=== PATIENT | male | born 1970 | race Two or more races ===

== ENCOUNTER 2018-09-26 12:27 | Emergency (ER) | payer MEDICAID ==
[~2018-09-26] VITALS: Ht 177.8 cm; Wt 90.7 kg
[~2018-09-26 12:27] MED LIST: ASPI81TA27 PO; ATOR40TA52 PO; CLOP75TA41 PO; LISI-646 PO; METO25TA5 PO; NITR0.4S29 SL
[2018-09-26 13:23] VITALS: BP 115/76
[2018-09-26 13:23] LABS: Basophils # (auto) 0.1 uL; Basophils % (auto) 1.3 % (0.0-2.0); Eosinophils # (auto) 0.4 uL; Eosinophils % (auto) 4.6 % (0.0-7.0); Monocytes # (auto) 0.7 uL; Neutrophils # (auto) 6.1 uL
[2018-09-26 13:24] LABS: Hematocrit 45.7 % (41.0-53.0); Hemoglobin 15.4 g/dL (13.5-17.5); Lymphocytes # (auto) 1.3 uL; Lymphocytes % (auto) 14.9 % (10.0-50.0); Mean Corpuscular Hemoglobin 30.8 pg (28.0-32.0); Mean Corpuscular Hgb Conc. 33.6 g/dL (32.0-36.0); Mean Corpuscular Volume 91.5 fL (80.0-100.0); Monocytes % (auto) 8.2 % (0.0-12.0); Platelet Count (auto) 464 10^3/uL (140-450); Red Cell Distribution Width 13.5 % (11.8-14.3); White Blood Cell 8.6 10^3/uL (4.4-10.8)
[2018-09-26 13:39] LABS: Calcium 9.2 mg/dL (8.5-10.1); Potassium 4.4 mmol/L (3.5-5.1)
[2018-09-26 13:45] LABS: BUN/Creatinine Ratio 15.5; Bilirubin, Total 0.4 mg/dL (0.2-1.0); Total Protein 8.1 g/dL (6.4-8.2)
[2018-09-26 14:07] LABS: Urine Bacteria NONE SEEN /hpf (None Seen); Urine Blood Negative /uL (Negative); Urine Hyaline Cast MANY /lpf (0 - 2); Urine Mucus FEW (None Seen); Urine Specific Gravity 1.019 (1.001-1.035); Urine Sperm PRESENT /hpf (None Seen); Urine WBC 4 /hpf (0 - 3)
== END 2018-09-26 16:11 | disposition home or self-care (01) ==
LOC: ER 12:31
DX: J40 Bronchitis, not specified as acute or chronic (principal); E78.5 Hyperlipidemia, unspecified; I10 Essential (primary) hypertension; I25.2 Old myocardial infarction; Z90.49 Acquired absence of other specified parts of digestive tract; Z87.891 Personal history of nicotine dependence; Z98.61 Coronary angioplasty status
CPT/HCPCS: 36415; 71045; 80053; 81001; 84484; 85025; 93005

== ENCOUNTER 2018-12-04 13:58 | Emergency (ER) | payer MEDICAID ==
[~2018-12-04] VITALS: Ht 177.8 cm; Wt 90.7 kg
[~2018-12-04 13:58] MED LIST changes: +ASPI-404 PO; -ASPI81TA27 PO
[2018-12-04 17:43] VITALS: BP 104/67
== END 2018-12-04 20:03 | disposition home or self-care (01) ==
LOC: ER 14:07
DX: R51 Headache (principal); R05 Cough; I10 Essential (primary) hypertension; I25.2 Old myocardial infarction; E78.00 Pure hypercholesterolemia, unspecified; Z90.49 Acquired absence of other specified parts of digestive tract; Z87.891 Personal history of nicotine dependence
CPT/HCPCS: 70450

== ENCOUNTER 2018-12-24 18:43 | Emergency (ER) | payer MEDICAID ==
[~2018-12-24] VITALS: Ht 177.8 cm; Wt 96.2 kg
[2018-12-24 18:56] VITALS: BP 156/106
[2018-12-24 20:26] LABS: Urine WBC None Seen /hpf (0 - 3)
[2018-12-24 20:40] LABS: Urine Bacteria NONE SEEN /hpf (None Seen); Urine Blood 2+ /uL (Negative); Urine Hyaline Cast FEW /lpf (0 - 2); Urine Mucus FEW (None Seen); Urine Specific Gravity 1.007 (1.001-1.035)
[2018-12-24 20:56] LABS: Alcohol, Urine < 3.0 mg/dL (0-5); Amphetamine Screen, Urine POSITIVE (NEGATIVE); Barbiturate Scree,Urine NEGATIVE (NEGATIVE); Benzodiazephine Screen, Urine NEGATIVE (NEGATIVE); Cannabinoid Screen, Urine NEGATIVE (NEGATIVE); Cocaine Screen, Urine NEGATIVE (NEGATIVE); Opiate Scree,Urine NEGATIVE (NEGATIVE); Phencyclidine Screen, Urine NEGATIVE (NEGATIVE)
== END 2018-12-25 00:14 | disposition left against medical advice (07) ==
LOC: ER 18:46
DX: R31.9 Hematuria, unspecified (principal); Z53.21 Procedure and treatment not carried out due to patient leaving prior to being seen by health care provider
CPT/HCPCS: 74176; 80307; 81001

== ENCOUNTER 2022-07-09 11:58 | Inpatient (IN) | payer MEDICAID ==
[~2022-07-09] VITALS: Ht 177.8 cm; Wt 94.7 kg
[~2022-07-09 11:58] MED LIST changes: -ASPI-404 PO; +ASPI-543 PO; -CLOP75TA41 PO; +CLOP75TA70 PO; -LISI-646 PO; +LISI20TA28 PO
[2022-07-09 13:00] LABS: Basophils # (auto) 0.1 10 ^3/uL (0-0.2); Basophils % (auto) 1.2 % (0.0-2.0); Eosinophils # (auto) 0.3 10 ^3/uL (0-0.8); Eosinophils % (auto) 3.6 % (0.0-7.0); Hematocrit 43.8 % (41.0-53.0); Hemoglobin 15.4 g/dL (13.5-17.5); Lymphocytes # (auto) 2.1 10 ^3/uL (0.4-5.4); Lymphocytes % (auto) 25.9 % (10.0-50.0); Mean Corpuscular Hemoglobin 31.1 pg (28.0-32.0); Mean Corpuscular Hgb Conc. 35.1 g/dL (32.0-36.0); Mean Corpuscular Volume 88.6 fL (80.0-100.0); Monocytes # (auto) 0.3 10 ^3/uL (0-1.3); Monocytes % (auto) 4.2 % (0.0-12.0); Neutrophils # (auto) 5.3 10 ^3/uL (1.6-8.6); Neutrophils % (auto) 65.1 % (37.0-80.0); Nucleated Red Blood Cells % 0.1 %; Red Blood Cells 4.94 10^6/uL (4.5-5.90); Red Cell Distribution Width 13.7 % (11.8-14.3); White Blood Cell 8.2 10^3/uL (4.4-10.8)
[2022-07-09] MEDS ORDERED: ASPirin 325 MG TAB PO ONE (13:15)
[2022-07-09 13:16] LABS: INR 0.92 (0.9-1.15); Partial Thromboplastin Time 23.6 sec (24.6-33.4)
[2022-07-09 13:31] LABS: Albumin 3.7 g/dL (3.4-5.0); BUN/Creatinine Ratio 8.6; Bilirubin, Total 0.6 mg/dL (0.2-1.0); Calcium 9.5 mg/dL (8.5-10.1); Potassium 4.5 mmol/L (3.5-5.1); Total Protein 7.1 g/dL (6.4-8.2)
[2022-07-09] MEDS ORDERED: MORPHINE SULFATE INJ 2 MG/ml SYRG IV PRN (14:30)
[2022-07-09] MEDS ORDERED: NITROGLYCERIN 0.4 MG SL TAB SL PRN (14:30)
[2022-07-09] MEDS ORDERED: ACETAMINOPHEN 325 MG TAB PO PRN (14:30)
[2022-07-09] MEDS ORDERED: ENOXAPARIN SOD 100 MG/1 ML SYRINGE SC ONE (14:30)
[2022-07-09] MEDS: SODIUM CHLORIDE 0.9% 1,000 ML IV SCH ×2 (14:48→23:50)
[2022-07-09 15:59] LABS: Cholesterol 266 mg/dL (< 200); HDL Cholesterol 35 mg/dL (40-59); Triglycerides 422 mg/dL (< 150)
[2022-07-09] MEDS: hydrALAZINE HCL 20 MG/ML VL IV PRN (17:30)
[2022-07-09] MEDS ORDERED: hydrALAZINE HCL 20 MG/ML VL IV SCH (18:00)
[2022-07-09] MEDS: traZODone HCL 50 MG TAB PO SCH (21:18)
[2022-07-09] MEDS: ATORVASTATIN 20 MG TAB PO SCH (21:18)
[2022-07-09] MEDS: CARVEDILOL 3.125 MG TAB PO SCH (21:20)
[2022-07-09] MEDS: ENOXAPARIN SOD 100 MG/1 ML SYRINGE SC SCH (21:20)
[2022-07-09] MEDS ORDERED: MELATONIN 5 MG TAB PO ONE (22:00)
[2022-07-10] VITALS (7 sets, daily range): BP systolic 100–161; BP diastolic 61–103
[2022-07-10 05:03] LABS: Basophils # (auto) 0.1 10 ^3/uL (0-0.2); Basophils % (auto) 1.3 % (0.0-2.0); Eosinophils # (auto) 0.4 10 ^3/uL (0-0.8); Eosinophils % (auto) 5.1 % (0.0-7.0); Hematocrit 42.2 % (41.0-53.0); Hemoglobin 14.8 g/dL (13.5-17.5); Lymphocytes # (auto) 2.2 10 ^3/uL (0.4-5.4); Lymphocytes % (auto) 27.6 % (10.0-50.0); Mean Corpuscular Hemoglobin 31.3 pg (28.0-32.0); Mean Corpuscular Hgb Conc. 35.1 g/dL (32.0-36.0); Mean Corpuscular Volume 89.1 fL (80.0-100.0); Monocytes # (auto) 0.4 10 ^3/uL (0-1.3); Monocytes % (auto) 5.1 % (0.0-12.0); Neutrophils # (auto) 4.9 10 ^3/uL (1.6-8.6); Neutrophils % (auto) 60.9 % (37.0-80.0); Nucleated Red Blood Cells % 0.2 %; Red Blood Cells 4.74 10^6/uL (4.5-5.90)
[2022-07-10 05:38] LABS: Albumin 3.2 g/dL (3.4-5.0); BUN/Creatinine Ratio 14.1; Calcium 8.4 mg/dL (8.5-10.1); Potassium 4.1 mmol/L (3.5-5.1)
[2022-07-10 05:41] LABS: Bilirubin, Total 0.4 mg/dL (0.2-1.0); Total Protein 6.8 g/dL (6.4-8.2)
[2022-07-10] MEDS: SODIUM CHLORIDE 0.9% 1,000 ML IV SCH (07:41)
[2022-07-10] MEDS: CARVEDILOL 3.125 MG TAB PO SCH ×2 (09:10→21:46)
[2022-07-10] MEDS: LISINOPRIL 5 MG TAB PO SCH (09:11)
[2022-07-10] MEDS: ASPirin 81 mg TAB PO SCH (09:12)
[2022-07-10] MEDS: ENOXAPARIN SOD 100 MG/1 ML SYRINGE SC SCH ×2 (09:13→21:47)
[2022-07-10] MEDS ORDERED: CARVEDILOL 3.125 MG TAB PO SCH (10:00)
[2022-07-10] MEDS: FUROSEMIDE 40 MG/4 ML VIAL IV SCH (10:32)
[2022-07-10] MEDS: traZODone HCL 50 MG TAB PO SCH (21:46)
[2022-07-10] MEDS: ATORVASTATIN 20 MG TAB PO SCH (21:47)
[2022-07-11 05:00] VITALS: BP 123/72
[2022-07-11 05:35] LABS: BUN/Creatinine Ratio 14.2; Potassium 4.4 mmol/L (3.5-5.1)
[2022-07-11 08:58] VITALS: BP 140/70
[2022-07-11] MEDS: FUROSEMIDE 40 MG/4 ML VIAL IV SCH (09:09)
[2022-07-11] MEDS: ASPirin 81 mg TAB PO SCH (09:10)
[2022-07-11] MEDS: CARVEDILOL 3.125 MG TAB PO SCH ×2 (09:11→21:36)
[2022-07-11] MEDS: LISINOPRIL 5 MG TAB PO SCH (09:12)
[2022-07-11] MEDS: ENOXAPARIN SOD 100 MG/1 ML SYRINGE SC SCH ×2 (09:15→21:38)
[2022-07-11] MEDS: hydrALAZINE HCL 20 MG/ML VL IV PRN (11:44)
[2022-07-11 13:00] VITALS: BP 153/78
[2022-07-11] MEDS: SODIUM CHLORIDE 0.9% 1,000 ML IV SCH (16:30)
[2022-07-11 17:26] VITALS: BP 134/77
[2022-07-11] MEDS: traZODone HCL 50 MG TAB PO SCH (21:37)
[2022-07-11] MEDS: ATORVASTATIN 20 MG TAB PO SCH (21:37)
[2022-07-11 22:00] VITALS: BP 149/90
[2022-07-12 05:00] VITALS: BP 128/83
[2022-07-12 06:13] LABS: Calcium 8.6 mg/dL (8.5-10.1); Potassium 3.8 mmol/L (3.5-5.1)
[2022-07-12 06:17] LABS: BUN/Creatinine Ratio 10.6
[2022-07-12] MEDS: CARVEDILOL 3.125 MG TAB PO SCH (08:47)
[2022-07-12] MEDS: ASPirin 81 mg TAB PO SCH (08:47)
[2022-07-12] MEDS: FUROSEMIDE 40 MG/4 ML VIAL IV SCH (08:48)
[2022-07-12] MEDS: ENOXAPARIN SOD 100 MG/1 ML SYRINGE SC SCH (08:49)
[2022-07-12] MEDS: SODIUM CHLORIDE 0.9% 1,000 ML IV SCH (08:49)
[2022-07-12 09:00] VITALS: BP 155/78
[2022-07-12] MEDS ORDERED: LISINOPRIL 5 MG TAB PO SCH (10:00)
== END 2022-07-12 11:10 | disposition home or self-care (01) | DRG 190 ==
LOC: ER 11:58 → TELE 14:33 → TELE-WESTW 22:46
PROVIDERS: ADMIT Nurse Practitioner Family; ATTEND Internal Medicine
DX: I21.4 Non-ST elevation (NSTEMI) myocardial infarction (principal); I50.23 Acute on chronic systolic (congestive) heart failure; N17.9 Acute kidney failure, unspecified; I25.119 Atherosclerotic heart disease of native coronary artery with unspecified angina pectoris; E66.9 Obesity, unspecified; I13.0 Hypertensive heart and chronic kidney disease with heart failure and stage 1 through stage 4 chronic kidney disease, or unspecified chronic kidney disease; E11.22 Type 2 diabetes mellitus with diabetic chronic kidney disease; N18.9 Chronic kidney disease, unspecified; E78.5 Hyperlipidemia, unspecified; F15.10 Other stimulant abuse, uncomplicated; I08.0 Rheumatic disorders of both mitral and aortic valves; M10.9 Gout, unspecified; I25.2 Old myocardial infarction; Z68.30 Body mass index [BMI] 30.0-30.9, adult; Z87.891 Personal history of nicotine dependence; Z88.6 Allergy status to analgesic agent; Z91.199 Patient's noncompliance with other medical treatment and regimen due to unspecified reason; Z95.5 Presence of coronary angioplasty implant and graft; Z86.718 Personal history of other venous thrombosis and embolism; Z90.49 Acquired absence of other specified parts of digestive tract; Z88.1 Allergy status to other antibiotic agents; Z88.5 Allergy status to narcotic agent
CPT/HCPCS: 36415; 71045; 80048; 80053; 80061; 83036; 83880; 84443; 84484; 85025; 85379; 85610; 85730; 87426; 93005; 93306; 99291; G0378

== ENCOUNTER 2023-03-16 03:44 | Emergency (ER) | payer MEDICAID ==
[~2023-03-16] VITALS: Ht 177.8 cm; Wt 100.0 kg
[~2023-03-16 03:44] MED LIST changes: -LISI20TA28 PO; +LISI20TA56 PO
[2023-03-16 03:45] VITALS: BP 134/94; PULSE 110; RESP 20; O2SAT 94
== END 2023-03-16 06:02 | disposition left against medical advice (07) ==
LOC: ER 03:44
DX: M25.521 Pain in right elbow (principal); M79.605 Pain in left leg; M10.9 Gout, unspecified; Z53.21 Procedure and treatment not carried out due to patient leaving prior to being seen by health care provider

== ENCOUNTER 2024-03-28 06:15 | Emergency (ER) | payer MEDICAID, OTHER ==
[~2024-03-28] VITALS: Ht 172.7 cm; Wt 96.0 kg
--- NOTE | 2024-03-28 07:06 | ED.PDOC ---
History of Present Illness HPI Comments 53-year-old male with PMHx Gout, [place] presents with a chief complaint of flank pain and hematuria x 2 days. Patient states that his pain is localized to his right flank, non-radiating, and is associated with hematuria. Patient denies any dysuria or other urinary symptoms. Patient mentions that he has been exercising daily at the gym and was unsure if his pain is due to over straining his muscles. No other symptoms or modifying factors present at this time. Chief Complaint: Flank Pain Time Seen by MD: 06:48 Primary Care Provider: Toro Reviewed Notes: Medications, Allergies Allergies: Coded Allergies: Acetaminophen (Verified Allergy, Unknown, 09/17/18) Hydrocodone (Verified Allergy, Unknown, 09/17/18) Home Meds Reported Medications Metoprolol Tartrate (Metoprolol Tartrate) 25 Mg Tab, 25 MG PO TID for 30 Days, MG 09/19/18 Clopidogrel Bisulfate (CLOPIDOGREL) 75 Mg Tab, 1 TAB PO DAILY, #90 TAB 1 Refill 09/19/18 Aspirin (Aspir-Low) 81 Mg Tab, 81 MG PO DAILY for 30 Days, MG 09/19/18 Nitroglycerin (NTROSTAT SUBLINGUAL) 0.4 Mg Sl, 0.4 MG SL PRN *MAY REPEAT EVERY 5 MINUTES X 3 TOTAL IF NO RELIEF, INITIATE ANALGESIC THERAPY. NOTIFY PHYSICIAN *Do not crush. 09/19/18 Lisinopril (Lisinopril) 20 Mg Tab, 20 MG PO BID for 30 Days, MG 09/19/18 Atorvastatin Calcium (ATORVASTATIN CALCIUM) 40 Mg Tab, 1 TAB PO QPM, #90 TAB 3 Refills 09/19/18 Information Source: Patient Mode of Arrival: Ambulatory Severity: Moderate Timing: Days Duration: Since onset Prehospital treatment: None Past Medical History PAST MEDICAL HISTORY: Gout, High Lipids, HTN, [place] Surgical History: Cholecystectomy, PTCA Family History Family History: Unknown Social History Smoker: Non-Smoker, Quit Less Than 1 Year Alcohol: Denies ETOH Use Drugs: Denies Drug Use Lives In: Home Constitutional: denies: chills, diaphoresis, fatigue, fever, malaise, sweats, weakness, others EENTM: denies: blurred vision, double vision, ear bleeding, ear discharge, ear drainage, ear pain, ear ringing, eye pain, eye redness, hearing loss, mouth pain, mouth swelling, nasal discharge, nose bleeding, nose congestion, nose pain, photophobia, tearing, throat pain, throat swelling, voice changes, others Respiratory: denies: cough, hemoptysis, orthopnea, SOB at rest, shortness of breath, SOB with excertion, stridor, wheezing, others Cardiovascular: denies: chest pain, dizzy spells, diaphoresis, Dyspnea on exertion, edema, irregular heart beat, left arm pain, lightheadedness, palpitations, PND, syncope, others Gastrointestinal: denies: abdomen distended, abdominal pain, blood streaked bowels, constipated, diarrhea, dysphagia, difficulty swallowing, hematemesis, melena, nausea, poor appetite, poor fluid intake, rectal bleeding, rectal pain, vomiting, others Genitourinary: reports: flank pain, hematuria; denies: burning, dysuria, frequency, incontinence, penile discharge, penile sore, pain, testicle pain, testicle swelling, urgency, others Neurological: denies: dizziness, fainting, headache, left sided numbness, left sided weakness, numbness, paresthesia, pre-existing deficit, right sided numbness, right sided weakness, seizure, speech problems, tingling, tremors, weakness, others Musculoskeletal: denies: back pain, gout, joint pain, joint swelling, muscle pa in, muscle stiffness, neck pain, others Integumetry: denies: bruises, change in color, change in hair/nails, dryness, laceration, lesions, lumps, rash, wounds, others Allergic/Immunocompromised: denies: Difficulty Healing, Frequent Infections, Hives, Itching, others Hematologic/Lymphatic: denies: anemia, blood clots, easy bleeding, easy bruising, swollen glands, others Endocrine: denies: excessive hunger, excessive sweating, excessive thirst, excessive urination, flushing, intolerance to cold, intolerance to heat, unexplained weight gain, unexplained weight loss, others Psychiatric: denies: anxiety, bipolar disorder, depression, hopeless, panic disorder, schizophrenia, sleepless, suicidal, others All Other Systems: Reviewed and Negative Physical Exam General Appearance: No Apparent Distress, Normal HEENT: Normal ENT Inspection, Pharynx Normal, TMs Normal Neck: Full Range of Motion, Non-Tender, Normal, Normal Inspection Respiratory: Chest Non-Tender, Lungs Clear, No Accessory Muscle Use, No Respiratory Distress, Normal Breath Sounds Cardiovascular: No Edema, No JVD, No Murmur, No Gallop, Normal Peripheral Pulses, Regular Rate/Rhythm Breast Exam: Deferred Gastrointestinal: No Organomegaly, Non Tender, No Pulsatile Mass, Normal Bowel Sounds, Soft Genitalia: Deferred Pelvic: Deferred Rectal: Deferred Extremities: No calf tenderness, Normal capillary refill, Normal inspection, Normal range of motion, Non-tender, No pedal edema Musculoskeletal : Apperance: Normal Neurologic: Alert, fluorescent solution mixer II-XII nml as Tested, No Motor Deficits, Normal Affect, Normal Mood, No Sensory Deficits Cerebellar Function: Normal Reflexes: Normal Skin: Dry, Normal Color, Warm Lymphatic: No Adenopathy Was a procedure done? Was a procedure done?: No Differential Dx Considerations may include: renal colic, uti, muscle strain X-Ray, Labs, Meds, VS Vital Signs Date Time Temp Pulse Resp B/P (MAP) Pulse Ox O2 Delivery O2 Flow Rate FiO2 03/28/24 07:28 75 17 03/28/24 07:28 98.1 75 17 153/101 (118) 94 98.1 03/28/24 06:15 97.6 82 20 202/127 (152) 96 Lab Test 03/28/24 07:04 Range/Units White Blood Count 7.6 4.4-10.8 10^3/uL Red Blood Count 5.02 4.5-5.90 10^6/uL Hemoglobin 15.9 13.5-17.5 g/dL Hematocrit 45.5 41.0-53.0 % Mean Corpuscular Volume 90.6 80.0-100.0 fL Mean Corpuscular Hemoglobin 31.6 28.0-32.0 pg Mean Corpuscular Hemoglobin Concent 34.9 32.0-36.0 g/dL Red Cell Distribution Width 13.2 11.8-14.3 % Platelet Count 296 140-450 10^3/uL Mean Platelet Volume 8.0 6.9-10.8 fL Neutrophils (%) (Auto) 56.3 37.0-80.0 % Lymphocytes (%) (Auto) 31.8 10.0-50.0 % Monocytes (%) (Auto) 4.7 0.0-12.0 % Eosinophils (%) (Auto) 6.1 0.0-7.0 % Basophils (%) (Auto) 1.1 0.0-2.0 % Neutrophils # (Auto) 4.3 1.6-8.6 10 ^3/uL Lymphocytes # (Auto) 2.4 0.4-5.4 10 ^3/uL Monocytes # (Auto) 0.4 0-1.3 10 ^3/uL Eosinophils # (Auto) 0.5 0-0.8 10 ^3/uL Basophils # (Auto) 0.1 0-0.2 10 ^3/uL Nucleated Red Blood Cells 0.2 % Sodium Level 135 L 136-145 mmol/L Potassium Level 4.1 3.5-5.1 mmol/L Chloride Level 104 98-107 mmol/L Carbon Dioxide Level 21 20-31 mmol/L Anion Gap 10 5-15 Blood Urea Nitrogen 17 9-23 mg/dL Creatinine 1.78 H 0.700-1.30 mg/dL Glomerular Filtration Rate Calc 45 >90 mL/min BUN/Creatinine Ratio 9.6 L 10.0-20.0 Serum Glucose 338 H 74-106 mg/dL Calcium Level 10.5 H 8.7-10.4 mg/dL Current Medications Medications (Trade) Dose Ordered Sig/Prince Route Start Time Stop Time Status Last Admin Sodium Chloride 1,000 ml @ 1,000 mls/hr Q1H ONCE IV 03/28/24 07:00 03/28/24 07:59 DC 03/28/24 07:35 Ondansetron HCl (Zofran) 4 mg ONCE ONCE IV 03/28/24 07:00 03/28/24 07:01 DC 03/28/24 07:42 Ketorolac Tromethamine (Toradol Injection) 15 mg ONCE ONCE IV 03/28/24 07:00 03/28/24 07:01 DC 03/28/24 07:42 Tamsulosin HCl (Flomax) 0.4 mg ONCE ONCE PO 03/28/24 07:00 03/28/24 07:01 DC 03/28/24 07:35 Time of 1ST Reevaluation: 07:18 Reevaluation 1ST: Unchanged Patient Education/Counseling: Diagnosis, Treatment, Prognosis Family Education/Counseling: No Family Present Departure 1 Departure Time of Disposition: 08:34 (Patient presented with abdominal pain that was concerning for possible appendicits, gastritis, cholecystitis, colitis, gastroenteritis, or orther possible surgical emergency. Data: 1. I ordered and reviewed the result of at least 3 labs including a CBC, BMP, and Urinalysis. 2. I independently interpreted the following tests: CT Abdoment and Pelvis is concerning for ureteral colic .Risk:This patient has a high risk of morbidity due to further diagnostic testing or treatment and may suffer from an acute abdominal process disorder. Fortunately workup reveals ureteral colic and patient can be safely discharged to home with outpatient follow up.Patient was offered admission to the hospital but instead decided to go home.) Impression: Primary Impression: Ureteral colic Disposition: HOME / SELF CARE / HOMELESS Condition: Stable Additional Instructions: You have a kidney stone. You were prescribed flomax. Please take as directed. For pain you can take ibuprofen as needed. You were prescribed oxycodone to take as needed for breakthrough pain. Please take as directed. You should follow up with your regular doctor or a urologist within one week to ensure you are doing better. If your symptoms worsen or you have any other concerns then please return to the ER. e-Prescriptions Oxycodone HCl (Oxycodone Hydrochloride) 5 Mg Tab 5 MG PO TID PRN for 4 Days, #12 TAB Prov: DASIA HAWKINS MD 03/28/24 Tamsulosin Hcl (Flomax) 0.4 Mg Cap 1 CAP PO DAILY for 14 Days, #30 CAP 11 Refills Prov: DASIA HAWKINS MD 03/28/24 Discharged With: Spouse Critical Care Note Critical Care Time?: Yes Critical care comment: Acute abdominal pain Authorized and Performed by: Dasia Hawkins MD Total critical care time: Approximately 38 minutes Due to a high probability of clinically significant, life threatening deterioration, the patient required my highest level of preparedness to i ntervene emergently and I personally spent this critical care time directly and personally managing the patient. This critical care time included obtaining a history; examining the patient; pulse oximetry; ordering and review of studies; arranging urgent treatment with development of a management plan; evaluation of patient's response to treatment; frequent reassessment; and, discussions with other providers. This critical care time was performed to assess and manage the high probability of imminent, life-threatening deterioration that could result in multi-organ failure. It was exclusive of separately billable procedures and treating other patients and teaching time. Please see my other sections and the rest of the note for further information on patient assessment and treatment. Stability Stability form required: No I personally scribed for DASIA HAWKINS MD ([email or web address]) on 03/28/24 at 07:06. Electronically submitted by Angel Hernandez ([email or web address]). DASIA HAWKINS MD Mar 28, 2024 07:06
[2024-03-28 07:31] LABS: Anion Gap 10 (5-15); Carbon Dioxide 21 mmol/L (20-31); Chloride 104 mmol/L (98-107); Potassium 4.1 mmol/L (3.5-5.1); Sodium 135 mmol/L (136-145)
[2024-03-28 07:32] LABS: Calcium 10.5 mg/dL (8.7-10.4)
[2024-03-28] MEDS: TAMSULOSIN HYDROCHLORIDE 0.4 MG CAP PO ONE (07:35)
[2024-03-28] MEDS: SODIUM CHLORIDE 0.9% 1,000 ML IV ONE (07:35)
[2024-03-28 07:37] LABS: BUN/Creatinine Ratio 9.6 (10.0-20.0); Basophils # (auto) 0.1 10 ^3/uL (0-0.2); Basophils % (auto) 1.1 % (0.0-2.0); Blood Urea Nitrogen 17 mg/dL (9-23); Eosinophils # (auto) 0.5 10 ^3/uL (0-0.8); Eosinophils % (auto) 6.1 % (0.0-7.0); Glucose 338 mg/dL (74-106); Hematocrit 45.5 % (41.0-53.0); Hemoglobin 15.9 g/dL (13.5-17.5); Lymphocytes # (auto) 2.4 10 ^3/uL (0.4-5.4); Lymphocytes % (auto) 31.8 % (10.0-50.0); Mean Corpuscular Hemoglobin 31.6 pg (28.0-32.0); Mean Corpuscular Hgb Conc. 34.9 g/dL (32.0-36.0); Mean Corpuscular Volume 90.6 fL (80.0-100.0); Monocytes # (auto) 0.4 10 ^3/uL (0-1.3); Monocytes % (auto) 4.7 % (0.0-12.0); Neutrophils # (auto) 4.3 10 ^3/uL (1.6-8.6); Neutrophils % (auto) 56.3 % (37.0-80.0); Nucleated Red Blood Cells % 0.2 %; Platelet Count (auto) 296 10^3/uL (140-450); Red Blood Cells 5.02 10^6/uL (4.5-5.90); Red Cell Distribution Width 13.2 % (11.8-14.3); White Blood Cell 7.6 10^3/uL (4.4-10.8)
[2024-03-28] MEDS: ONDANSETRON HCL 4 MG/2 ML VIAL IV ONE (07:42)
[2024-03-28] MEDS: KETOROLAC TROMETH 30 MG/ML 1ML VIAL IV ONE (07:42)
--- NOTE | 2024-03-28 07:50 | DVH ---
Exam: CT CT AB PEL WO CON-NO ORAL OR IV History: left flank pain Comparison Study: None available at time of dictation. Technique: Multidetector spiral CT of the abdomen and pelvis was performed from lung bases to pubic s ymphysis. Imaging was performed without intravenous contrast. Coronal and sagittal multiplanar refor mats were obtained from the axial data set by the technologist. Radiation Dose : 1. Abdomen/Pelvis: CTDIvol mGy, DLP mGy*cm. Findings: Evaluation of vasculature and solid organs is limited due to lack of intravenous contrast use. Lung Bases: Lung bases are clear. Visualized portions of the heart and pericardium are unremarkable. Liver: The liver is normal in size. No focal lesions. Diffusely hypoattenuating liver parenchyma con sistent with hepatic steatosis. Gallbladder and Biliary Tree: The gallbladder is surgically absent. No intrahepatic or extrahepatic biliary ductal dilatation. Spleen: Unremarkable Pancreas: The pancreas is grossly unremarkable. Adrenal Glands: Unremarkable Kidneys: Mild left hydroureteronephrosis due to obstructing 4 mm distal left ureteral calculus. Sabas tional nonobstructing left intrarenal calculi measuring up to 3 mm in the left kidney. GI tract: The stomach is grossly normal in appearance. No evidence of small bowel wall thickening or abnormal dilatation to suggest bowel obstruction. The colon is unremarkable. Sigmoid diverticulosis without diverticulitis. The appendix is normal in caliber. Peritoneum/mesentery/retroperitoneum. No evidence of free intraperitoneal air. No ascites. No evidenc e of suspicious lymphadenopathy. Abdominal Wall: Unremarkable. Vasculature: The visualized abdominal aorta is normal in size and caliber. Evaluation of abdominal a nd pelvic vessels is limited due to lack of intravenous contrast. Urinary Bladder: Grossly unremarkable for degree of distention. Pelvic Organs: Unremarkable Musculoskeletal: No aggressive focal bony lesions, acute fractures or dislocation. IMPRESSION: 1. No acute abdominal or pelvic findings. 2. Hepatic steatosis. 3. Sigmoid diverticulosis without acute diverticulitis.
[2024-03-28] MEDS ORDERED: TAMS-35 PO (08:38)
[2024-03-28] MEDS ORDERED: OXYC-900 PO (08:38)
[2024-03-28 08:59] VITALS: BP 157/89; PULSE 80; RESP 20; TEMP 98.2; O2SAT 95
[2024-03-28] MEDS ORDERED: CHOL1CAP21 PO (23:50)
[2024-03-28] MEDS ORDERED: LISI10TA34 PO (23:50)
[2024-03-28] MEDS ORDERED: METF-370 PO (23:50)
[2024-03-28] MEDS ORDERED: FURO40TA4 PO (23:50)
[2024-03-28] MEDS ORDERED: GLIP10TA9 PO (23:50)
[2024-03-28] MEDS ORDERED: CARV6.2551 PO (23:50)
[2024-03-28] MEDS ORDERED: FENO54TA4 PO (23:50)
== END 2024-03-28 09:01 | disposition home or self-care (01) ==
LOC: ER 06:15
DX: N23 Unspecified renal colic (principal); I10 Essential (primary) hypertension; I25.2 Old myocardial infarction; M10.9 Gout, unspecified; E78.5 Hyperlipidemia, unspecified; Z90.49 Acquired absence of other specified parts of digestive tract; Z87.891 Personal history of nicotine dependence; Z79.02 Long term (current) use of antithrombotics/antiplatelets; Z79.82 Long term (current) use of aspirin; Z79.899 Other long term (current) drug therapy; Z88.5 Allergy status to narcotic agent; Z98.890 Other specified postprocedural states; Z88.8 Allergy status to other drugs, medicaments and biological substances
CPT/HCPCS: 36415; 74176; 80048; 85025; 96361; 96374; 96375; 99285; J1885; J2405; J7030

== ENCOUNTER 2024-03-28 10:29 | Inpatient (IN) | payer OTHER ==
[~2024-03-28] VITALS: Ht 172.7 cm; Wt 100.2 kg
[~2024-03-28 10:29] MED LIST changes: +OXYC-900 PO; +TAMS-35 PO
--- NOTE | 2024-03-28 10:47 | ED.PDOC ---
HPI Comments 53-year-old male brought in by EMS presents with a chief complaint of chest pain x onset 15 minutes. Patient was just seen and discharged from this facility this morning with a diagnosis of Ureteral Colic. Patient reports that when he got home he began to have sternal chest pressure and based on his previous [place] in the past he decided to call 911. Patient describes sensation as pressure. Patient was also hypertensive according to EMS with a BP systolic of 205. Blood sugar was 462. Chief Complaint: Chest Pain Time Seen by MD: 10:32 Primary Care Provider: Toro Reviewed Notes: Medications, Allergies Allergies: Coded Allergies: Acetaminophen (Verified Allergy, Unknown, 09/17/18) Hydrocodone (Verified Allergy, Unknown, 09/17/18) Home Meds Active Scripts Oxycodone HCl (Oxycodone Hydrochloride) 5 Mg Tab, 5 MG PO TID PRN for 4 Days, #12 TAB Prov:DASIA HAWKINS MD 03/28/24 Tamsulosin Hcl (Flomax) 0.4 Mg Cap, 1 CAP PO DAILY for 14 Days, #30 CAP 11 Refills Prov:DASIA HAWKINS MD 03/28/24 Reported Medications Metoprolol Tartrate (Metoprolol Tartrate) 25 Mg Tab, 25 MG PO TID for 30 Days, MG 09/19/18 Clopidogrel Bisulfate (CLOPIDOGREL) 75 Mg Tab, 1 TAB PO DAILY, #90 TAB 1 Refill 09/19/18 Aspirin (Aspir-Low) 81 Mg Tab, 81 MG PO DAILY for 30 Days, MG 09/19/18 Nitroglycerin (NTROSTAT SUBLINGUAL) 0.4 Mg Sl, 0.4 MG SL PRN *MAY REPEAT EVERY 5 MINUTES X 3 TOTAL IF NO RELIEF, INITIATE ANALGESIC THERAPY. NOTIFY PHYSICIAN *Do not crush. 09/19/18 Lisinopril (Lisinopril) 20 Mg Tab, 20 MG PO BID for 30 Days, MG 09/19/18 Atorvastatin Calcium (ATORVASTATIN CALCIUM) 40 Mg Tab, 1 TAB PO QPM, #90 TAB 3 Refills 09/19/18 Information Source: Patient, Emergency Med Personnel Mode of Arrival: EMS Severity: Moderate Timing: Minutes Duration: Since onset Prehospital treatment: Accucheck (462) Location: Substernal Radiation: No Radiation Quality: Pressure Onset: With Light Exertion PE Risk Factors: None History of: [place] Past Medical History PAST MEDICAL HISTORY: Gout, High Lipids, HTN, [place] Surgical History: Cholecystectomy, PTCA Family History Family History: Unknown Social History Smoker: Non-Smoker, Quit Less Than 1 Year Alcohol: Denies ETOH Use Drugs: Denies Drug Use Lives In: Home Constitutional: denies: chills, diaphoresis, fatigue, fever, malaise, sweats, weakness, others EENTM: denies: blurred vision, double vision, ear bleeding, ear discharge, ear drainage, ear pain, ear ringing, eye pain, eye redness, hearing loss, mouth pain, mouth swelling, nasal discharge, nose bleeding, nose congestion, nose pain, photophobia, tearing, throat pain, throat swelling, voice changes, others Respiratory: denies: cough, hemoptysis, orthopnea, SOB at rest, shortness of breath, SOB with excertion, stridor, wheezing, others Cardiovascular: reports: chest pain; denies: dizzy spells, diaphoresis, Dyspnea on exertion, edema, irregular heart beat, left arm pain, lightheadedness, palpitations, PND, syncope, others Gastrointestinal: denies: abdomen distended, abdominal pain, blood streaked bowels, constipated, diarrhea, dysphagia, difficulty swallowing, hematemesis, melena, nausea, poor appetite, poor fluid intake, rectal bleeding, rectal pain, vomiting, others Genitourinary: denies: burning, dysuria, flank pain, frequency, hematuria, incontinence, penile discharge, penile sore, pain, testicle pain, testicle swelling, urgency, others Neurological: denies: dizziness, fainting, headache, left sided numbness, left sided weakness, numbness, paresthesia, pre-existing deficit, right sided numbness, right sided weakness, seizure, speech problems, tingling, tremors, weakness, others Musculoskeletal: denies: back pain, gout, joint pain, joint swelling, muscle pain, muscle stiffness, neck pain, others Integumetry: denies: bruises, change in color, change in hair/nails, dryness, laceration, lesions, lumps, rash, wounds, others Allergic/Immunocompromised: denies: Difficulty Healing, Frequent Infections, Hives, Itching, others Hematologic/Lymphatic: denies: anemia, blood clots, easy bleeding, easy bruising, swollen glands, others Endocrine: denies: excessive hunger, excessive sweating, excessive thirst, excessive urination, flushing, intolerance to cold, intolerance to heat, unexplained weight gain, unexplained weight loss, others Psychiatric: denies: anxiety, bipolar disorder, depression, hopeless, panic disorder, schizophrenia, sleepless, suicidal, others All Other Systems: Reviewed and Negative Physical Exam General Appearance: No Apparent Distress, Normal HEENT: Normal ENT Inspection, Pharynx Normal, TMs Normal Neck: Full Range of Motion, Non-Tender, Normal, Normal Inspection Respiratory: Chest Non-Tender, Lungs Clear, No Accessory Muscle Use, No Resp iratory Distress, Normal Breath Sounds Cardiovascular: No Edema, No JVD, No Murmur, No Gallop, Normal Peripheral Pulses, Regular Rate/Rhythm Breast Exam: Deferred Gastrointestinal: No Organomegaly, Non Tender, No Pulsatile Mass, Normal Bowel Sounds, Soft Genitalia: Deferred Pelvic: Deferred Rectal: Deferred Extremities: No calf tenderness, Normal capillary refill, Normal inspection, Normal range of motion, Non-tender, No pedal edema Musculoskeletal : Apperance: Normal Neurologic: Alert, supplemental manager II-XII nml as Tested, No Motor Deficits, Normal Affect, Normal Mood, No Sensory Deficits Cerebellar Function: Normal Reflexes: Normal Skin: Dry, Normal Color, Warm Lymphatic: No Adenopathy Was a procedure done? Was a procedure done?: No CP Differential Dx Differential Diagnosis: Electrolyte Disorder, MAT, PAC's, PVC's Differential Diagnosis: HTN Essential, HTN Accelerated, HTN Encephalopathy Differential Diagnosis: Cholelithiasis, Gastritis, Pneumonia X-Ray, Labs, Meds, VS Vital Signs Date Time Temp Pulse Resp B/P (MAP) Pulse Ox O2 Delivery O2 Flow Rate FiO2 03/28/24 12:34 106 03/28/24 12:00 96 03/28/24 11:38 105 25 174/120 03/28/24 11:35 94 Nasal Cannula* 2 28 03/28/24 11:34 87 03/28/24 11:20 89 19 96 Room Air* 0 21 03/28/24 11:08 94 18 159/114 03/28/24 10:53 86 22 163/105 (124) 98 03/28/24 10:37 98.2 92 18 205/130 (155) 93 03/28/24 10:31 90 Lab Test 03/28/24 11:55 03/28/24 10:50 Range/Units Troponin I High Sensitivity 251 *H 250 *H </=54 ng/L White Blood Count 10.3 # 4.4-10.8 10^3/uL Red Blood Count 4.68 4.5-5.90 10^6/uL Hemoglobin 14.9 13.5-17.5 g/dL Hematocrit 42.5 41.0-53.0 % Mean Corpuscular Volume 90.7 80.0-100.0 fL Mean Corpuscular Hemoglobin 31.8 28.0-32.0 pg Mean Corpuscular Hemoglobin Concent 35.1 32.0-36.0 g/dL Red Cell Distribution Width 13.5 11.8-14.3 % Platelet Count 275 140-450 10^3/uL Mean Platelet Volume 8.3 6.9-10.8 fL Neutrophils (%) (Auto) 78.1 37.0-80.0 % Lymphocytes (%) (Auto) 14.6 10.0-50.0 % Monocytes (%) (Auto) 4.5 0.0-12.0 % Eosinophils (%) (Auto) 2.3 0.0-7.0 % Basophils (%) (Auto) 0.5 0.0-2.0 % Neutrophils # (Auto) 8.0 1.6-8.6 10 ^3/uL Lymphocytes # (Auto) 1.5 0.4-5.4 10 ^3/uL Monocytes # (Auto) 0.5 0-1.3 10 ^3/uL Eosinophils # (Auto) 0.2 0-0.8 10 ^3/uL Basophils # (Auto) 0 0-0.2 10 ^3/uL Nucleated Red Blood Cells 0.2 % Sodium Level 132 L 136-145 mmol/L Potassium Level 4.4 3.5-5.1 mmol/L Chloride Level 104 98-107 mmol/L Carbon Dioxide Level 18 L 20-31 mmol/L Anion Gap 10 5-15 Blood Urea Nitrogen 18 9-23 mg/dL Creatinine 2.00 H 0.700-1.30 mg/dL Glomerular Filtration Rate Calc 39 >90 mL/min BUN/Creatinine Ratio 9.0 L 10.0-20.0 Serum Glucose 454 #*H 74-106 mg/dL Calcium Level 9.9 8.7-10.4 mg/dL Current Medications Medications (Trade) Dose Ordered Sig/Prince Route Start Time Stop Time Status Last Admin Morphine Sulfate 4 mg ONCE ONCE IV 03/28/24 10:45 03/28/24 10:46 DC 03/28/24 11:08 Ondansetron HCl (Zofran) 4 mg ONCE ONCE IV 03/28/24 10:45 03/28/24 10:46 DC 03/28/24 11:08 Sodium Chloride 1,000 ml @ 1,000 mls/hr Q1H ONCE IV 03/28/24 10:45 03/28/24 11:44 DC 03/28/24 11:08 Time of 1ST Reevaluation: 11:02 Reevaluation 1ST: Unchanged Patient Education/Counseling: Diagnosis, Treatment, Prognosis Family Education/Counseling: No Family Present Departure 1 Departure Time of Disposition: 12:43 (Patient presented with chest pain that was concerning for possible STEMI, ACS, PE, Pneumonia, Muscle Strain, COPD, Dissection. Data: 1. I ordered and reviewed the result of at least 3 labs including a CBC, BMP, and Troponin. 2. I independently interpreted the following tests: EKG which shows sinus arrhythmia and Chest X-ray which shows benign chest.Risk:This patient has a high risk of morbidity due to further diagnostic testing or treatment and may suffer from an acute cardiac or respiratory disorder. Workup reveals concern for ACS in the setting of recently diagnosed kidney stone and patient should be admitted for further workup and possible expert consultation. ) Impression: Primary Impression: NSTEMI (non-ST elevated myocardial infarction) Additional Impressions: Acute chest pain Renal colic on left side Disposition: ADMITTED INPATIENT Admit to: Med Surg Condition: Serious Critical Care Note Critical Care Time?: Yes Critical care comment: Acute chest pain Authorized and Performed by: Dasia Hawkins MD Total critical care time: Approximately 39 minutes Due to a high probability of clinically significant, life threatening deterioration, the patient required my highest level of preparedness to intervene emergently and I personally spent this critical care time directly and personally managing the patient. This critical care time included obtaining a history; examining the patient; pulse oximetry; ordering and review of studies; arranging urgent treatment with development of a management plan; evaluation of patient's response to treatment; frequent reassessment; and, discussions with other providers. This critical care time was performed to assess and manage the high probability of imminent, life-threatening deterioration that could result in multi-organ failure. It was exclusive of separately billable procedures and treating other patients and teaching time. Please see my other sections and the rest of the note for further information on patient assessment and treatment. Stability Stability form required: No Heart Score Heart Score: Heart Score Response (Comments) Value History Moderate Suspicious 1 EKG Repolarization Disturb 1 Age 45-64 1 Risk Factors >3 or Hx ASHD 2 Troponin >3 x's Normal limit 2 Total 7 I personally scribed for DASIA HAWKINS MD ([email or web address]) on 03/28/24 at 10:47. Electronically submitted by Angel Hernandez [email or web address]). DASIA HAWKINS MD Mar 28, 2024 10:47
[2024-03-28] MEDS: MORPHINE SULFATE 4 MG/ML SYR/VIAL IV ONE (11:08)
[2024-03-28] MEDS: SODIUM CHLORIDE 0.9% 1,000 ML IV ONE (11:08)
[2024-03-28] MEDS: ONDANSETRON HCL 4 MG/2 ML VIAL IV ONE (11:08)
[2024-03-28 11:20] VITALS: PULSE 89; RESP 19; O2SAT 96
[2024-03-28 11:31] LABS: Chloride 104 mmol/L (98-107); Potassium 4.4 mmol/L (3.5-5.1); Sodium 132 mmol/L (136-145)
[2024-03-28 11:32] LABS: Anion Gap 10 (5-15); Calcium 9.9 mg/dL (8.7-10.4); Carbon Dioxide 18 mmol/L (20-31)
[2024-03-28 11:37] LABS: Blood Urea Nitrogen 18 mg/dL (9-23)
[2024-03-28 11:39] LABS: Glucose 454 mg/dL (74-106)
[2024-03-28 11:40] LABS: Basophils # (auto) 0 10 ^3/uL (0-0.2); Basophils % (auto) 0.5 % (0.0-2.0); Eosinophils # (auto) 0.2 10 ^3/uL (0-0.8); Eosinophils % (auto) 2.3 % (0.0-7.0); Hematocrit 42.5 % (41.0-53.0); Hemoglobin 14.9 g/dL (13.5-17.5); Lymphocytes # (auto) 1.5 10 ^3/uL (0.4-5.4); Lymphocytes % (auto) 14.6 % (10.0-50.0); Mean Corpuscular Hemoglobin 31.8 pg (28.0-32.0); Mean Corpuscular Hgb Conc. 35.1 g/dL (32.0-36.0); Mean Corpuscular Volume 90.7 fL (80.0-100.0); Monocytes # (auto) 0.5 10 ^3/uL (0-1.3); Monocytes % (auto) 4.5 % (0.0-12.0); Neutrophils % (auto) 78.1 % (37.0-80.0); Nucleated Red Blood Cells % 0.2 %; Platelet Count (auto) 275 10^3/uL (140-450); Red Blood Cells 4.68 10^6/uL (4.5-5.90); Red Cell Distribution Width 13.5 % (11.8-14.3); White Blood Cell 10.3 10^3/uL (4.4-10.8)
[2024-03-28] MEDS: ASPirin 81 mg TAB PO ONE (13:03)
--- NOTE | 2024-03-28 13:11 | DVH ---
CHEST RADIOGRAPH Indication: chest pain Technique: Single frontal view of the chest was obtained Comparison: XY CHEST XRAY 1 VIEW on DOS: 07/09/22, CHEST PORTABLE on DOS: 09/26/18, CHEST PORTABLE on DO S: 09/18/18 FINDINGS: Lines and Tubes: None Lungs: No focal consolidation. Pleura: No effusion. No pneumothorax. Cardiomediastinal contours: Unremarkable Bones: No acute osseous abnormality. IMPRESSION: No acute cardiopulmonary disease.
[2024-03-28] MEDS: HEPARIN SODIUM (PORCINE) 5000 UNITS/ML 1ML VIAL IV ONE ×2 (13:14→22:15)
[2024-03-28] MEDS: HEPARIN DRIP/D5W 100UNITS/ML 250 ML IV SCH (13:16)
[2024-03-28 13:38] LABS: INR 0.96 (0.9-1.15); Partial Thromboplastin Time 25.4 SEC (24.5-34.5); Prothrombin Time 10.2 sec (9.3-11.8)
[2024-03-28 14:53] LABS: Basophils # (auto) 0 10 ^3/uL (0-0.2); Basophils % (auto) 0.3 % (0.0-2.0); Eosinophils # (auto) 0.1 10 ^3/uL (0-0.8); Eosinophils % (auto) 0.9 % (0.0-7.0); Hematocrit 44.8 % (41.0-53.0); Hemoglobin 15.3 g/dL (13.5-17.5); Lymphocytes # (auto) 1.1 10 ^3/uL (0.4-5.4); Lymphocytes % (auto) 8.3 % (10.0-50.0); Mean Corpuscular Hemoglobin 31.7 pg (28.0-32.0); Mean Corpuscular Hgb Conc. 34.2 g/dL (32.0-36.0); Mean Corpuscular Volume 92.8 fL (80.0-100.0); Monocytes # (auto) 0.6 10 ^3/uL (0-1.3); Monocytes % (auto) 4.3 % (0.0-12.0); Neutrophils # (auto) 11.4 10 ^3/uL (1.6-8.6); Neutrophils % (auto) 86.2 % (37.0-80.0); Nucleated Red Blood Cells % 0.2 %; Platelet Count (auto) 328 10^3/uL (140-450); Red Blood Cells 4.83 10^6/uL (4.5-5.90); Red Cell Distribution Width 13.3 % (11.8-14.3); White Blood Cell 13.2 10^3/uL (4.4-10.8)
--- NOTE | 2024-03-28 17:52 | DVHHP2 ---
Admitting Diagnosis: Chest pain History of Present Illness HPI 53 y/o male patient presents with c/o chest pain. Patient states he had pressure-like chest pain. Per EMS patient was hypertensive with systolic pressure in the 200s. Patient was recently seen at this hospital and was diagnosed with ureteral colic. While in the emergency department the patient was evaluated by the provider, As per provider: Labs, vital signs, and imagining monitored. Patient will be admitted for further evaluation and treatment. I discussed admission with the patient/family and is in agreement to treatment plan. Home Meds Active Scripts Oxycodone HCl (Oxycodone Hydrochloride) 5 Mg Tab, 5 MG PO TID PRN for 4 Days, #12 TAB Prov:DASIA HAWKINS MD 03/28/24 Tamsulosin Hcl (Flomax) 0.4 Mg Cap, 1 CAP PO DAILY for 14 Days, #30 CAP 11 Refills Prov:DASIA HAWKINS MD 03/28/24 Reported Medications Lisinopril (Lisinopril) 10 Mg Tab, 1 TAB PO DAILY 03/28/24 Cholecalciferol (Vitamin D3) 50,000 Unit Cap, 1 CAP PO QWEEKLY 03/28/24 Fenofibrate (Fenofibrate) 54 Mg Tab, 1 TAB PO DAILY 03/28/24 Furosemide (Furosemide) 40 Mg Tab, 1 TAB PO DAILY 03/28/24 Carvedilol (Carvedilol) 6.25 Mg Tab, 1 TAB PO BID 03/28/24 Metformin Hydrochloride (Metformin Hcl) 500 Mg Tab, 1 TAB PO BID 03/28/24 Glipizide (Glipizide) 10 Mg Tab, 1 TAB PO BID 03/28/24 Metoprolol Tartrate (Metoprolol Tartrate) 25 Mg Tab, 25 MG PO TID for 30 Days, MG 09/19/18 Clopidogrel Bisulfate (CLOPIDOGREL) 75 Mg Tab, 1 TAB PO DAILY, #90 TAB 1 Refill 09/19/18 Aspirin (Aspir-Low) 81 Mg Tab, 81 MG PO DAILY for 30 Days, MG 09/19/18 Nitroglycerin (NTROSTAT SUBLINGUAL) 0.4 Mg Sl, 0.4 MG SL PRN *MAY REPEAT EVERY 5 MINUTES X 3 TOTAL IF NO RELIEF, INITIATE ANALGESIC THERAPY. NOTIFY PHYSICIAN *Do not crush. 09/19/18 Atorvastatin Calcium (ATORVASTATIN CALCIUM) 40 Mg Tab, 1 TAB PO QPM, #90 TAB 3 Refills 09/19/18 Past Medical History Patient Family History: Patient reports no known family medical history. Review of Systems Comments Constitutional: denies chills, denies fever, denies malaise Eyes: denies eye pain, denies vision change ENT: denies ear pain, denies headache, denies nasal congestion, denies painful swallowing, denies voice change Cardiovascular: denies edema, denies orthopnea, denies palpitations, denies paroxysmal nocturnal dyspnea Respiratory: denies cough, denies shortness of breath Gastrointestinal: denies constipation, denies diarrhea, denies nausea, denies vomiting Genitourinary: denies dysuria, denies frequent urination, denies urethral discharge Musculoskeletal: denies back pain, denies joint pain, denies muscle pain Skin: denies bruising, denies itching, denies rash Neurological: denies focal weakness, denies headache, denies sensory changes Psychiatric: denies anxiety, denies depression Endocrine: denies polydipsia, denies polyuria Hematologic/Lymphatic: denies easy bleeding, denies easy bruising, denies enlarged lymph nodes Allergic/Immunologic: denies allergy, denies hives H&P Exam Vital Signs Vital Signs Date Time Temp Pulse Resp B/P (MAP) Pulse Ox O2 Delivery O2 Flow Rate FiO2 03/28/24 17:00 89 16 139/73 (95) 95 03/28/24 11:35 Nasal Cannula* 2 28 03/28/24 10:37 98.2 Comments General Appearance: alert, no distress HEENT: EOMI, PERRLA, normal external inspect of ears, no icterus, no nasal drainage Neck: no carotid bruit, no jugular venous distention (JVD), no lymphadenopathy Chest: normal thorax Respiratory: clear to auscultation, normal air movement Cardiovascular: regular rate and rhythm, no diastolic murmur, no jugular venous distention (JVD), no rub, no systolic murmur Abdominal: soft, no hepatomegaly, no mass, no splenomegaly, no tenderness Genitourinary: grossly normal external Musculoskeletal: no joint tenderness, no swelling Extremities: normal pulses, no calf tenderness, no clubbing, no cyanosis, no edema Skin: no bruising, no jaundice, no rash Neurological: alert, No focal deficit Labs/Xrays Labs Test 03/28/24 14:28 03/28/24 10:50 Range/Units White Blood Count 13.2 #H 4.4-10.8 10^3/uL Red Blood Count 4.83 4.5-5.90 10^6/uL Hemoglobin 15.3 13.5-17.5 g/dL Hematocrit 44.8 41.0-53.0 % Mean Corpuscular Volume 92.8 80.0-100.0 fL Mean Corpuscular Hemoglobin 31.7 28.0-32.0 pg Mean Corpuscular Hemoglobin Concent 34.2 32.0-36.0 g/dL Red Cell Distribution Width 13.3 11.8-14.3 % Platelet Count 328 140-450 10^3/uL Mean Platelet Volume 8.4 6.9-10.8 fL Neutrophils (%) (Auto) 86.2 H 37.0-80.0 % Lymphocytes (%) (Auto) 8.3 L 10.0-50.0 % Monocytes (%) (Auto) 4.3 0.0-12.0 % Eosinophils (%) (Auto) 0.9 0.0-7.0 % Basophils (%) (Auto) 0.3 0.0-2.0 % Neutrophils # (Auto) 11.4 H 1.6-8.6 10 ^3/uL Lymphocytes # (Auto) 1.1 0.4-5.4 10 ^3/uL Monocytes # (Auto) 0.6 0-1.3 10 ^3/uL Eosinophils # (Auto) 0.1 0-0.8 10 ^3/uL Basophils # (Auto) 0 0-0.2 10 ^3/uL Nucleated Red Blood Cells 0.2 % Troponin I High Sensitivity 549 *H </=54 ng/L Prothrombin Time 10.2 9.3-11.8 sec Prothrombin Time INR 0.96 0.9-1.15 Activated Partial Thromboplast Time 25.4 24.5-34.5 SEC Sodium Level 132 L 136-145 mmol/L Potassium Level 4.4 3.5-5.1 mmol/L Chloride Level 104 98-107 mmol/L Carbon Dioxide Level 18 L 20-31 mmol/L Anion Gap 10 5-15 Blood Urea Nitrogen 18 9-23 mg/dL Creatinine 2.00 H 0.700-1.30 mg/dL Glomerular Filtration Rate Calc 39 >90 mL/min BUN/Creatinine Ratio 9.0 L 10.0-20.0 Serum Glucose 454 #*H 74-106 mg/dL Calcium Level 9.9 8.7-10.4 mg/dL Assessment/Plan Plan 1. Chest pain Monitor, cardiology consult, trend troponin 2. NSTEMI Monitor, cardiology consult, Heparin GTT 3. HLD Monitor 4. DM II w/ hyperglycemia Monitor, insulin SS Plan discussed with: Patient, Other ISA GRANT NP Mar 28, 2024 17:52
[2024-03-28] MEDS ORDERED: MORPHINE SULFATE INJ 2 MG/ml SYRG IV PRN (18:00)
[2024-03-28] MEDS ORDERED: DEXTROSE (50%) 50ML SYRG IV PRN (18:00)
[2024-03-28] MEDS ORDERED: NITROGLYCERIN 0.4 MG SL TAB SL SCH (18:00)
--- NOTE | 2024-03-28 18:20 | ECG ---
[facility] Test Date: 2024-03-28 Test Time: 10:31:21 Pat Name: VALENTINE SMITH Department: ER Room: 0280T Gender: M Steward/Stewardess Wine: KYLAH : 1970 Requested By: DASIA HAWKINS Order Number: [id number] Reading MD: Wm Banks Measurements Intervals [place] Rate: 90 P: 57 MT: 167 QRS: 51 QRSD: 123 T: 94 QT: 393 QTc: 481 Interpretive Statements Sinus rhythm Probable left atrial enlargement Nonspecific intraventricular conduction delay Inferior infarct, old Electronically Signed On 03-29-2024 14:16:17 PST by Wm Banks Please click the below link to view image of tracing.
--- NOTE | 2024-03-28 18:20 | ECG ---
[facility] Test Date: 2024-03-28 Test Time: 11:34:47 Pat Name: VALENTINE SMITH Department: ER Room: 0280T Gender: M Product Builder: KYLAH : 1970 Requested By: DASIA HAWKINS Order Number: [id number] Reading MD: Wm Banks Measurements Intervals [place] Rate: 87 P: 59 MN: 164 QRS: 62 QRSD: 122 T: 111 QT: 388 QTc: 467 Interpretive Statements Sinus rhythm Nonspecific intraventricular conduction delay Abnormal inferior Q waves Borderline repolarization abnormality Electronically Signed On 03-29-2024 14:16:33 PST by Wm Banks Please click the below link to view image of tracing.
[2024-03-28] MEDS: SODIUM CHLORIDE 0.9% 1,000 ML IV SCH (18:21)
--- NOTE | 2024-03-28 18:21 | ECG ---
[facility] Test Date: 2024-03-28 Test Time: 12:34:48 Pat Name: VALENTINE SMITH Department: ER Room: 0280T Gender: M Junior Brand Manager: KYLAH : 1970 Requested By: DASIA HAWKINS Order Number: [id number] Reading MD: Wm Banks Measurements Intervals [place] Rate: 106 P: 65 [place]: 158 QRS: 66 QRSD: 121 T: 192 QT: 344 QTc: 457 Interpretive Statements Sinus tachycardia Nonspecific intraventricular conduction delay Anterior infarct, old Repol abnrm suggests ischemia, lateral leads Electronically Signed On 03-29-2024 14:17:03 PST by Wm Banks Please click the below link to view image of tracing.
[2024-03-28 20:00] VITALS: PULSE 92; RESP 18; O2SAT 95
[2024-03-28 20:42] LABS: INR 0.95 (0.9-1.15); Prothrombin Time 10.1 sec (9.3-11.8)
[2024-03-28] MEDS: InsuLIN REG 1unit/0.01ml Soln (100units/ml) SC SCH (22:00)
[2024-03-28 22:36] VITALS: BP 144/102; PULSE 100; RESP 17; TEMP 97.9; O2SAT 95
[2024-03-28 22:52] VITALS: PULSE 88; RESP 18; O2SAT 93
[2024-03-28] MEDS: ATORVASTATIN 20 MG TAB PO SCH (23:24)
[2024-03-28] MEDS: METOPROLOL TARTRATE 25 MG TAB PO SCH (23:25)
[2024-03-28] MEDS: LISINOPRIL 20 MG TAB PO SCH (23:25)
[2024-03-28] MEDS: ACCU-CHEK COMFORT CURVE STRIP VI SCH (23:41)
[2024-03-28] MEDS ORDERED: METF-370 PO (23:50)
[2024-03-28] MEDS ORDERED: CARV6.2551 PO (23:50)
[2024-03-28] MEDS ORDERED: CHOL1CAP21 PO (23:50)
[2024-03-28] MEDS ORDERED: LISI10TA34 PO (23:50)
[2024-03-28] MEDS ORDERED: FURO40TA4 PO (23:50)
[2024-03-28] MEDS ORDERED: FENO54TA4 PO (23:50)
[2024-03-28] MEDS ORDERED: GLIP10TA9 PO (23:50)
[2024-03-29] VITALS (8 sets, daily range): BP systolic 95–141; BP diastolic 58–84; PULSE 74–95; RESP 16–20; TEMP 97.6–99.3; O2SAT 92–97
[2024-03-29] MEDS: HEPARIN SODIUM (PORCINE) 5000 UNITS/ML 1ML VIAL IV ONE ×2 (00:23→06:50)
[2024-03-29] MEDS: InsuLIN REG 1unit/0.01ml Soln (100units/ml) SC SCH (05:57)
[2024-03-29 06:08] LABS: INR 0.99 (0.9-1.15); Partial Thromboplastin Time 33.8 SEC (24.5-34.5); Prothrombin Time 10.5 sec (9.3-11.8)
[2024-03-29 06:09] LABS: Alanine Aminotransferase 34 U/L (7-40); Albumin 3.8 g/dL (3.2-4.8); Alkaline Phosphatase 109 U/L (46-116); Anion Gap 11 (5-15); Aspartate Aminotransferase 84 U/L (13-40); BUN/Creatinine Ratio 6.4 (10.0-20.0); Blood Urea Nitrogen 16 mg/dL (9-23); Calcium 9.3 mg/dL (8.7-10.4); Carbon Dioxide 18 mmol/L (20-31); Chloride 104 mmol/L (98-107); Potassium 4.2 mmol/L (3.5-5.1); Sodium 133 mmol/L (136-145)
[2024-03-29 06:10] LABS: Bilirubin, Total 0.6 mg/dL (0.2-1.0); Total Protein 6.1 g/dL (5.7-8.2)
[2024-03-29 06:19] LABS: Glucose 346 mg/dL (74-106)
[2024-03-29 06:21] LABS: Basophils # (auto) 0.1 10 ^3/uL (0-0.2); Basophils % (auto) 0.7 % (0.0-2.0); Eosinophils # (auto) 0.1 10 ^3/uL (0-0.8); Eosinophils % (auto) 0.8 % (0.0-7.0); Hematocrit 40.9 % (41.0-53.0); Hemoglobin 14.1 g/dL (13.5-17.5); Lymphocytes # (auto) 1.2 10 ^3/uL (0.4-5.4); Lymphocytes % (auto) 10.7 % (10.0-50.0); Mean Corpuscular Hemoglobin 32.1 pg (28.0-32.0); Mean Corpuscular Hgb Conc. 34.5 g/dL (32.0-36.0); Mean Corpuscular Volume 93.1 fL (80.0-100.0); Monocytes # (auto) 0.6 10 ^3/uL (0-1.3); Monocytes % (auto) 5.1 % (0.0-12.0); Neutrophils # (auto) 9.4 10 ^3/uL (1.6-8.6); Neutrophils % (auto) 82.7 % (37.0-80.0); Nucleated Red Blood Cells % 0.2 %; Platelet Count (auto) 237 10^3/uL (140-450); Red Cell Distribution Width 13.1 % (11.8-14.3); White Blood Cell 11.3 10^3/uL (4.4-10.8)
[2024-03-29] MEDS: HEPARIN DRIP/D5W 100UNITS/ML 250 ML IV SCH ×2 (06:52→21:43)
[2024-03-29] MEDS: PANTOPRAZOLE 40 MG TAB PO SCH (10:00)
[2024-03-29] MEDS: TAMSULOSIN HYDROCHLORIDE 0.4 MG CAP PO SCH (10:01)
[2024-03-29] MEDS: ASPirin-EC 81 mg tab PO SCH (10:01)
--- NOTE | 2024-03-29 11:29 | DVHPN2 ---
Progress Note - Dictate Date Seen: Mar 29, 2024 Medical Necessity Reason Pt with a Central, PICC or Fol: No vital signs Vital Sign Date Time Temp Pulse Resp B/P (MAP) Pulse Ox O2 Delivery O2 Flow Rate FiO2 03/29/24 10:00 96/59 03/29/24 09:00 98.1 75 16 97 98.1 03/29/24 08:00 Room Air* 0 21 Total Intake and Output 03/28/24 03/28/24 03/29/24 15:00 23:00 07:00 Intake Total 560 ml Output Total 400 ml Balance 160 ml medications Current Medications Medications Dose Ordered Sig/Prince Route Start Time Stop Time Status Last Admin Dose Admin Nitroglycerin 0.4 mg Q5MINP PRN SL 03/28/24 18:00 Morphine Sulfate 2 mg Q30M PRN IV 03/28/24 18:00 Aspirin 81 mg DAILY PO 03/29/24 10:00 03/29/24 10:01 81 MG Lisinopril 20 mg BID PO 03/28/24 22:00 03/28/24 23:25 20 MG Metoprolol Tartrate 25 mg TID PO 03/28/24 22:00 03/29/24 05:57 25 MG Tamsulosin HCl 0.4 mg DAILY PO 03/29/24 10:00 03/29/24 10:01 0.4 MG Atorvastatin Calcium 40 mg HS PO 03/28/24 22:00 03/28/24 23:24 40 MG Diagnostic Test (Pha) 1 strip ACHS 03/28/24 22:00 03/29/24 05:58 1 STRIP Insulin Human Regular HS SC 03/28/24 22:00 Insulin Human Regular AC SC 03/29/24 07:00 Dextrose 50 ml UD PRN IV 03/28/24 18:00 Sodium Chloride 1,000 ml @ 50 mls/hr Q20H IV 03/28/24 18:00 03/28/24 18:21 50 MLS/HR Pantoprazole Sodium 40 mg DAILY PO 03/29/24 10:00 03/29/24 10:00 40 MG Heparin Sodium/ Dextrose 250 ml @ 16 mls/hr [id number] IV 03/29/24 06:30 03/29/24 06:52 16 MLS/HR Hydromorphone HCl 0.5 mg Q4HPRN PRN IV 03/29/24 11:30 UNV Acetylcysteine 600 mg BID PO 03/29/24 22:00 03/31/24 21:59 UNV Sodium Bicarbonate 50 ml/ Sodium Chloride 1,050 ml @ 60 mls/hr [id number] IV 03/29/24 11:30 UNV objective General Appearance: alert, no distress HEENT: EOMI, PERRLA, normal external inspect of ears, no icterus, no nasal drainage Neck: no carotid bruit, no jugular venous distention (JVD), no lymphadenopathy Chest: normal thorax Respiratory: clear to auscultation, normal air movement Cardiovascular: regular rate and rhythm, no diastolic murmur, no jugular venous distention (JVD), no rub, no systolic murmur Abdominal: soft, no hepatomegaly, no mass, no splenomegaly, no tenderness Genitourinary: grossly normal external Musculoskeletal: no joint tenderness, no swelling Extremities: normal pulses, no calf tenderness, no clubbing, no cyanosis, no edema Skin: no bruising, no jaundice, no rash Neurological: alert, No focal deficit laboratory and microbiology Laboratory Tests 03/29/24 05:04 Test 03/29/24 05:04 Range/Units Serum Glucose 346 #H 74-106 mg/dL Problem List 1. Chest pain Monitor, cardiology consult, trend troponin 2. NSTEMI Monitor, cardiology consult, Heparin GTT 3. HLD Monitor 4. DM II w/ hyperglycemia Monitor, insulin SS Assessment/Plan Subjective Patient is awake and alert. Objective Patient is currently having echocardiogram done. Patient was found to be an NSTEMI. Patient was seen by Dr. Engel. Patient is currently on Heparin drip. Patient is a diabetic. Patient has worsening kidney function. Nephrology has been consulted. Plan Continue IV fluids. Renal ultrasound ordered. Continue Heparin drip. Monitor renal function. Possible plan for angiogram on Wednesday. Plan discussed with: Patient, Other ISA GRANT NP Mar 29, 2024 11:29
[2024-03-29] MEDS ORDERED: SODIUM BICARB 50mEq/50ml Vial 50 ML in SOD CHL 0.45% 1,000 ML IV SCH (11:30)
--- NOTE | 2024-03-29 11:33 | DVHPN2 ---
Progress Note - Dictate vital signs Vital Sign Date Time Temp Pulse Resp B/P (MAP) Pulse Ox O2 Delivery O2 Flow Rate FiO2 03/29/24 10:00 96/59 03/29/24 09:00 98.1 75 16 97 98.1 03/29/24 08:00 Room Air* 0 21 Total Intake and Output 03/28/24 03/28/24 03/29/24 15:00 23:00 07:00 Intake Total 560 ml Output Total 400 ml Balance 160 ml medications Current Medications Medications Dose Ordered Sig/Prince Route Start Time Stop Time Status Last Admin Dose Admin Nitroglycerin 0.4 mg Q5MINP PRN SL 03/28/24 18:00 Morphine Sulfate 2 mg Q30M PRN IV 03/28/24 18:00 Aspirin 81 mg DAILY PO 03/29/24 10:00 03/29/24 10:01 81 MG Lisinopril 20 mg BID PO 03/28/24 22:00 03/28/24 23:25 20 MG Metoprolol Tartrate 25 mg TID PO 03/28/24 22:00 03/29/24 05:57 25 MG Tamsulosin HCl 0.4 mg DAILY PO 03/29/24 10:00 03/29/24 10:01 0.4 MG Atorvastatin Calcium 40 mg HS PO 03/28/24 22:00 03/28/24 23:24 40 MG Diagnostic Test (Pha) 1 strip ACHS 03/28/24 22:00 03/29/24 05:58 1 STRIP Insulin Human Regular HS SC 03/28/24 22:00 Insulin Human Regular AC SC 03/29/24 07:00 Dextrose 50 ml UD PRN IV 03/28/24 18:00 Sodium Chloride 1,000 ml @ 50 mls/hr Q20H IV 03/28/24 18:00 03/28/24 18:21 50 MLS/HR Pantoprazole Sodium 40 mg DAILY PO 03/29/24 10:00 03/29/24 10:00 40 MG Heparin Sodium/ Dextrose 250 ml @ 16 mls/hr [id number] IV 03/29/24 06:30 03/29/24 06:52 16 MLS/HR Hydromorphone HCl 0.5 mg Q4HPRN PRN IV 03/29/24 11:30 UNV Acetylcysteine 600 mg BID PO 03/29/24 22:00 03/31/24 21:59 UNV Sodium Bicarbonate 50 ml/ Sodium Chloride 1,050 ml @ 60 mls/hr [id number] IV 03/29/24 11:30 UNV laboratory and microbiology Laboratory Tests 03/29/24 05:04 Test 03/29/24 05:04 Range/Units Serum Glucose 346 #H 74-106 mg/dL ISA GRANT AUTOMOTIVE SERVICE MANAGER Mar 29, 2024 11:33
--- NOTE | 2024-03-29 11:47 | ECG ---
[facility] Test Date: 2024-03-28 Test Time: 13:34:35 Pat Name: VALENTINE SMITH Department: ER Room: [facility]0T B Gender: M Spinner Cap Frame: KYLAH : 1970 Requested By: DASIA HAWKINS Order Number: [id number] Reading MD: Wm Banks Measurements Intervals [place] Rate: 86 P: 48 NC: 169 QRS: 61 QRSD: 120 T: 110 QT: 386 QTc: 462 Interpretive Statements Sinus rhythm Multiple ventricular premature complexes Nonspecific intraventricular conduction delay Abnormal inferior Q waves Nonspecific repol abnormality, lateral leads Electronically Signed On 03-29-2024 14:17:17 PST by Wm Banks Please click the below link to view image of tracing.
--- NOTE | 2024-03-29 12:20 | DVH ---
RENAL ULTRASOUND CLINICAL HISTORY: arf TECHNIQUE: Multiple ultrasound images of the kidneys and bladder were obtained. COMPARISON: None FINDINGS: The right kidney measures 9.9 cm in length. The left kidney measures 9.6 cm. There are tiny echogenic foci seen in the right kidney which may represent small calculi . There is no evidence of right hardik l hydronephrosis. There is left renal hydronephrosis. There is no sonographic evidence of left nephr olithiasis. The bladder grossly appears within normal limits with volume measuring 63 cc. IMPRESSION: 1. Left renal hydronephrosis. There is no sonographic evidence of left renal nephrolithiasis. 2. Tiny echogenic foci in the right kidney may represent a small nonobstructive calculi. HS:Y
[2024-03-29 12:32] LABS: Magnesium 2.1 mg/dL (1.6-2.6)
[2024-03-29 12:33] LABS: Phosphorus 3.8 mg/dL (2.4-5.1)
[2024-03-29] MEDS: SODIUM BICARB 50mEq/50ml Vial 50 ML in SOD CHL 0.45% 1,000 ML IV SCH (12:47)
--- NOTE | 2024-03-29 13:42 | DVHCONRES ---
Date Seen: Mar 29, 2024 Resident Creating Document: MAHAD MENDOZA RESIDENT Referring Physician jamal GUILLERMO Reason for Consultation CKD History of Present Illness Patient is 53-year-old male with past medical history of VT, hypertension, gout, hyperlipidemia, CHF, history of med use, surgical history of stent PTCA in 2019 19, cholecystectomy who presented to hospital with a chief complaint of chest pain which is substernal, presented at rest, not relieved by any factors. As per patient he was recently came to the hospital for ureteral colicky pain in we was discharged any came back again with chest pain hospital. Nephrology consultation was done for management of chronic kidney disease. With further evaluation patient's creatinine was trending high since beginning from 1.78- 2.51, BUN creatinine ratio 6.4, GFR trending down to 30. Urinalysis showed 2+ blood. At the time of evaluation patient was on heparin and possible with the plan left heart catheterization for NSTEMI. Patient denying any other complaints at this point. Past Medical History VT, hypertension, gout, hyperlipidemia, systolic CHF, diabetes mellitus Past Surgical History Stent PTCA in 2018, cholecystectomy Family History: Gout Allergies: Coded Allergies: Acetaminophen (Verified Allergy, Unknown, 09/17/18) Hydrocodone (Verified Allergy, Unknown, 09/17/18) Home Meds Active Scripts Oxycodone HCl (Oxycodone Hydrochloride) 5 Mg Tab, 5 MG PO TID PRN for 4 Days, #12 TAB Prov:DASIA HAWKINS MD 03/28/24 Tamsulosin Hcl (Flomax) 0.4 Mg Cap, 1 CAP PO DAILY for 14 Days, #30 CAP 11 Refills Prov:DASIA HAWKINS MD 03/28/24 Reported Medications Lisinopril (Lisinopril) 10 Mg Tab, 1 TAB PO DAILY 03/28/24 Cholecalciferol (Vitamin D3) 50,000 Unit Cap, 1 CAP PO QWEEKLY 03/28/24 Fenofibrate (Fenofibrate) 54 Mg Tab, 1 TAB PO DAILY 03/28/24 Furosemide (Furosemide) 40 Mg Tab, 1 TAB PO DAILY 03/28/24 Carvedilol (Carvedilol) 6.25 Mg Tab, 1 TAB PO BID 03/28/24 Metformin Hydrochloride (Metformin Hcl) 500 Mg Tab, 1 TAB PO BID 11/26/24 Glipizide (Glipizide) 10 Mg Tab, 1 TAB PO BID 03/28/24 Metoprolol Tartrate (Metoprolol Tartrate) 25 Mg Tab, 25 MG PO TID for 30 Days, MG 09/19/18 Clopidogrel Bisulfate (CLOPIDOGREL) 75 Mg Tab, 1 TAB PO DAILY, #90 TAB 1 Refill 09/19/18 Aspirin (Aspir-Low) 81 Mg Tab, 81 MG PO DAILY for 30 Days, MG 09/19/18 Nitroglycerin (NTROSTAT SUBLINGUAL) 0.4 Mg Sl, 0.4 MG SL PRN *MAY REPEAT EVERY 5 MINUTES X 3 TOTAL IF NO RELIEF, INITIATE ANALGESIC THERAPY. NOTIFY PHYSICIAN *Do not crush. 09/19/18 Atorvastatin Calcium (ATORVASTATIN CALCIUM) 40 Mg Tab, 1 TAB PO QPM, #90 TAB 3 Refills 09/19/18 Current Medications Current Medications Medications (Trade) Dose Ordered Sig/Prince Route PRN Reason Start Time Stop Time Status Last Admin Nitroglycerin (Ntrostat Sublingual) 0.4 mg Q5MINP PRN SL FOR CHEST PAIN 03/28/24 18:00 Morphine Sulfate 2 mg Q30M PRN IV FOR CHEST PAIN 03/28/24 18:00 Aspirin (Ecotrin Enteric Coated Tablet) 81 mg DAILY PO 03/29/24 10:00 03/29/24 10:01 Lisinopril (Zestril Tablet) 20 mg BID PO 03/28/24 22:00 03/28/24 23:25 Metoprolol Tartrate (Lopressor Tablet) 25 mg TID PO 03/28/24 22:00 03/29/24 05:57 Nitroglycerin (Ntrostat Sublingual) 0.4 mg PRN SL 03/28/24 18:00 03/28/24 18:19 DC Tamsulosin HCl (Flomax) 0.4 mg DAILY PO 03/29/24 10:00 03/29/24 10:01 Atorvastatin Calcium (Lipitor) 40 mg HS PO 03/28/24 22:00 03/28/24 23:24 Diagnostic Test (Pha) (Accu-Chek Comfort Curve T) 1 strip ACHS 03/28/24 22:00 03/29/24 12:24 Insulin Human Regular (InsuLIN R) HS SC 03/28/24 22:00 Insulin Human Regular (InsuLIN R) AC SC 03/29/24 07:00 Dextrose 50 ml UD PRN IV Blood Sugar LESS THAN 60 03/28/24 18:00 Sodium Chloride 1,000 ml @ 50 mls/hr Q20H IV 03/28/24 18:00 03/29/24 11:40 DC 03/28/24 18:21 Pantoprazole Sodium (Protonix Tablet) 40 mg DAILY PO 03/29/24 10:00 03/29/24 10:00 Heparin Sodium/ Dextrose 250 ml @ 16 mls/hr [id number] IV 03/29/24 06:30 03/29/24 06:52 Hydromorphone HCl (Dilaudid Injection) 0.5 mg Q4HPRN PRN IV SEVERE PAIN (7-10 PAIN SCALE) 03/29/24 11:30 Acetylcysteine (Mucomyst Po Soln (For Latisha)) 600 mg BID PO 03/29/24 22:00 03/31/24 21:59 Sodium Bicarbonate 50 ml/ Sodium Chloride 1,050 ml @ 60 mls/hr [id number] IV 03/29/24 11:30 03/29/24 11:40 DC Sodium Bicarbonate 50 ml/ Sodium Chloride 1,050 ml @ 100 mls/hr [id number] IV 03/29/24 11:45 03/29/24 12:47 Review of Systems Eyes: No Pain, No Vision change, No Conjunctivae inflammation, No Eyelid inflammation, No Other, No Redness ENT: No Ear pain, No Ear discharge, No Nose pain, No Nose discharge, No Nose congestion, No Mouth pain, No Mouth swelling, No Throat pain, No Throat swellin g, No Other Cardiovascular: No Chest Pain, No Palpitations, No Orthopnea, No Paroxysmal Noc. Dyspnea, No Edema, No Lt Headedness, No Other Respiratory: No Cough, No Dry, No Shortness of breath, No SOB with excertion, No Wheezing, No Hemoptysis, No Pleuritic Pain, No Sputum, No Other Gastrointestinal: No Nausea, No Vomiting, No Abdominal Pain, No Diarrhea, No Constipation, No Melena, No Hematochezia, No Other Genitourinary: No Dysuria, No Frequency, No Incontinence, No Hematuria, No Retention, No Other Musculoskeletal: No other, No neck pain, No shoulder pain, No arm pain, No back pain, No hand pain, No leg pain, No foot pain Skin: No Rash, No Lesions, No Jaundice, No Bruising, No Other Vital Signs Vital Signs Date Time Temp Pulse Resp B/P (MAP) Pulse Ox O2 Delivery O2 Flow Rate FiO2 03/29/24 10:00 96/59 03/29/24 09:00 98.1 75 16 97 98.1 03/29/24 08:00 Room Air* 0 21 Physical Exam General Appearance: Cooperative. Well developed. Well nourished. NAD Head Exam: Normal inspection Neck Exam: Normal inspection. Non-tender. Normal alignment Pulmonary/Respiratory: Chest non-tender. Clear bilateral breath sounds Cardiovascular/Chest: Regular rate and rhythm. No murmurs. No JVD. Peripheral Pulses: 2+ Radial (R). 2+ Radial (L). 2+ Pedal (R). 2+ Pedal (L) Abdominal Exam: Normal bowel sounds. Soft. Nontender. No hepatospenomegaly. No masses Ankle Exam: Negative ankle edema Lower extremities: Negative lower extremity edema Neuro/Mental Status: A&O x4. Coherent Thoughts/Psych: Normal thought pattern. Appropriate mood and affect. Good judgement and insight Appearance: In no acute distress Skin Exam: Normal inspection. Normal color. Warm. Dry Labs/Diagnostic Data Labs Test 03/29/24 13:02 03/29/24 11:15 03/29/24 05:04 03/28/24 14:28 Range/Units POC Glucose 345 H 70-106 mg/dl White Blood Count 11.3 H 4.4-10.8 10^3/uL Red Blood Count 4.40 L 4.5-5.90 10^6/uL Hemoglobin 14.1 13.5-17.5 g/dL Hematocrit 40.9 L 41.0-53.0 % Mean Corpuscular Volume 93.1 80.0-100.0 fL Mean Corpuscular Hemoglobin 32.1 H 28.0-32.0 pg Mean Corpuscular Hemoglobin Concent 34.5 32.0-36.0 g/dL Red Cell Distribution Width 13.1 11.8-14.3 % Platelet Count 237 140-450 10^3/uL Mean Platelet Volume 8.5 6.9-10.8 fL Neutrophils (%) (Auto) 82.7 H 37.0-80.0 % Lymphocytes (%) (Auto) 10.7 10.0-50.0 % Monocytes (%) (Auto) 5.1 0.0-12.0 % Eosinophils (%) (Auto) 0.8 0.0-7.0 % Basophils (%) (Auto) 0.7 0.0-2.0 % Neutrophils # (Auto) 9.4 H 1.6-8.6 10 ^3/uL Lymphocytes # (Auto) 1.2 0.4-5.4 10 ^3/uL Monocytes # (Auto) 0.6 0-1.3 10 ^3/uL Eosinophils # (Auto) 0.1 0-0.8 10 ^3/uL Basophils # (Auto) 0.1 0-0.2 10 ^3/uL Nucleated Red Blood Cells 0.2 % Sodium Level 133 L 136-145 mmol/L Potassium Level 4.2 3.5-5.1 mmol/L Chloride Level 104 98-107 mmol/L Carbon Dioxide Level 18 L 20-31 mmol/L Anion Gap 11 5-15 Blood Urea Nitrogen 16 9-23 mg/dL Creatinine 2.51 H 0.700-1.30 mg/dL Glomerular Filtration Rate Calc 30 >90 mL/min BUN/Creatinine Ratio 6.4 L 10.0-20.0 Serum Glucose 346 #H 74-106 mg/dL Uric Acid 13.0 H 3.7-9.2 mg/dL Calcium Level 9.3 8.7-10.4 mg/dL Phosphorus Level 3.8 2.4-5.1 mg/dL Magnesium Level 2.1 1.6-2.6 mg/dL Total Bilirubin 0.6 0.2-1.0 mg/dL Aspartate Amino Transferase (AST) 84 H 13-40 U/L Alanine Aminotransferase (ALT) 34 7-40 U/L Alkaline Phosphatase 109 46-116 U/L Total Protein 6.1 5.7-8.2 g/dL Albumin 3.8 3.2-4.8 g/dL Troponin I High Sensitivity 549 *H </=54 ng/L Assessment CHAVA on superimposed CKD 3 possibly hemodynamically mediated DM type II Hyperglycemia Left renal hydronephrosis Right small nonobstructive calculi Hematuria likely due to above Gout: Elevated uric acid level at 13 NSTEMI Plan/recommendation Dr Smith -continue half NS bicarb drip at 100 mL/hour for urinary alkalinization given high likely of uric acid stones. -recommend tight blood pressure control, recommend allopurinol for gout control, possible worsening kidney function due to elevated uric acid -pending urine sodium, urine creatinine, urine protein creatinine ratio, phosphate, magnesium, 25 vitamin-D and PTH level -kidney ultrasound showed left-sided renal hydronephrosis -Insulin SS -continue to monitor kidney function -strict I&O, renal diet -avoid nephrotoxic drugs -recommend outpatient follow with Dr. Smith clinic, two weeks after discharge for CKD f/u -cardiology consultation -Urology consultation -rest of the plan per primary care team. Patient seen and examined by myself in rounds today with the medicine resident, I agree with the assessment and plan as documented in the consult note Plan discussed with: Patient JAMISONMELIMAHAD RESIDENT Mar 29, 2024 13:42 ELMA SMITH MD Mar 29, 2024 20:31
[2024-03-29 14:23] LABS: INR 0.99 (0.9-1.15); Partial Thromboplastin Time 51.8 SEC (24.5-34.5); Prothrombin Time 10.5 sec (9.3-11.8)
[2024-03-29 15:22] LABS: Protein, Urine 29.9 mg/dL (1-14)
[2024-03-29 15:25] LABS: Creatinine, Urine 138.15 mg/dL (30.0-125.0); Urine Protein/Creatinine Ratio 0.22
[2024-03-29] MEDS: HYDROmorphone HCL 2 MG/ML VL/or syr IV PRN (15:48)
[2024-03-29 20:09] LABS: INR 0.97 (0.9-1.15); Prothrombin Time 10.3 sec (9.3-11.8)
[2024-03-29] MEDS: NITROGLYCERIN 0.4 MG SL TAB SL PRN (20:45)
--- NOTE | 2024-03-29 20:49 | DVHINCON2 ---
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 Patient was just seen and discharged from [facility] 03/28 morning with a diagnosis of a Ureteral Colic. Patient reports that when he got home from [facility] he began to have sternal chest pressure and based on his previous OH in the past he decided to call 911. Patient describes his pain sensation as pressure. Patient was also hypertensive according to EMS with a BP systolic of 205. Blood sugar reading was at 462. Troponin 250 > 251 > 549. Patient started on heparin drip. Chest x-ray showed NAD. Patient was admitted to the hospital. I am asked to consult on this patient. Family History: Gout Allergies: Coded Allergies: Acetaminophen (Verified Allergy, Unknown, 09/17/18) Hydrocodone (Verified Allergy, Unknown, 09/17/18) Home Meds Active Scripts Oxycodone HCl (Oxycodone Hydrochloride) 5 Mg Tab, 5 MG PO TID PRN for 4 Days, #12 TAB Prov:DASIA HAWKINS MD 03/28/24 Tamsulosin Hcl (Flomax) 0.4 Mg Cap, 1 CAP PO DAILY for 14 Days, #30 CAP 11 Refills Prov:DASIA HAWKINS MD 03/28/24 Reported Medications Lisinopril (Lisinopril) 10 Mg Tab, 1 TAB PO DAILY 03/28/24 Cholecalciferol (Vitamin D3) 50,000 Unit Cap, 1 CAP PO QWEEKLY 03/28/24 Fenofibrate (Fenofibrate) 54 Mg Tab, 1 TAB PO DAILY 03/28/24 Furosemide (Furosemide) 40 Mg Tab, 1 TAB PO DAILY 03/28/24 Carvedilol (Carvedilol) 6.25 Mg Tab, 1 TAB PO BID 03/28/24 Metformin Hydrochloride (Metformin Hcl) 500 Mg Tab, 1 TAB PO BID 03/28/24 Glipizide (Glipizide) 10 Mg Tab, 1 TAB PO BID 03/28/24 Metoprolol Tartrate (Metoprolol Tartrate) 25 Mg Tab, 25 MG PO TID for 30 Days, MG 09/19/18 Clopidogrel Bisulfate (CLOPIDOGREL) 75 Mg Tab, 1 TAB PO DAILY, #90 TAB 1 Refill 09/19/18 Aspirin (Aspir-Low) 81 Mg Tab, 81 MG PO DAILY for 30 Days, MG 09/19/18 Nitroglycerin (NTROSTAT SUBLINGUAL) 0.4 Mg Sl, 0.4 MG SL PRN *MAY REPEAT EVERY 5 MINUTES X 3 TOTAL IF NO RELIEF, INITIATE ANALGESIC THERAPY. NOTIFY PHYSICIAN *Do not crush. 09/19/18 Atorvastatin Calcium (ATORVASTATIN CALCIUM) 40 Mg Tab, 1 TAB PO QPM, #90 TAB 3 Refills 09/19/18 Current Medications Current Medications Medications (Trade) Dose Ordered Sig/Prince Route PRN Reason Start Time Stop Time Status Last Admin Nitroglycerin (Ntrostat Sublingual) 0.4 mg Q5MINP PRN SL FOR CHEST PAIN 03/28/24 18:00 Morphine Sulfate 2 mg Q30M PRN IV FOR CHEST PAIN 03/28/24 18:00 Aspirin (Ecotrin Enteric Coated Tablet) 81 mg DAILY PO 03/29/24 10:00 03/29/24 10:01 Lisinopril (Zestril Tablet) 20 mg BID PO 03/28/24 22:00 03/28/24 23:25 Metoprolol Tartrate (Lopressor Tablet) 25 mg TID PO 03/28/24 22:00 03/29/24 05:57 Nitroglycerin (Ntrostat Sublingual) 0.4 mg PRN SL 03/28/24 18:00 03/28/24 18:19 DC Tamsulosin HCl (Flomax) 0.4 mg DAILY PO 03/29/24 10:00 03/29/24 10:01 Atorvastatin Calcium (Lipitor) 40 mg HS PO 03/28/24 22:00 03/28/24 23:24 Diagnostic Test (Pha) (Accu-Chek Comfort Curve T) 1 strip ACHS 03/28/24 22:00 03/29/24 12:24 Insulin Human Regular (InsuLIN R) HS SC 03/28/24 22:00 Insulin Human Regular (InsuLIN R) AC SC 03/29/24 07:00 Dextrose 50 ml UD PRN IV Blood Sugar LESS THAN 60 03/28/24 18:00 Sodium Chloride 1,000 ml @ 50 mls/hr Q20H IV 03/28/24 18:00 03/29/24 11:40 DC 03/28/24 18:21 Pantoprazole Sodium (Protonix Tablet) 40 mg DAILY PO 03/29/24 10:00 03/29/24 10:00 Heparin Sodium/ Dextrose 250 ml @ 16 mls/hr [id number] IV 03/29/24 06:30 03/29/24 06:52 Hydromorphone HCl (Dilaudid Injection) 0.5 mg Q4HPRN PRN IV SEVERE PAIN (7-10 PAIN SCALE) 03/29/24 11:30 Acetylcysteine (Mucomyst Po Soln (For Latisha)) 600 mg BID PO 03/29/24 22:00 03/31/24 21:59 Sodium Bicarbonate 50 ml/ Sodium Chloride 1,050 ml @ 60 mls/hr [id number] IV 03/29/24 11:30 03/29/24 11:40 DC Sodium Bicarbonate 50 ml/ Sodium Chloride 1,050 ml @ 100 mls/hr [id number] IV 03/29/24 11:45 03/29/24 12:47 Review of Systems Constitutional: denies: chills, diaphoresis, fatigue, fever, malaise, sweats, weakness, others EENTM: denies: blurred vision, double vision, ear bleeding, ear discharge, ear drainage, ear pain, ear ringing, eye pain, eye redness, hearing loss, mouth pain, mouth swelling, nasal discharge, nose bleeding, nose congestion, nose pain, photophobia, tearing, throat pain, throat swelling, voice changes, others Respiratory: denies: cough, hemoptysis, orthopnea, SOB at rest, shortness of breath, SOB with excertion, stridor, wheezing, others Cardiovascular: reports: chest pain; denies: dizzy spells, diaphoresis, Dyspnea on exertion, edema, irregular heart beat, left arm pain, lightheadedness, palpitations, PND, syncope, others Gastrointestinal: denies: abdomen distended, abdominal pain, blood streaked bowels, constipated, diarrhea, dysphagia, difficulty swallowing, hematemesis, melena, nausea, poor appetite, poor fluid intake, rectal bleeding, rectal pain, vomiting, others Genitourinary: denies: burning, dysuria, flank pain, frequency, hematuria, incontinence, penile discharge, penile sore, pain, testicle pain, testicle swelling, urgency, others Neurological: denies: dizziness, fainting, headache, left sided numbness, left sided weakness, numbness, paresthesia, pre-existing deficit, right sided numbness, right sided weakness, seizure, speech problems, tingling, tremors, weakness, others Musculoskeletal: denies: back pain, gout, joint pain, joint swelling, muscle pain, muscle stiffness, neck pain, others Integumetry: denies: bruises, change in color, change in hair/nails, dryness, laceration, lesions, lumps, rash, wounds, others Allergic/Immunocompromised: denies: Difficulty Healing, Frequent Infections, Hives, Itching, others Hematologic/Lymphatic: denies: anemia, blood clots, easy bleeding, easy bruising, swollen glands, others Endocrine: denies: excessive hunger, excessive sweating, excessive thirst, excessive urination, flushing, intolerance to cold, intolerance to heat, u nexplained weight gain, unexplained weight loss, others Psychiatric: denies: anxiety, bipolar disorder, depression, hopeless, panic disorder, schizophrenia, sleepless, suicidal, others All Other Systems: Reviewed and Negative Vital Signs Vital Signs Date Time Temp Pulse Resp B/P (MAP) Pulse Ox O2 Delivery O2 Flow Rate FiO2 03/29/24 13:33 85 95/58 03/29/24 13:00 97.8 16 92 97.8 03/29/24 08:00 Room Air* 0 21 Physical Exam GENERAL: Awake, alert, oriented. LUNGS: Clear. CARDIOVASCULAR: Heart sounds are good. ABDOMEN: Soft. Labs/Diagnostic Data Labs Test 03/29/24 13:02 03/29/24 11:15 03/29/24 05:04 03/28/24 14:28 Range/Units POC Glucose 345 H 70-106 mg/dl White Blood Count 11.3 H 4.4-10.8 10^3/uL Red Blood Count 4.40 L 4.5-5.90 10^6/uL Hemoglobin 14.1 13.5-17.5 g/dL Hematocrit 40.9 L 41.0-53.0 % Mean Corpuscular Volume 93.1 80.0-100.0 fL Mean Corpuscular Hemoglobin 32.1 H 28.0-32.0 pg Mean Corpuscular Hemoglobin Concent 34.5 32.0-36.0 g/dL Red Cell Distribution Width 13.1 11.8-14.3 % Platelet Count 237 140-450 10^3/uL Mean Platelet Volume 8.5 6.9-10.8 fL Neutrophils (%) (Auto) 82.7 H 37.0-80.0 % Lymphocytes (%) (Auto) 10.7 10.0-50.0 % Monocytes (%) (Auto) 5.1 0.0-12.0 % Eosinophils (%) (Auto) 0.8 0.0-7.0 % Basophils (%) (Auto) 0.7 0.0-2.0 % Neutrophils # (Auto) 9.4 H 1.6-8.6 10 ^3/uL Lymphocytes # (Auto) 1.2 0.4-5.4 10 ^3/uL Monocytes # (Auto) 0.6 0-1.3 10 ^3/uL Eosinophils # (Auto) 0.1 0-0.8 10 ^3/uL Basophils # (Auto) 0.1 0-0.2 10 ^3/uL Nucleated Red Blood Cells 0.2 % Sodium Level 133 L 136-145 mmol/L Potassium Level 4.2 3.5-5.1 mmol/L Chloride Level 104 98-107 mmol/L Carbon Dioxide Level 18 L 20-31 mmol/L Anion Gap 11 5-15 Blood Urea Nitrogen 16 9-23 mg/dL Creatinine 2.51 H 0.700-1.30 mg/dL Glomerular Filtration Rate Calc 30 >90 mL/min BUN/Creatinine Ratio 6.4 L 10.0-20.0 Serum Glucose 346 #H 74-106 mg/dL Uric Acid 13.0 H 3.7-9.2 mg/dL Calcium Level 9.3 8.7-10.4 mg/dL Phosphorus Level 3.8 2.4-5.1 mg/dL Magnesium Level 2.1 1.6-2.6 mg/dL Total Bilirubin 0.6 0.2-1.0 mg/dL Aspartate Amino Transferase (AST) 84 H 13-40 U/L Alanine Aminotransferase (ALT) 34 7-40 U/L Alkaline Phosphatase 109 46-116 U/L Total Protein 6.1 5.7-8.2 g/dL Albumin 3.8 3.2-4.8 g/dL Troponin I High Sensitivity 549 *H </=54 ng/L Assessment NSTEMI. Chest pain. HLD. DM II w/ hyperglycemia. Plan/Recommendation I agree with your ongoing assessment and care of plan. Dilaudid for pain management. Heparin drip per pharmacy protocol. Aspirin, Lipitor, Metoprolol. Nitro SL. Lisinopril. GI prophylactics. Additional plan as per the hospital course. A total of 45 minutes was spent reviewing the patient record, examining the patient, making a diagnostic and therapeutic plan, discussing this plan with medical personnel, following up on diagnostic studies and following the patient for clinical stability excluding any and all procedures. At least 50% of this time was spent in direct, [id number] contact. Plan discussed with: Patient VALERIE MCBRIDE MD Mar 29, 2024 14:28
[2024-03-29] MEDS: ACETYLCYSTEINE ORAL for CIN 20%(200MG/ML) 4ML PO SCH (21:39)
[2024-03-30] VITALS (9 sets, daily range): BP systolic 124–137; BP diastolic 67–87; PULSE 75–99; RESP 18–20; TEMP 97.9–98.8; O2SAT 90–100
[2024-03-30 03:15] LABS: Basophils # (auto) 0.1 10 ^3/uL (0-0.2); Basophils % (auto) 0.8 % (0.0-2.0); Eosinophils # (auto) 0.3 10 ^3/uL (0-0.8); Eosinophils % (auto) 3.5 % (0.0-7.0); Hematocrit 38.4 % (41.0-53.0); Lymphocytes # (auto) 2.3 10 ^3/uL (0.4-5.4); Lymphocytes % (auto) 23.7 % (10.0-50.0); Mean Corpuscular Hemoglobin 31.5 pg (28.0-32.0); Mean Corpuscular Volume 92.8 fL (80.0-100.0); Monocytes # (auto) 0.7 10 ^3/uL (0-1.3); Monocytes % (auto) 6.8 % (0.0-12.0); Neutrophils # (auto) 6.5 10 ^3/uL (1.6-8.6); Neutrophils % (auto) 65.2 % (37.0-80.0); Nucleated Red Blood Cells % 0.1 %; Platelet Count (auto) 262 10^3/uL (140-450); Red Blood Cells 4.13 10^6/uL (4.5-5.90); Red Cell Distribution Width 13.3 % (11.8-14.3); White Blood Cell 9.9 10^3/uL (4.4-10.8)
[2024-03-30 03:32] LABS: Chloride 104 mmol/L (98-107); Potassium 4.3 mmol/L (3.5-5.1)
[2024-03-30 03:33] LABS: Anion Gap 12 (5-15)
[2024-03-30 03:38] LABS: BUN/Creatinine Ratio 7.8 (10.0-20.0)
[2024-03-30 04:00] LABS: Blood Urea Nitrogen 23 mg/dL (9-23); Carbon Dioxide 19 mmol/L (20-31); Glucose 299 mg/dL (74-106); INR 0.99 (0.9-1.15); Partial Thromboplastin Time 62.3 SEC (24.5-34.5); Prothrombin Time 10.5 sec (9.3-11.8); Sodium 135 mmol/L (136-145)
--- NOTE | 2024-03-30 06:23 | DVHPN2 ---
Progress Note - Dictate Date Seen: Mar 30, 2024 Medical Necessity Reason Pt with a Central, PICC or Fol: No vital signs Vital Sign Date Time Temp Pulse Resp B/P (MAP) Pulse Ox O2 Delivery O2 Flow Rate FiO2 03/30/24 05:00 98.5 88 19 134/82 (99) 92 98.5 03/29/24 20:00 Room Air* 0 21 Total Intake and Output 03/29/24 03/29/24 03/30/24 15:00 23:00 07:00 Intake Total 680 ml 1182 ml Balance 680 ml 1182 ml medications Current Medications Medications Dose Ordered Sig/Prince Route Start Time Stop Time Status Last Admin Dose Admin Nitroglycerin 0.4 mg Q5MINP PRN SL 03/28/24 18:00 03/29/24 20:45 0.4 MG Morphine Sulfate 2 mg Q30M PRN IV 03/28/24 18:00 Aspirin 81 mg DAILY PO 03/29/24 10:00 03/29/24 10:01 81 MG Lisinopril 20 mg BID PO 03/28/24 22:00 03/29/24 21:35 20 MG Metoprolol Tartrate 25 mg TID PO 03/28/24 22:00 03/29/24 21:34 25 MG Tamsulosin HCl 0.4 mg DAILY PO 03/29/24 10:00 03/29/24 10:01 0.4 MG Atorvastatin Calcium 40 mg HS PO 03/28/24 22:00 03/29/24 21:34 40 MG Diagnostic Test (Pha) 1 strip ACHS 03/28/24 22:00 03/30/24 06:07 1 STRIP Insulin Human Regular HS SC 03/28/24 22:00 03/29/24 22:32 6 UNITS Insulin Human Regular AC SC 03/29/24 07:00 03/29/24 17:45 15 UNITS Dextrose 50 ml UD PRN IV 03/28/24 18:00 Pantoprazole Sodium 40 mg DAILY PO 03/29/24 10:00 03/29/24 10:00 40 MG Hydromorphone HCl 0.5 mg Q4HPRN PRN IV 03/29/24 11:30 03/30/24 02:24 0.5 MG Acetylcysteine 600 mg BID PO 03/29/24 22:00 03/31/24 21:59 03/29/24 21:39 600 MG Sodium Bicarbonate 50 ml/ Sodium Chloride 1,050 ml @ 100 mls/hr [id number] IV 03/29/24 11:45 03/29/24 21:38 100 MLS/HR Heparin Sodium/ Dextrose 250 ml @ 18 mls/hr [id number] IV 03/29/24 21:15 03/29/24 21:43 18 MLS/HR objective General Appearance: alert, no distress HEENT: EOMI, PERRLA, normal external inspect of ears, no icterus, no nasal drainage Neck: no carotid bruit, no jugular venous distention (JVD), no lymphadenopathy Chest: normal thorax Respiratory: clear to auscultation, normal air movement Cardiovascular: regular rate and rhythm, no diastolic murmur, no jugular venous distention (JVD), no rub, no systolic murmur Abdominal: soft, no hepatomegaly, no mass, no splenomegaly, no tenderness Genitourinary: grossly normal external Musculoskeletal: no joint tenderness, no swelling Extremities: normal pulses, no calf tenderness, no clubbing, no cyanosis, no edema Skin: no bruising, no jaundice, no rash Neurological: alert, No focal deficit laboratory and microbiology Laboratory Tests 03/30/24 02:53 Test 03/30/24 02:53 Range/Units Serum Glucose 299 H 74-106 mg/dL Problem List 1. Chest pain Monitor, cardiology consult, trend troponin 2. NSTEMI Monitor, cardiology consult, Heparin GTT 3. HLD Monitor 4. DM II w/ hyperglycemia Monitor, insulin SS Assessment/Plan Subjective: Patient is awake and alert. Objective: Patient was educated on why he could not have oral diabetic medications at this time. Patient has worsening creatinine function. Creatinine is 2.93. Patient was admitted for chest pain and was found to be an NSTEMI. Patient was seen by cardiology. Patient is currently on a heparin drip. Plan: Continue sodium bicarb drip, nephrology consult, monitor renal function, and monitor daily labs. Plan discussed with: Patient, Other ISA GRANT NP Mar 30, 2024 06:23
[2024-03-30 11:12] LABS: Prothrombin Time 10.6 sec (9.3-11.8)
[2024-03-30 11:14] LABS: Partial Thromboplastin Time 73.2 SEC (24.5-34.5)
--- NOTE | 2024-03-30 11:42 | DVHPN2 ---
Progress Note - Dictate Date Seen: Mar 30, 2024 Has the PT tested + for MRSA If YES, has PT been informed?: No Medical Necessity Reason Pt with a Central, PICC or Fol: No Subjective Asked to take over nephrology care vital signs Vital Sign Date Time Temp Pulse Resp B/P (MAP) Pulse Ox O2 Delivery O2 Flow Rate FiO2 03/30/24 09:23 81 18 105/76 03/30/24 08:45 98.7 100 98.7 03/30/24 08:30 Room Air* 0 21 Total Intake and Output 03/29/24 03/29/24 03/30/24 15:00 23:00 07:00 Intake Total 680 ml 1182 ml Balance 680 ml 1182 ml medications Current Medications Medications Dose Ordered Sig/Prince Route Start Time Stop Time Status Last Admin Dose Admin Nitroglycerin 0.4 mg Q5MINP PRN SL 03/28/24 18:00 03/29/24 20:45 0.4 MG Morphine Sulfate 2 mg Q30M PRN IV 03/28/24 18:00 Aspirin 81 mg DAILY PO 03/29/24 10:00 03/30/24 08:39 81 MG Metoprolol Tartrate 25 mg TID PO 03/28/24 22:00 03/30/24 06:44 25 MG Tamsulosin HCl 0.4 mg DAILY PO 03/29/24 10:00 03/30/24 08:39 0.4 MG Atorvastatin Calcium 40 mg HS PO 03/28/24 22:00 03/29/24 21:34 40 MG Diagnostic Test (Pha) 1 strip ACHS 03/28/24 22:00 03/30/24 06:07 1 STRIP Insulin Human Regular HS SC 03/28/24 22:00 03/29/24 22:32 6 UNITS Insulin Human Regular AC SC 03/29/24 07:00 03/29/24 17:45 15 UNITS Dextrose 50 ml UD PRN IV 03/28/24 18:00 Pantoprazole Sodium 40 mg DAILY PO 03/29/24 10:00 03/30/24 08:39 40 MG Hydromorphone HCl 0.5 mg Q4HPRN PRN IV 03/29/24 11:30 03/30/24 08:56 0.5 MG Acetylcysteine 600 mg BID PO 03/29/24 22:00 03/31/24 21:59 03/30/24 08:49 600 MG Sodium Bicarbonate 50 ml/ Sodium Chloride 1,050 ml @ 100 mls/hr [id number] IV 03/29/24 11:45 03/30/24 08:42 100 MLS/HR Heparin Sodium/ Dextrose 250 ml @ 18 mls/hr [id number] IV 03/29/24 21:15 03/29/24 21:43 18 MLS/HR objective A & O x 3 NAD Lungs CTA CV RR, no pericardial rub Abdomen soft, NT No edema laboratory and microbiology Laboratory Tests 03/30/24 02:53 Test 03/30/24 02:53 Range/Units Serum Glucose 299 H 74-106 mg/dL Problem List 1. CHAVA 2. Obsatructive uropathy, Left hydronephrosis, but renal size is normal , and there si no evidence of obstructing stone, might have passed 3. Uncontrolled HTN on presentation 4. CKD3b 5. Diabetic nephropathy 6. Metabolic acidosis 7. Risk of contrast-induced nephropathy is very high, I would not recommend coronary angiogram in this setting unless it is absolutely necessary Uncontrolled DM2 IVF with isotonic saline Stop bicarb drip IV Bumex x 1 Daily BMP Urology consult Stop ACEI Mucomyst PO is of no value for CHAVA prophylaxis. Plan discussed with: Other SRUTHI SERRANO MD Mar 30, 2024 11:42
[2024-03-30] MEDS: SODIUM CHLORIDE 0.9% 1,000 ML IV ONE (13:42)
[2024-03-30 16:28] LABS: INR 0.99 (0.9-1.15); Prothrombin Time 10.5 sec (9.3-11.8)
--- NOTE | 2024-03-30 20:59 | DVHPN2 ---
Progress Note - Dictate Date Seen: Mar 30, 2024 Has the PT tested + for MRSA If YES, has PT been informed?: No Medical Necessity Reason Pt with a Central, PICC or Fol: No Subjective Patient was seen and evaluated in follow up. Patient is complaining of 8/10 left flank pain. Patient is refusing insulin. Patient remains on heparin drip. 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 vital signs Vital Sign Date Time Temp Pulse Resp B/P (MAP) Pulse Ox O2 Delivery O2 Flow Rate FiO2 03/30/24 09:23 81 18 105/76 03/30/24 08:45 98.7 100 98.7 03/30/24 08:30 Room Air* 0 21 Total Intake and Output 03/29/24 03/29/24 03/30/24 15:00 23:00 07:00 Intake Total 680 ml 1182 ml Balance 680 ml 1182 ml medications Current Medications Medications Dose Ordered Sig/Prince Route Start Time Stop Time Status Last Admin Dose Admin Nitroglycerin 0.4 mg Q5MINP PRN SL 03/28/24 18:00 03/29/24 20:45 0.4 MG Morphine Sulfate 2 mg Q30M PRN IV 03/28/24 18:00 Aspirin 81 mg DAILY PO 03/29/24 10:00 03/30/24 08:39 81 MG Metoprolol Tartrate 25 mg TID PO 03/28/24 22:00 03/30/24 06:44 25 MG Tamsulosin HCl 0.4 mg DAILY PO 03/29/24 10:00 03/30/24 08:39 0.4 MG Atorvastatin Calcium 40 mg HS PO 03/28/24 22:00 03/29/24 21:34 40 MG Diagnostic Test (Pha) 1 strip ACHS 03/28/24 22:00 03/30/24 06:07 1 STRIP Insulin Human Regular HS SC 03/28/24 22:00 03/29/24 22:32 6 UNITS Insulin Human Regular AC SC 03/29/24 07:00 03/29/24 17:45 15 UNITS Dextrose 50 ml UD PRN IV 03/28/24 18:00 Pantoprazole Sodium 40 mg DAILY PO 03/29/24 10:00 03/30/24 08:39 40 MG Hydromorphone HCl 0.5 mg Q4HPRN PRN IV 03/29/24 11:30 03/30/24 08:56 0.5 MG Heparin Sodium/ Dextrose 250 ml @ 18 mls/hr [id number] IV 03/29/24 21:15 03/29/24 21:43 18 MLS/HR objective GENERAL: Awake, alert, oriented. LUNGS: Clear. CARDIOVASCULAR: Heart sounds are good. ABDOMEN: Soft. laboratory and microbiology Laboratory Tests 03/30/24 02:53 Test 03/30/24 02:53 Range/Units Serum Glucose 299 H 74-106 mg/dL Problem List NSTEMI. Chest pain. HLD. DM II w/ hyperglycemia. Assessment/Plan Continued all current supportive medical care. Dilaudid for pain management. Heparin drip per pharmacy protocol. Aspirin, Lipitor, Metoprolol. Nitro SL. Lisinopril. GI prophylactics. Additional plan as per the hospital course. Plan discussed with: Patient VALERIE MCBRIDE MD Mar 30, 2024 11:54
[2024-03-31] VITALS (8 sets, daily range): BP systolic 129–160; BP diastolic 78–94; PULSE 60–88; RESP 18–20; TEMP 97.7–99; O2SAT 91–99
[2024-03-31 07:00] LABS: Chloride 105 mmol/L (98-107); Potassium 4.1 mmol/L (3.5-5.1); Sodium 136 mmol/L (136-145)
[2024-03-31 07:01] LABS: Anion Gap 14 (5-15)
[2024-03-31 07:02] LABS: Calcium 9.6 mg/dL (8.7-10.4)
[2024-03-31 07:07] LABS: Blood Urea Nitrogen 22 mg/dL (9-23)
[2024-03-31 07:08] LABS: Carbon Dioxide 17 mmol/L (20-31); Glucose 266 mg/dL (74-106)
[2024-03-31 07:15] LABS: INR 0.97 (0.9-1.15); Partial Thromboplastin Time 50.7 SEC (24.5-34.5); Prothrombin Time 10.3 sec (9.3-11.8)
[2024-03-31] MEDS: ALPRAZolam 0.5 MG TAB PO PRN (11:30)
--- NOTE | 2024-03-31 12:12 | DVHPN2 ---
Progress Note - Dictate Date Seen: Mar 31, 2024 Has the PT tested + for MRSA If YES, has PT been informed?: No Medical Necessity Reason Pt with a Central, PICC or Fol: No vital signs Vital Sign Date Time Temp Pulse Resp B/P (MAP) Pulse Ox O2 Delivery O2 Flow Rate FiO2 03/31/24 09:00 97.8 63 19 140/89 (106) 91 97.8 03/30/24 20:00 Room Air* 0 21 Total Intake and Output 03/30/24 03/30/24 03/31/24 14:59 22:59 06:59 Intake Total 1250 ml 2072.25 ml 0 ml Output Total 450 ml 300 ml Balance 800 ml 2072.25 ml -300 ml medications Current Medications Medications Dose Ordered Sig/Prince Route Start Time Stop Time Status Last Admin Dose Admin Nitroglycerin 0.4 mg Q5MINP PRN SL 03/28/24 18:00 03/31/24 03:47 0.4 MG Morphine Sulfate 2 mg Q30M PRN IV 03/28/24 18:00 Aspirin 81 mg DAILY PO 03/29/24 10:00 03/30/24 08:39 81 MG Metoprolol Tartrate 25 mg TID PO 03/28/24 22:00 03/31/24 06:24 25 MG Tamsulosin HCl 0.4 mg DAILY PO 03/29/24 10:00 03/31/24 09:19 0.4 MG Atorvastatin Calcium 40 mg HS PO 03/28/24 22:00 03/30/24 22:28 40 MG Diagnostic Test (Pha) 1 strip ACHS 03/28/24 22:00 03/31/24 11:32 1 STRIP Insulin Human Regular HS SC 03/28/24 22:00 03/30/24 22:52 6 UNITS Insulin Human Regular AC SC 03/29/24 07:00 03/31/24 06:10 9 UNITS Dextrose 50 ml UD PRN IV 03/28/24 18:00 Pantoprazole Sodium 40 mg DAILY PO 03/29/24 10:00 03/31/24 09:19 40 MG Hydromorphone HCl 0.5 mg Q4HPRN PRN IV 03/29/24 11:30 03/30/24 20:45 0.5 MG Heparin Sodium/ Dextrose 250 ml @ 18 mls/hr [id number] IV 03/29/24 21:15 03/31/24 01:13 18 MLS/HR Alprazolam 0.5 mg Q6HP PRN PO 03/31/24 10:40 03/31/24 11:30 0.5 MG objective General Appearance: alert, no distress HEENT: EOMI, PERRLA, normal external inspect of ears, no icterus, no nasal drainage Neck: no carotid bruit, no jugular venous distention (JVD), no lymphadenopathy Chest: normal thorax Respiratory: clear to auscultation, normal air movement Cardiovascular: regular rate and rhythm, no diastolic murmur, no jugular venous distention (JVD), no rub, no systolic murmur Abdominal: soft, no hepatomegaly, no mass, no splenomegaly, no tenderness Genitourinary: grossly normal external Musculoskeletal: no joint tenderness, no swelling Extremities: normal pulses, no calf tenderness, no clubbing, no cyanosis, no edema Skin: no bruising, no jaundice, no rash Neurological: alert, No focal deficit laboratory and microbiology Laboratory Tests 03/31/24 05:42 03/30/24 02:53 Test 03/31/24 05:42 Range/Units Serum Glucose 266 H 74-106 mg/dL Problem List 1. Chest pain Monitor, cardiology consult, trend troponin 2. NSTEMI Monitor, cardiology consult, Heparin GTT 3. HLD Monitor 4. DM II w/ hyperglycemia Monitor, insulin SS Assessment/Plan Subjective: Patient is awake and alert. Objective: Updated patient and patient's at bedside. 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 Patient's current creatinine is 2.74 which is slightly decreased from yesterday. Patient was admitted as NSTEMI. Currently on a heparin drip. Patient has left hydronephrosis, no stone was seen. Plan: Continue current treatment. Monitor renal function. Nephrology not advising angiogram at this time. Continue heparin drip, and cardiology recommendations appreciated. Plan discussed with: Patient, Other ISA GRANT NP Mar 31, 2024 12:12
--- NOTE | 2024-03-31 13:04 | DVHPN2 ---
Progress Note - Dictate Date Seen: Mar 31, 2024 Has the PT tested + for MRSA If YES, has PT been informed?: No Medical Necessity Reason Pt with a Central, PICC or Fol: No Subjective Patient was comfortably sleeping Denies chest pain vital signs Vital Sign Date Time Temp Pulse Resp B/P (MAP) Pulse Ox O2 Delivery O2 Flow Rate FiO2 03/31/24 09:00 97.8 63 19 140/89 (106) 91 97.8 03/31/24 08:00 Nasal Cannula* 3 32 Total Intake and Output 03/30/24 03/30/24 03/31/24 15:00 23:00 07:00 Intake Total 1250 ml 2072.25 ml 0 ml Output Total 450 ml 300 ml Balance 800 ml 2072.25 ml -300 ml medications Current Medications Medications Dose Ordered Sig/Prince Route Start Time Stop Time Status Last Admin Dose Admin Nitroglycerin 0.4 mg Q5MINP PRN SL 03/28/24 18:00 03/31/24 03:47 0.4 MG Morphine Sulfate 2 mg Q30M PRN IV 03/28/24 18:00 Aspirin 81 mg DAILY PO 03/29/24 10:00 03/30/24 08:39 81 MG Metoprolol Tartrate 25 mg TID PO 03/28/24 22:00 03/31/24 06:24 25 MG Tamsulosin HCl 0.4 mg DAILY PO 03/29/24 10:00 03/31/24 09:19 0.4 MG Atorvastatin Calcium 40 mg HS PO 03/28/24 22:00 03/30/24 22:28 40 MG Diagnostic Test (Pha) 1 strip ACHS 03/28/24 22:00 03/31/24 11:32 1 STRIP Insulin Human Regular HS SC 03/28/24 22:00 03/30/24 22:52 6 UNITS Insulin Human Regular AC SC 03/29/24 07:00 03/31/24 12:25 6 UNITS Dextrose 50 ml UD PRN IV 03/28/24 18:00 Pantoprazole Sodium 40 mg DAILY PO 03/29/24 10:00 03/31/24 09:19 40 MG Hydromorphone HCl 0.5 mg Q4HPRN PRN IV 03/29/24 11:30 03/30/24 20:45 0.5 MG Heparin Sodium/ Dextrose 250 ml @ 18 mls/hr [id number] IV 03/29/24 21:15 03/31/24 01:13 18 MLS/HR Alprazolam 0.5 mg Q6HP PRN PO 03/31/24 10:40 03/31/24 11:30 0.5 MG objective A & O x 3 NAD Lungs CTA CV RR, no pericardial rub Abdomen soft, NT No edema laboratory and microbiology Laboratory Tests 03/31/24 05:42 03/30/24 02:53 Test 03/31/24 05:42 Range/Units Serum Glucose 266 H 74-106 mg/dL Problem List 1. CHAVA 2. Obsatructive uropathy, Left hydronephrosis, but renal size is normal , and there is no evidence of obstructing stone, might have passed 3. HTN is better controlled 4. CKD3b 5. Diabetic nephropathy 6. Metabolic acidosis 7. Risk of contrast-induced nephropathy is very high, I would not recommend coronary angiogram in this setting unless it is absolutely necessary 8. Uncontrolled DM2 May stop IVF PO Bumex PRN Daily BMP Urology consult Stop ACEI Plan discussed with: Patient, Spouse SRUTHI SERRANO MD Mar 31, 2024 13:04
--- NOTE | 2024-03-31 15:52 | DVHINCON2 ---
Date of service: Mar 31, 2024 Referring Physician Nori Reason for Consultation left ureteral stone History of Present Illness several day hx left renal colic pain.CT shows 4 to 5 mm stone lower ureter;pt had other stone 8 years ago; pt just passed stone Past Medical History reviewed Past Surgical History reviewed Family History: Gout Allergies: Coded Allergies: Acetaminophen (Verified Allergy, Unknown, 09/17/18) Hydrocodone (Verified Allergy, Unknown, 09/17/18) Home Meds Active Scripts Oxycodone HCl (Oxycodone Hydrochloride) 5 Mg Tab, 5 MG PO TID PRN for 4 Days, #12 TAB Prov:DASIA HAWKINS MD 03/28/24 Tamsulosin Hcl (Flomax) 0.4 Mg Cap, 1 CAP PO DAILY for 14 Days, #30 CAP 11 Refills Prov:DASIA HAWKINS MD 03/28/24 Reported Medications Lisinopril (Lisinopril) 10 Mg Tab, 1 TAB PO DAILY 03/28/24 Cholecalciferol (Vitamin D3) 50,000 Unit Cap, 1 CAP PO QWEEKLY 03/28/24 Fenofibrate (Fenofibrate) 54 Mg Tab, 1 TAB PO DAILY 03/28/24 Furosemide (Furosemide) 40 Mg Tab, 1 TAB PO DAILY 03/28/24 Carvedilol (Carvedilol) 6.25 Mg Tab, 1 TAB PO BID 03/28/24 Metformin Hydrochloride (Metformin Hcl) 500 Mg Tab, 1 TAB PO BID 03/28/24 Glipizide (Glipizide) 10 Mg Tab, 1 TAB PO BID 03/28/24 Metoprolol Tartrate (Metoprolol Tartrate) 25 Mg Tab, 25 MG PO TID for 30 Days, MG 09/19/18 Clopidogrel Bisulfate (CLOPIDOGREL) 75 Mg Tab, 1 TAB PO DAILY, #90 TAB 1 Refill 09/19/18 Aspirin (Aspir-Low) 81 Mg Tab, 81 MG PO DAILY for 30 Days, MG 09/19/18 Nitroglycerin (NTROSTAT SUBLINGUAL) 0.4 Mg Sl, 0.4 MG SL PRN *MAY REPEAT EVERY 5 MINUTES X 3 TOTAL IF NO RELIEF, INITIATE ANALGESIC THERAPY. NOTIFY PHYSICIAN *Do not crush. 09/19/18 Atorvastatin Calcium (ATORVASTATIN CALCIUM) 40 Mg Tab, 1 TAB PO QPM, #90 TAB 3 Refills 09/19/18 Current Medications Current Medications Medications (Trade) Dose Ordered Sig/Prince Route PRN Reason Start Time Stop Time Status Last Admin Alprazolam (Xanax Tablet) 0.5 mg Q6HP PRN PO ANXIETY 03/31/24 10:40 03/31/24 11:30 Review of Systems reviewed Vital Signs Vital Signs Date Time Temp Pulse Resp B/P (MAP) Pulse Ox O2 Delivery O2 Flow Rate FiO2 03/31/24 14:10 84 156/93 03/31/24 14:00 98.6 19 96 98.6 03/31/24 08:00 Nasal Cannula* 3 32 Labs/Diagnostic Data Labs Test 03/31/24 05:42 03/30/24 22:25 03/30/24 02:53 03/29/24 13:50 Range/Units Prothrombin Time 10.3 9.3-11.8 sec Prothrombin Time INR 0.97 0.9-1.15 Activated Partial Thromboplast Time 50.7 H 24.5-34.5 SEC Sodium Level 136 136-145 mmol/L Potassium Level 4.1 3.5-5.1 mmol/L Chloride Level 105 98-107 mmol/L Carbon Dioxide Level 17 L 20-31 mmol/L Anion Gap 14 5-15 Blood Urea Nitrogen 22 9-23 mg/dL Creatinine 2.74 H 0.700-1.30 mg/dL Glomerular Filtration Rate Calc 27 >90 mL/min BUN/Creatinine Ratio 8.0 L 10.0-20.0 Serum Glucose 266 H 74-106 mg/dL Calcium Level 9.6 8.7-10.4 mg/dL POC Glucose 286 H 70-106 mg/dl White Blood Count 9.9 4.4-10.8 10^3/uL Red Blood Count 4.13 L 4.5-5.90 10^6/uL Hemoglobin 13.0 L 13.5-17.5 g/dL Hematocrit 38.4 L 41.0-53.0 % Mean Corpuscular Volume 92.8 80.0-100.0 fL Mean Corpuscular Hemoglobin 31.5 28.0-32.0 pg Mean Corpuscular Hemoglobin Concent 34.0 32.0-36.0 g/dL Red Cell Distribution Width 13.3 11.8-14.3 % Platelet Count 262 140-450 10^3/uL Mean Platelet Volume 8.0 6.9-10.8 fL Neutrophils (%) (Auto) 65.2 37.0-80.0 % Lymphocytes (%) (Auto) 23.7 10.0-50.0 % Monocytes (%) (Auto) 6.8 0.0-12.0 % Eosinophils (%) (Auto) 3.5 0.0-7.0 % Basophils (%) (Auto) 0.8 0.0-2.0 % Neutrophils # (Auto) 6.5 1.6-8.6 10 ^3/uL Lymphocytes # (Auto) 2.3 0.4-5.4 10 ^3/uL Monocytes # (Auto) 0.7 0-1.3 10 ^3/uL Eosinophils # (Auto) 0.3 0-0.8 10 ^3/uL Basophils # (Auto) 0.1 0-0.2 10 ^3/uL Nucleated Red Blood Cells 0.1 % Urine Creatinine 138.15 H 30.0-125.0 mg/dL Urine Protein/Creatinine Ratio 0.22 Urine Sodium 29 L 40-220 mmol/L Urine Total Protein 29.9 H 1-14 mg/dL Test 03/29/24 13:02 03/29/24 05:04 03/28/24 14:28 Range/Units Uric Acid 13.0 H 3.7-9.2 mg/dL Phosphorus Level 3.8 2.4-5.1 mg/dL Magnesium Level 2.1 1.6-2.6 mg/dL Total Bilirubin 0.6 0.2-1.0 mg/dL Aspartate Amino Transferase (AST) 84 H 13-40 U/L Alanine Aminotransferase (ALT) 34 7-40 U/L Alkaline Phosphatase 109 46-116 U/L Total Protein 6.1 5.7-8.2 g/dL Albumin 3.8 3.2-4.8 g/dL Troponin I High Sensitivity 549 *H </=54 ng/L Assessment left ureteral stone passed, renal failure Plan/Recommendation KUB,cont observation for ARF Plan discussed with: Patient, Spouse JEAN CLAUDE SZYMANSKI MD Mar 31, 2024 15:52
--- NOTE | 2024-03-31 16:17 | DVH ---
Date: 03/31/2024 03:45 PM Examination: XY KUB ABDOMEN SINGLE VIEW History: left ureteral stone Comparison: None TECHNIQUE: Frontal views of the abdomen was obtained. FINDINGS: Bowel gas pattern is unremarkable. The lung bases are unremarkable. No acute osseous abnormality identified. IMPRESSION: 1. Nonobstructive bowel gas pattern. 2. 4 mm calculus in the ureter as described [place] CT of 1125 2023 is not visible on x-ray.
--- NOTE | 2024-03-31 19:39 | DVHPN2 ---
Progress Note - Dictate Date Seen: Mar 31, 2024 Has the PT tested + for MRSA If YES, has PT been informed?: No Medical Necessity Reason Pt with a Central, PICC or Fol: No Subjective Patient was seen and evaluated in follow up. Patient is complaining of chest pressure, was administered Nitro SL. Chest pain improved. 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 vital signs Vital Sign Date Time Temp Pulse Resp B/P (MAP) Pulse Ox O2 Delivery O2 Flow Rate FiO2 03/31/24 09:00 97.8 63 19 140/89 (106) 91 97.8 03/30/24 20:00 Room Air* 0 21 Total Intake and Output 03/30/24 03/30/24 03/31/24 15:00 23:00 07:00 Intake Total 1250 ml 2072.25 ml 0 ml Output Total 450 ml 300 ml Balance 800 ml 2072.25 ml -300 ml medications Current Medications Medications Dose Ordered Sig/Prince Route Start Time Stop Time Status Last Admin Dose Admin Nitroglycerin 0.4 mg Q5MINP PRN SL 03/28/24 18:00 03/31/24 03:47 0.4 MG Morphine Sulfate 2 mg Q30M PRN IV 03/28/24 18:00 Aspirin 81 mg DAILY PO 03/29/24 10:00 03/30/24 08:39 81 MG Metoprolol Tartrate 25 mg TID PO 03/28/24 22:00 03/31/24 06:24 25 MG Tamsulosin HCl 0.4 mg DAILY PO 03/29/24 10:00 03/31/24 09:19 0.4 MG Atorvastatin Calcium 40 mg HS PO 03/28/24 22:00 03/30/24 22:28 40 MG Diagnostic Test (Pha) 1 strip ACHS 03/28/24 22:00 03/31/24 11:32 1 STRIP Insulin Human Regular HS SC 03/28/24 22:00 03/30/24 22:52 6 UNITS Insulin Human Regular AC SC 03/29/24 07:00 03/31/24 12:25 6 UNITS Dextrose 50 ml UD PRN IV 03/28/24 18:00 Pantoprazole Sodium 40 mg DAILY PO 03/29/24 10:00 03/31/24 09:19 40 MG Hydromorphone HCl 0.5 mg Q4HPRN PRN IV 03/29/24 11:30 03/30/24 20:45 0.5 MG Heparin Sodium/ Dextrose 250 ml @ 18 mls/hr [id number] IV 03/29/24 21:15 03/31/24 01:13 18 MLS/HR Alprazolam 0.5 mg Q6HP PRN PO 03/31/24 10:40 03/31/24 11:30 0.5 MG objective GENERAL: Awake, alert, oriented. LUNGS: Clear. CARDIOVASCULAR: Heart sounds are good. ABDOMEN: Soft. laboratory and microbiology Laboratory Tests 03/31/24 05:42 03/30/24 02:53 Test 03/31/24 05:42 Range/Units Serum Glucose 266 H 74-106 mg/dL Problem List NSTEMI. Chest pain. HLD. DM II w/ hyperglycemia. Assessment/Plan Continued all current supportive medical care. Dilaudid for pain management. Heparin drip per pharmacy protocol. Aspirin, Lipitor, Metoprolol. Nitro SL. Lisinopril. GI prophylactics. Additional plan as per the hospital course. Plan discussed with: Patient VALERIE MCBRIDE MD Mar 31, 2024 12:31
[2024-04-01] VITALS (13 sets, daily range): BP systolic 116–149; BP diastolic 82–108; PULSE 65–98; RESP 17–22; TEMP 97.6–99; O2SAT 81–99
[2024-04-01 06:39] LABS: Chloride 103 mmol/L (98-107); Potassium 3.8 mmol/L (3.5-5.1); Sodium 137 mmol/L (136-145)
[2024-04-01 06:40] LABS: Anion Gap 15 (5-15)
[2024-04-01 06:45] LABS: BUN/Creatinine Ratio 7.5 (10.0-20.0); Blood Urea Nitrogen 19 mg/dL (9-23)
[2024-04-01 06:46] LABS: Carbon Dioxide 19 mmol/L (20-31); Glucose 239 mg/dL (74-106)
[2024-04-01 06:48] LABS: INR 1.03 (0.9-1.15); Partial Thromboplastin Time 46.4 SEC (24.5-34.5); Prothrombin Time 10.9 sec (9.3-11.8)
[2024-04-01] MEDS: HEPARIN DRIP/D5W 100UNITS/ML 250 ML IV SCH (09:53)
--- NOTE | 2024-04-01 12:26 | DVHPN2 ---
Progress Note - Dictate Date Seen: Apr 01, 2024 Has the PT tested + for MRSA If YES, has PT been informed?: No Medical Necessity Reason Pt with a Central, PICC or Fol: No Subjective Patient was comfortably sleeping Denies chest pain vital signs Vital Sign Date Time Temp Pulse Resp B/P (MAP) Pulse Ox O2 Delivery O2 Flow Rate FiO2 04/01/24 09:53 88 147/104 04/01/24 08:35 98.6 17 92 98.6 04/01/24 08:00 Nasal Cannula* 3 32 Total Intake and Output 03/31/24 03/31/24 04/01/24 15:00 23:00 07:00 Intake Total 1650 ml 300 ml Output Total 1450 ml Balance 1650 ml -1150 ml medications Current Medications Medications Dose Ordered Sig/Prince Route Start Time Stop Time Status Last Admin Dose Admin Nitroglycerin 0.4 mg Q5MINP PRN SL 03/28/24 18:00 03/31/24 03:47 0.4 MG Morphine Sulfate 2 mg Q30M PRN IV 03/28/24 18:00 Aspirin 81 mg DAILY PO 03/29/24 10:00 04/01/24 09:12 81 MG Metoprolol Tartrate 25 mg TID PO 03/28/24 22:00 04/01/24 06:12 25 MG Tamsulosin HCl 0.4 mg DAILY PO 03/29/24 10:00 04/01/24 09:12 0.4 MG Atorvastatin Calcium 40 mg HS PO 03/28/24 22:00 03/31/24 22:10 40 MG Diagnostic Test (Pha) 1 strip ACHS 03/28/24 22:00 04/01/24 11:30 1 STRIP Insulin Human Regular HS SC 03/28/24 22:00 03/31/24 22:08 4 UNITS Insulin Human Regular AC SC 03/29/24 07:00 04/01/24 06:08 6 UNITS Dextrose 50 ml UD PRN IV 03/28/24 18:00 Pantoprazole Sodium 40 mg DAILY PO 03/29/24 10:00 04/01/24 09:12 40 MG Hydromorphone HCl 0.5 mg Q4HPRN PRN IV 03/29/24 11:30 03/30/24 20:45 0.5 MG Alprazolam 0.5 mg Q6HP PRN PO 03/31/24 10:40 04/01/24 09:12 0.5 MG Heparin Sodium/ Dextrose 250 ml @ 20 mls/hr [id number] IV 04/01/24 08:30 04/01/24 09:53 20 MLS/HR objective A & O x 3 NAD Lungs CTA CV RR, no pericardial rub Abdomen soft, NT No edema laboratory and microbiology Laboratory Tests 04/01/24 05:53 03/30/24 02:53 Test 04/01/24 05:53 Range/Units Serum Glucose 239 H 74-106 mg/dL Problem List 1. CHAVA, GFR has started to improve 2. Obstructive uropathy, Left hydronephrosis, but renal size is normal , and there is no evidence of obstructing stone, might have passed 3. HTN is better controlled 4. CKD3b 5. Diabetic nephropathy 6. Metabolic acidosis 7. Risk of contrast-induced nephropathy is very high, I would not recommend coronary angiogram in this setting unless it is absolutely necessary 8. Uncontrolled DM2 PO Bumex PRN Daily BMP Urology consult Stop ACEI for now Plan discussed with: Patient SRUTHI SERRANO MD Apr 01, 2024 12:26
--- NOTE | 2024-04-01 13:50 | DVHPN2 ---
Progress Note - Dictate Date Seen: Apr 01, 2024 Has the PT tested + for MRSA If YES, has PT been informed?: No Medical Necessity Reason Pt with a Central, PICC or Fol: No vital signs Vital Sign Date Time Temp Pulse Resp B/P (MAP) Pulse Ox O2 Delivery O2 Flow Rate FiO2 04/01/24 13:18 85 149/108 04/01/24 08:35 98.6 17 92 98.6 04/01/24 08:00 Nasal Cannula* 3 32 Total Intake and Output 03/31/24 03/31/24 04/01/24 15:00 23:00 07:00 Intake Total 1650 ml 300 ml Output Total 1450 ml Balance 1650 ml -1150 ml medications Current Medications Medications Dose Ordered Sig/Prince Route Start Time Stop Time Status Last Admin Dose Admin Nitroglycerin 0.4 mg Q5MINP PRN SL 03/28/24 18:00 03/31/24 03:47 0.4 MG Morphine Sulfate 2 mg Q30M PRN IV 03/28/24 18:00 Aspirin 81 mg DAILY PO 03/29/24 10:00 04/01/24 09:12 81 MG Metoprolol Tartrate 25 mg TID PO 03/28/24 22:00 04/01/24 13:18 25 MG Tamsulosin HCl 0.4 mg DAILY PO 03/29/24 10:00 04/01/24 09:12 0.4 MG Atorvastatin Calcium 40 mg HS PO 03/28/24 22:00 03/31/24 22:10 40 MG Diagnostic Test (Pha) 1 strip ACHS 03/28/24 22:00 04/01/24 11:30 1 STRIP Insulin Human Regular HS SC 03/28/24 22:00 03/31/24 22:08 4 UNITS Insulin Human Regular AC SC 03/29/24 07:00 04/01/24 12:26 12 UNITS Dextrose 50 ml UD PRN IV 03/28/24 18:00 Pantoprazole Sodium 40 mg DAILY PO 03/29/24 10:00 04/01/24 09:12 40 MG Hydromorphone HCl 0.5 mg Q4HPRN PRN IV 03/29/24 11:30 03/30/24 20:45 0.5 MG Alprazolam 0.5 mg Q6HP PRN PO 03/31/24 10:40 04/01/24 09:12 0.5 MG Heparin Sodium/ Dextrose 250 ml @ 20 mls/hr [id number] IV 04/01/24 08:30 04/01/24 09:53 20 MLS/HR objective General Appearance: alert, no distress HEENT: EOMI, PERRLA, normal external inspect of ears, no icterus, no nasal drainage Neck: no carotid bruit, no jugular venous distention (JVD), no lymphadenopathy Chest: normal thorax Respiratory: clear to auscultation, normal air movement Cardiovascular: regular rate and rhythm, no diastolic murmur, no jugular venous distention (JVD), no rub, no systolic murmur Abdominal: soft, no hepatomegaly, no mass, no splenomegaly, no tenderness Genitourinary: grossly normal external Musculoskeletal: no joint tenderness, no swelling Extremities: normal pulses, no calf tenderness, no clubbing, no cyanosis, no edema Skin: no bruising, no jaundice, no rash Neurological: alert, No focal deficit laboratory and microbiology Laboratory Tests 04/01/24 05:53 03/30/24 02:53 Test 04/01/24 05:53 Range/Units Serum Glucose 239 H 74-106 mg/dL Problem List 1. Chest pain Monitor, cardiology consult, trend troponin 2. NSTEMI Monitor, cardiology consult, Heparin GTT 3. HLD Monitor 4. DM II w/ hyperglycemia Monitor, insulin SS Assessment/Plan Subjective: Patient is awake and alert. Objective: Creatinine is down to 2.5 to. Patient had obstructive uropathy due to ureteral stone which has since passed. Patient is as NSTEMI currently on heparin drip. Patient had complaints of shortness of breath today. ABG, chest x-ray, and repeat troponin levels were ordered. Troponin levels are elevated at 7000 compared to 500. I did speak with Dr. Engel at length who stated patient will now need Education Analyst even now he has a resolving CHAVA. Dr. Engel will speak with Dr. Fuchs to take patient for angiogram. Plan: Patient to be n.p.o. Continue heparin drip. Monitor renal function. Plan for angiogram. Plan discussed with: Patient, Other ISA GRANT NP Apr 01, 2024 13:50
--- NOTE | 2024-04-01 14:25 | DVHPN2 ---
Progress Note - Dictate Date Seen: Apr 01, 2024 Has the PT tested + for MRSA If YES, has PT been informed?: No Medical Necessity Reason Pt with a Central, PICC or Fol: No Subjective Patient was seen and evaluated in follow up. Patient is complaining of generalized pain. Patient denies any further chest pain. KUB shows nonobstructive bowel gas pattern, 4 mm calculus in the ureter as described [place] of 1125 2023 is not visible on x-ray. 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 vital signs Vital Sign Date Time Temp Pulse Resp B/P (MAP) Pulse Ox O2 Delivery O2 Flow Rate FiO2 04/01/24 09:53 88 147/104 04/01/24 08:35 98.6 17 92 98.6 04/01/24 08:00 Nasal Cannula* 3 32 Total Intake and Output 03/31/24 03/31/24 04/01/24 15:00 23:00 07:00 Intake Total 1650 ml 300 ml Output Total 1450 ml Balance 1650 ml -1150 ml medications Current Medications Medications Dose Ordered Sig/Prince Route Start Time Stop Time Status Last Admin Dose Admin Nitroglycerin 0.4 mg Q5MINP PRN SL 03/28/24 18:00 03/31/24 03:47 0.4 MG Morphine Sulfate 2 mg Q30M PRN IV 03/28/24 18:00 Aspirin 81 mg DAILY PO 03/29/24 10:00 04/01/24 09:12 81 MG Metoprolol Tartrate 25 mg TID PO 03/28/24 22:00 04/01/24 06:12 25 MG Tamsulosin HCl 0.4 mg DAILY PO 03/29/24 10:00 04/01/24 09:12 0.4 MG Atorvastatin Calcium 40 mg HS PO 03/28/24 22:00 03/31/24 22:10 40 MG Diagnostic Test (Pha) 1 strip ACHS 03/28/24 22:00 04/01/24 11:30 1 STRIP Insulin Human Regular HS SC 03/28/24 22:00 03/31/24 22:08 4 UNITS Insulin Human Regular AC SC 03/29/24 07:00 04/01/24 06:08 6 UNITS Dextrose 50 ml UD PRN IV 03/28/24 18:00 Pantoprazole Sodium 40 mg DAILY PO 03/29/24 10:00 04/01/24 09:12 40 MG Hydromorphone HCl 0.5 mg Q4HPRN PRN IV 03/29/24 11:30 03/30/24 20:45 0.5 MG Alprazolam 0.5 mg Q6HP PRN PO 03/31/24 10:40 04/01/24 09:12 0.5 MG Heparin Sodium/ Dextrose 250 ml @ 20 mls/hr [id number] IV 04/01/24 08:30 04/01/24 09:53 20 MLS/HR objective GENERAL: Awake, alert, oriented. LUNGS: Clear. CARDIOVASCULAR: Heart sounds are good. ABDOMEN: Soft. laboratory and microbiology Laboratory Tests 04/01/24 05:53 03/30/24 02:53 Test 04/01/24 05:53 Range/Units Serum Glucose 239 H 74-106 mg/dL Problem List NSTEMI. Chest pain. HLD. DM II w/ hyperglycemia. Assessment/Plan Continued all current supportive medical care. Dilaudid for pain management. Heparin drip per pharmacy protocol. Aspirin, Lipitor, Metoprolol. Nitro SL. Lisinopril. GI prophylactics. Additional plan as per the hospital course. Plan discussed with: Patient VALERIE MCBRIDE MD Apr 01, 2024 12:19
[2024-04-01] MEDS ORDERED: ALBUTEROL SULF 2.5 MG/0.5ML(0.5%) NEB SOLN NEB SCH (14:30)
[2024-04-01] MEDS: FLUTICASONE PROP NASAL SPR 0.05 % (50MCG) 16GM EACHNOSTRI SCH (14:30)
[2024-04-01 15:01] LABS: Base Excess -3.8 mmol/L (-2.0-3.0)
[2024-04-01 15:24] LABS: INR 1.04 (0.9-1.15); Partial Thromboplastin Time 48.4 SEC (24.5-34.5)
[2024-04-01] MEDS: IODIXANOL 320MG/ML 100ML BTL IV ONE ×2 (16:53→17:34)
--- NOTE | 2024-04-01 17:09 | DVHINCON2 ---
Date of service: Apr 01, 2024 History of Present Illness 53 yo M hx of cad s/p pci to RCA for stemi in 2019, ckd, admitted for renal colic and stone and nstemi.. [facility] was deferred 22 to ckd but now i am called as pt having chest pain and trop is higher. Past Medical History reviewed Family History: Gout Allergies: Coded Allergies: Acetaminophen (Verified Allergy, Unknown, 09/17/18) Hydrocodone (Verified Allergy, Unknown, 09/17/18) Home Meds Active Scripts Oxycodone HCl (Oxycodone Hydrochloride) 5 Mg Tab, 5 MG PO TID PRN for 4 Days, #12 TAB Prov:DASIA HAWKINS MD 03/28/24 Tamsulosin Hcl (Flomax) 0.4 Mg Cap, 1 CAP PO DAILY for 14 Days, #30 CAP 11 Refills Prov:DASIA HAWKINS MD 03/28/24 Reported Medications Lisinopril (Lisinopril) 10 Mg Tab, 1 TAB PO DAILY 03/28/24 Cholecalciferol (Vitamin D3) 50,000 Unit Cap, 1 CAP PO QWEEKLY 03/28/24 Fenofibrate (Fenofibrate) 54 Mg Tab, 1 TAB PO DAILY 03/28/24 Furosemide (Furosemide) 40 Mg Tab, 1 TAB PO DAILY 03/28/24 Carvedilol (Carvedilol) 6.25 Mg Tab, 1 TAB PO BID 03/28/24 Metformin Hydrochloride (Metformin Hcl) 500 Mg Tab, 1 TAB PO BID 03/28/24 Glipizide (Glipizide) 10 Mg Tab, 1 TAB PO BID 03/28/24 Metoprolol Tartrate (Metoprolol Tartrate) 25 Mg Tab, 25 MG PO TID for 30 Days, MG 09/19/18 Clopidogrel Bisulfate (CLOPIDOGREL) 75 Mg Tab, 1 TAB PO DAILY, #90 TAB 1 Refill 09/19/18 Aspirin (Aspir-Low) 81 Mg Tab, 81 MG PO DAILY for 30 Days, MG 09/19/18 Nitroglycerin (NTROSTAT SUBLINGUAL) 0.4 Mg Sl, 0.4 MG SL PRN *MAY REPEAT EVERY 5 MINUTES X 3 TOTAL IF NO RELIEF, INITIATE ANALGESIC THERAPY. NOTIFY PHYSICIAN *Do not crush. 09/19/18 Atorvastatin Calcium (ATORVASTATIN CALCIUM) 40 Mg Tab, 1 TAB PO QPM, #90 TAB 3 Refills 09/19/18 Current Medications Current Medications Medications (Trade) Dose Ordered Sig/Prince Route PRN Reason Start Time Stop Time Status Last Admin Heparin Sodium/ Dextrose 250 ml @ 20 mls/hr [id number] IV 04/01/24 08:30 04/01/24 09:53 Fluticasone Propionate (Flonase Calvin) 100 mcg DAILY EACHNOSTRI 04/01/24 14:30 Albuterol (Ventolin Medneb) 2.5 mg Q6HWA NEB 04/01/24 14:30 04/01/24 16:32 DC Albuterol (Ventolin Medneb) 2.5 mg Q6HWA NEB 04/01/24 18:00 Review of Systems +chest pain +sob Vital Signs Vital Signs Date Time Temp Pulse Resp B/P (MAP) Pulse Ox O2 Delivery O2 Flow Rate FiO2 04/01/24 15:26 98.6 91 20 149/108 96 3.0 98.6 04/01/24 08:00 Nasal Cannula* 32 Physical Exam nad s1 s2 rrr cdtab soft nt/nd Labs/Diagnostic Data Labs Test 04/01/24 16:00 04/01/24 14:50 04/01/24 14:46 04/01/24 11:42 Range/Units Troponin I High Sensitivity 7376 *H </=54 ng/L Blood Gas Specimen Type Arterial Blood Gas Sample Site Right radial Blood Gas Patient Temperature 37.0 Arterial Blood Date Drawn [id number] Arterial Blood pH 7.420 7.350-7.450 Arterial Blood Partial Pressure CO2 30.7 L 35.0-48.0 mmHg Arterial Blood Partial Pressure O2 94.1 83.0-108.0 mmHg Arterial Blood HCO3 19.5 L 21.0-28.0 mmol/L Arterial Blood Oxygen Saturation 97.2 94.0-98.0 % Arterial Blood Base Excess -3.8 L -2.0-3.0 mmol/L Arterial Blood Oxyhemoglobin 95.3 94.0-98.0 % Arterial Blood Carboxyhemoglobin 1.5 0.5-1.5 % Arterial Blood Methemoglobin 0.5 0.0-1.5 % Emeterio Test Yes Blood Gas Total Hemoglobin 14.60 13.5-17.5 g/dL Blood Gas Modality Nasal cannula FiO2 % 32.0 Prothrombin Time 11.0 9.3-11.8 sec Prothrombin Time INR 1.04 0.9-1.15 Activated Partial Thromboplast Time 48.4 H 24.5-34.5 SEC POC Glucose 314 H 70-106 mg/dl Test 04/01/24 05:53 03/30/24 02:53 03/29/24 13:50 03/29/24 13:02 Range/Units Sodium Level 137 136-145 mmol/L Potassium Level 3.8 3.5-5.1 mmol/L Chloride Level 103 98-107 mmol/L Carbon Dioxide Level 19 L 20-31 mmol/L Anion Gap 15 5-15 Blood Urea Nitrogen 19 9-23 mg/dL Creatinine 2.52 H 0.700-1.30 mg/dL Glomerular Filtration Rate Calc 30 >90 mL/min BUN/Creatinine Ratio 7.5 L 10.0-20.0 Serum Glucose 239 H 74-106 mg/dL Calcium Level 10.0 8.7-10.4 mg/dL White Blood Count 9.9 4.4-10.8 10^3/uL Red Blood Count 4.13 L 4.5-5.90 10^6/uL Hemoglobin 13.0 L 13.5-17.5 g/dL Hematocrit 38.4 L 41.0-53.0 % Mean Corpuscular Volume 92.8 80.0-100.0 fL Mean Corpuscular Hemoglobin 31.5 28.0-32.0 pg Mean Corpuscular Hemoglobin Concent 34.0 32.0-36.0 g/dL Red Cell Distribution Width 13.3 11.8-14.3 % Platelet Count 262 140-450 10^3/uL Mean Platelet Volume 8.0 6.9-10.8 fL Neutrophils (%) (Auto) 65.2 37.0-80.0 % Lymphocytes (%) (Auto) 23.7 10.0-50.0 % Monocytes (%) (Auto) 6.8 0.0-12.0 % Eosinophils (%) (Auto) 3.5 0.0-7.0 % Basophils (%) (Auto) 0.8 0.0-2.0 % Neutrophils # (Auto) 6.5 1.6-8.6 10 ^3/uL Lymphocytes # (Auto) 2.3 0.4-5.4 10 ^3/uL Monocytes # (Auto) 0.7 0-1.3 10 ^3/uL Eosinophils # (Auto) 0.3 0-0.8 10 ^3/uL Basophils # (Auto) 0.1 0-0.2 10 ^3/uL Nucleated Red Blood Cells 0.1 % Urine Creatinine 138.15 H 30.0-125.0 mg/dL Urine Protein/Creatinine Ratio 0.22 Urine Sodium 29 L 40-220 mmol/L Urine Total Protein 29.9 H 1-14 mg/dL Test 03/29/24 05:04 Range/Units Uric Acid 13.0 H 3.7-9.2 mg/dL Phosphorus Level 3.8 2.4-5.1 mg/dL Magnesium Level 2.1 1.6-2.6 mg/dL Total Bilirubin 0.6 0.2-1.0 mg/dL Aspartate Amino Transferase (AST) 84 H 13-40 U/L Alanine Aminotransferase (ALT) 34 7-40 U/L Alkaline Phosphatase 109 46-116 U/L Total Protein 6.1 5.7-8.2 g/dL Albumin 3.8 3.2-4.8 g/dL Parathyroid Hormone (Intact) 82.5 H 18.4-80.1 pg/mL Assessment nstemi htn hl cad ckd Plan/Recommendation recommend [facility] ana laura, ecg shows Subtle st elevation i suspect his rca stent is occluded reviewed images personally continued delay in cardiacc care will adversely affect him high risk for JAMES, pt is aware, renal is on consult 90 mins critical care time spen this was a stat consult seen ana laura Plan discussed with: Patient, Other (rn/ CLINICAL GENETICIST ) DELON GARG MD Apr 01, 2024 17:09
[2024-04-01] MEDS: ANGIOMAX 250 MG VIAL IV ONE (17:33)
[2024-04-01] MEDS: VERAPAMIL 2.5MG/ML INJ 2ML VIAL IV ONE (17:33)
[2024-04-01] MEDS: fentaNYL CITRATE 100 MCG/2 ML VL ONE (17:33)
[2024-04-01] MEDS: LIDOCAINE 2%HCL (LOCAL ANESTH.) INJ 20ML MDV ONE (17:34)
[2024-04-01] MEDS: MIDAZOLAM HCL 2MG/2ML 2ml VIAL (1mg/ml) ONE (17:34)
[2024-04-01] MEDS: SODIUM CHL 0.9% 50 ML ONE (17:34)
[2024-04-01] MEDS: ALBUTEROL SULF 2.5 MG/0.5ML(0.5%) NEB SOLN NEB SCH (18:00)
--- NOTE | 2024-04-01 18:08 | DVHOP2 ---
Operative Report Operative Report CARDIAC SUPERVISOR PHOSPHORIC ACID PROCEDURE REPORT [place], [place] Date of Service: 04/01/24 Stable Hand: Delon Garg MD PROCEDURES PERFORMED: Coronary angiogram, left heart catheterization, conscious sedation administration and supervision, less than 15 minutes; fluoroscopy use and interpretation. conscious sedatin 15-30 mins, ptca 1 vessel, pci 1 vessel, acute NE intervention PREOPERATIVE DIAGNOSES: high risk nstemi, stat urgenet case POSTOP DIAGNOSIS: same DESCRIPTION OF PROCEDURE: The patient or appropriate family signed informed consent understanding the risks, benefits and alternatives of the procedure, they wished to proceed. The patient was brought to the cardiac rd lab technician in n.p.o. state. The patient was prepped in a sterile fashion. Sedation was used per cardiac cath protocol. I administered 2 mL of 2% lidocaine to the right wrist. With an antegrade front wall puncture. I cannulated the right radial artery and placed a 6-[place] Glidesheath slender. Next, an intra-arterial spasmolytic was administered. Next, a - 6French [place] catheter andXB 3.5 and JL3.5 guide and were used for coronary angiogram and LVEDP measurement and pressure pullback. At the completion of procedure, all guides and wires were removed, and there were no immediate complications. FINDINGS: RCA: Moderate vessel off the right sinus of Valsalva, it is prox RCA in stent [place] with L to R collaterals. LEFT MAIN: Moderate size left main, it bifurcates into LAD and circumflex. mild plaque CIRCUMFLEX: Moderate caliber vessel coming off the left main . prox CX is paten t giving off OM1 that bifurcates. the superior branch has 70% stenosis and inferior branch is 90% stenosied small vessel. LAD: LAD is a moderate caliber vessel coming of the left main. prox LAD has a 95% ulcerated ruptured plaque INTERVENTION: We decided to proceed with coronary intervention. I started with a 6F __XB3.5 and then Jl3.5 __ Guide to intubate the __LM . Angiomax bolus and gtt was started. Following this, I decided to wire using an .014 BMW across the culprit lesion with ease. At this time, we performed balloon angioplasty with a _2.5 x 20 mm balloon by balloon up to __510_ ATMS over __15__ seconds with __1__ number of inflations. Following this, I decided to place a stent using a 3.0 x 26 mm mm onyx____ stent inflated up to __18___ ATMS over 15 seconds with two separate inflations. Following this, the stent balloon removed and angio performed showing 0% residual stenosis. KAUSHAL pre/post: 3./3 CONCLUSIONS: 1. sp pci to 95% ruptured LAD ulcerated plaque 2. severe 3v cad PLAN: Aggressive risk factor modification and medical management for the patient. DAPT x 1 year uninterrupted high dose statin consider pcsk9 inhibitor very high risk for future cv events, DELON GARG MD Apr 01, 2024 18:08
[2024-04-01] MEDS: TICAGRELOR 90 MG TAB ONE (18:19)
--- NOTE | 2024-04-01 19:36 | DVH ---
CHEST RADIOGRAPH Indication: SOB Technique: Single frontal view of the chest was obtained Comparison: XY CHEST PORTABLE on DOS: 03/28/24, XY CHEST XRAY 1 VIEW on DOS: 07/09/22, CHEST PORTABLE o n DOS: 09/26/18 FINDINGS: Lines and Tubes: None Lungs: No focal consolidation. Pleura: No effusion. No pneumothorax. Cardiomediastinal contours: Unremarkable Bones: No acute osseous abnormality. IMPRESSION: 1. No acute cardiopulmonary disease.
--- NOTE | 2024-04-01 21:13 | DVHINCON2 ---
Date of service: Apr 01, 2024 Referring Physician Fabi Julio NP Reason for Consultation Acute hypoxic respiratory failure requiring supplemental oxygen. History of Present Illness A 53-year-old man with past medical history of GA, CAD, hypertension, gout, hyperlipidemia, systolic CHF, and diabetes mellitus who presented to ED on 03/28/24 with c/o chest pain. Pain was described as pressure-like. Per EMS patient was hypertensive with systolic BP in the 200s. Note, patient was recently seen at this hospital and was diagnosed with ureteral colic. Patient was admitted for further care and pulmonary consultation is requested for evaluation and management of acute hypoxic respiratory failure requiring supplemental oxygen. Review of Systems: 14-point review of systems negative unless otherwise noted above. Past Medical History: CAD, GA, hypertension, gout, hyperlipidemia, systolic CHF, diabetes mellitus Past Surgical History: Stent, PTCA in 2019, cholecystectomy. Medications: Reviewed. Allergies: Acetaminophen and Hydrocodone. Family History: Gout. Social History: Nonsmoker. No alcohol or illicit drug use. Family History: Gout Allergies: Coded Allergies: Acetaminophen (Verified Allergy, Unknown, 09/17/18) Hydrocodone (Verified Allergy, Unknown, 09/17/18) Home Meds Active Scripts Oxycodone HCl (Oxycodone Hydrochloride) 5 Mg Tab, 5 MG PO TID PRN for 4 Days, #12 TAB Prov:DASIA HAWKINS MD 03/28/24 Tamsulosin Hcl (Flomax) 0.4 Mg Cap, 1 CAP PO DAILY for 14 Days, #30 CAP 11 Refills Prov:DASIA HAWKINS MD 03/28/24 Reported Medications Lisinopril (Lisinopril) 10 Mg Tab, 1 TAB PO DAILY 03/28/24 Cholecalciferol (Vitamin D3) 50,000 Unit Cap, 1 CAP PO QWEEKLY 03/28/24 Fenofibrate (Fenofibrate) 54 Mg Tab, 1 TAB PO DAILY 03/28/24 Furosemide (Furosemide) 40 Mg Tab, 1 TAB PO DAILY 03/28/24 Carvedilol (Carvedilol) 6.25 Mg Tab, 1 TAB PO BID 03/28/24 Metformin Hydrochloride (Metformin Hcl) 500 Mg Tab, 1 TAB PO BID 03/28/24 Glipizide (Glipizide) 10 Mg Tab, 1 TAB PO BID 03/28/24 Metoprolol Tartrate (Metoprolol Tartrate) 25 Mg Tab, 25 MG PO TID for 30 Days, MG 09/19/18 Clopidogrel Bisulfate (CLOPIDOGREL) 75 Mg Tab, 1 TAB PO DAILY, #90 TAB 1 Refill 09/19/18 Aspirin (Aspir-Low) 81 Mg Tab, 81 MG PO DAILY for 30 Days, MG 09/19/18 Nitroglycerin (NTROSTAT SUBLINGUAL) 0.4 Mg Sl, 0.4 MG SL PRN *MAY REPEAT EVERY 5 MINUTES X 3 TOTAL IF NO RELIEF, INITIATE ANALGESIC THERAPY. NOTIFY PHYSICIAN *Do not crush. 09/19/18 Atorvastatin Calcium (ATORVASTATIN CALCIUM) 40 Mg Tab, 1 TAB PO QPM, #90 TAB 3 Refills 09/19/18 Current Medications Current Medications Medications (Trade) Dose Ordered Sig/Prince Route PRN Reason Start Time Stop Time Status Last Admin Heparin Sodium/ Dextrose 250 ml @ 20 mls/hr [id number] IV 04/01/24 08:30 04/01/24 19:21 DC 04/01/24 09:53 Fluticasone Propionate (Flonase [place]) 100 mcg DAILY EACHNOSTRI 04/01/24 14:30 Albuterol (Ventolin Medneb) 2.5 mg Q6HWA NEB 04/01/24 14:30 04/01/24 16:32 DC Albuterol (Ventolin Medneb) 2.5 mg Q6HWA [facility] 04/01/24 18:00 Ticagrelor (Brilinta) 90 mg BID PO 04/02/24 08:00 Vital Signs Vital Signs Date Time Temp Pulse Resp B/P (MAP) Pulse Ox O2 Delivery O2 Flow Rate FiO2 04/01/24 19:10 84 18 129/92 (104) 81 04/01/24 18:10 97.7 97.7 04/01/24 15:26 3.0 04/01/24 08:00 Nasal Cannula* 32 Physical Exam Gen.: Patient lying in bed in no apparent distress. On supplemental oxygen. Head: Normocephalic, atraumatic. Eyes: EOMI/PERRLA. Ears: Normal hearing. Normal anatomy. Neck/trachea: Trachea midline, supple. Nose: Normal external anatomy. Mouth: Moist mucous membranes. Chest: Decreased air entry bilaterally. No wheezing or rhonchi. Cardiovascular: Positive S1, positive S2. Regular rate and rhythm. Abdomen: Positive bowel sounds in all 4 quadrants. Soft, non-tender, non- distended. : Deferred. Rectal: Deferred. Skin: Warm, dry. Intact. Extremities: 2+ radial pulses bilaterally. No lower extremity edema. Neuro: Awake, alert, oriented x3. No gross motor or sensory deficits. Cranial nerves II through XII intact. Gait not assessed. Labs/Diagnostic Data Labs Test 04/01/24 16:56 04/01/24 16:00 04/01/24 14:50 04/01/24 14:46 Range/Units POC Glucose 262 H 70-106 mg/dl Troponin I High Sensitivity 7376 *H </=54 ng/L Blood Gas Specimen Type Arterial Blood Gas Sample Site Right radial Blood Gas Patient Temperature 37.0 Arterial Blood Date Drawn [id number] Arterial Blood pH 7.420 7.350-7.450 Arterial Blood Partial Pressure CO2 30.7 L 35.0-48.0 mmHg Arterial Blood Partial Pressure O2 94.1 83.0-108.0 mmHg Arterial Blood HCO3 19.5 L 21.0-28.0 mmol/L Arterial Blood Oxygen Saturation 97.2 94.0-98.0 % Arterial Blood Base Excess -3.8 L -2.0-3.0 mmol/L Arterial Blood Oxyhemoglobin 95.3 94.0-98.0 % Arterial Blood Carboxyhemoglobin 1.5 0.5-1.5 % Arterial Blood Methemoglobin 0.5 0.0-1.5 % Emeterio Test Yes Blood Gas Total Hemoglobin 14.60 13.5-17.5 g/dL Blood Gas Modality Nasal cannula FiO2 % 32.0 Prothrombin Time 11.0 9.3-11.8 sec Prothrombin Time INR 1.04 0.9-1.15 Activated Partial Thromboplast Time 48.4 H 24.5-34.5 SEC Test 04/01/24 05:53 03/30/24 02:53 03/29/24 13:50 03/29/24 13:02 Range/Units Sodium Level 137 136-145 mmol/L Potassium Level 3.8 3.5-5.1 mmol/L Chloride Level 103 98-107 mmol/L Carbon Dioxide Level 19 L 20-31 mmol/L Anion Gap 15 5-15 Blood Urea Nitrogen 19 9-23 mg/dL Creatinine 2.52 H 0.700-1.30 mg/dL Glomerular Filtration Rate Calc 30 >90 mL/min BUN/Creatinine Ratio 7.5 L 10.0-20.0 Serum Glucose 239 H 74-106 mg/dL Calcium Level 10.0 8.7-10.4 mg/dL White Blood Count 9.9 4.4-10.8 10^3/uL Red Blood Count 4.13 L 4.5-5.90 10^6/uL Hemoglobin 13.0 L 13.5-17.5 g/dL Hematocrit 38.4 L 41.0-53.0 % Mean Corpuscular Volume 92.8 80.0-100.0 fL Mean Corpuscular Hemoglobin 31.5 28.0-32.0 pg Mean Corpuscular Hemoglobin Concent 34.0 32.0-36.0 g/dL Red Cell Distribution Width 13.3 11.8-14.3 % Platelet Count 262 140-450 10^3/uL Mean Platelet Volume 8.0 6.9-10.8 fL Neutrophils (%) (Auto) 65.2 37.0-80.0 % Lymphocytes (%) (Auto) 23.7 10.0-50.0 % Monocytes (%) (Auto) 6.8 0.0-12.0 % Eosinophils (%) (Auto) 3.5 0.0-7.0 % Basophils (%) (Auto) 0.8 0.0-2.0 % Neutrophils # (Auto) 6.5 1.6-8.6 10 ^3/uL Lymphocytes # (Auto) 2.3 0.4-5.4 10 ^3/uL Monocytes # (Auto) 0.7 0-1.3 10 ^3/uL Eosinophils # (Auto) 0.3 0-0.8 10 ^3/uL Basophils # (Auto) 0.1 0-0.2 10 ^3/uL Nucleated Red Blood Cells 0.1 % Urine Creatinine 138.15 H 30.0-125.0 mg/dL Urine Protein/Creatinine Ratio 0.22 Urine Sodium 29 L 40-220 mmol/L Urine Total Protein 29.9 H 1-14 mg/dL Test 03/29/24 05:04 Range/Units Uric Acid 13.0 H 3.7-9.2 mg/dL Phosphorus Level 3.8 2.4-5.1 mg/dL Magnesium Level 2.1 1.6-2.6 mg/dL Total Bilirubin 0.6 0.2-1.0 mg/dL Aspartate Amino Transferase (AST) 84 H 13-40 U/L Alanine Aminotransferase (ALT) 34 7-40 U/L Alkaline Phosphatase 109 46-116 U/L Total Protein 6.1 5.7-8.2 g/dL Albumin 3.8 3.2-4.8 g/dL Parathyroid Hormone (Intact) 82.5 H 18.4-80.1 pg/mL Assessment Impression: Acute hypoxic respiratory failure CAD s/p PCI NSTEMI Obesity BMI 34.1 Atelectasis Elevated troponin Leucocytosis, resolved Possible ZONIA Plan: Supplemental oxygen Keep o2 saturation above 92% 2 LPM via NC ABG reviewed. Compensated Bronchodilators Flonase nasal spray Cardiology recommendations appreciated s/p Cardiac cath. Brillinta Monitor renal function Monitor electrolytes Supplement as necessary. Monitor ins/outs F/u Nephrology recommendations Obesity, complicates all care Diet and lifestyle modifications for weight reduction. Recommend outpatient evaluation for ZONIA Pt has several risk factors for ZONIA. Accucheks, ISS DVT prophylaxis. GI prophylaxis - Protonix Prognosis: Guarded given patient's multiple co-morbidities. Rest of plan per hospitalist and other consultants. Thank you Fabi Julio NP, for allowing me to participate in this patient's care. Further recommendations will depend on the patient's clinical course. Please do not hesitate to contact me if you have any questions or concerns. This medical document was created using an electronic medical record system with [employer] dictation system. Although these documentations are being carefully reviewed, there may still be some phonetic and typographical changes. The errors are purely typographical, due to imperfection on the software program, and do not reflect any compromise in the patient's medical care. Plan discussed with: Patient, Other (RN, YARN POLISHING MACHINE OPERATOR) VANDANA BYRNE MD Apr 01, 2024 21:13
[2024-04-01 23:29] LABS: INR 1.11 (0.9-1.15); Partial Thromboplastin Time 44.5 SEC (24.5-34.5); Prothrombin Time 11.7 sec (9.3-11.8)
[2024-04-02] VITALS (16 sets, daily range): BP systolic 101–140; BP diastolic 76–95; PULSE 65–97; RESP 16–21; TEMP 97.5–98.7; O2SAT 93–100
[2024-04-02 07:03] LABS: Basophils # (auto) 0.1 10 ^3/uL (0-0.2); Basophils % (auto) 0.7 % (0.0-2.0); Eosinophils # (auto) 0.4 10 ^3/uL (0-0.8); Eosinophils % (auto) 5.1 % (0.0-7.0); Hematocrit 38.7 % (41.0-53.0); Hemoglobin 13.7 g/dL (13.5-17.5); Lymphocytes # (auto) 1.2 10 ^3/uL (0.4-5.4); Lymphocytes % (auto) 15.9 % (10.0-50.0); Mean Corpuscular Hemoglobin 32.3 pg (28.0-32.0); Mean Corpuscular Hgb Conc. 35.5 g/dL (32.0-36.0); Mean Corpuscular Volume 91.1 fL (80.0-100.0); Monocytes # (auto) 0.6 10 ^3/uL (0-1.3); Monocytes % (auto) 8.1 % (0.0-12.0); Neutrophils # (auto) 5.4 10 ^3/uL (1.6-8.6); Neutrophils % (auto) 70.2 % (37.0-80.0); Platelet Count (auto) 334 10^3/uL (140-450); Red Blood Cells 4.25 10^6/uL (4.5-5.90); White Blood Cell 7.7 10^3/uL (4.4-10.8)
[2024-04-02 07:12] LABS: Anion Gap 11 (5-15); Carbon Dioxide 21 mmol/L (20-31); Chloride 102 mmol/L (98-107); Potassium 4.3 mmol/L (3.5-5.1)
[2024-04-02 07:13] LABS: Calcium 9.9 mg/dL (8.7-10.4)
[2024-04-02 07:19] LABS: BUN/Creatinine Ratio 8.1 (10.0-20.0); Blood Urea Nitrogen 22 mg/dL (9-23)
[2024-04-02 07:54] LABS: Glucose 302 mg/dL (74-106); Sodium 134 mmol/L (136-145)
[2024-04-02] MEDS: TICAGRELOR 90 MG TAB PO SCH (08:00)
--- NOTE | 2024-04-02 09:25 | DVHPN2 ---
Progress Note - Dictate Date Seen: Apr 02, 2024 Has the PT tested + for MRSA If YES, has PT been informed?: No Medical Necessity Reason Pt with a Central, PICC or Fol: No vital signs Vital Sign Date Time Temp Pulse Resp B/P (MAP) Pulse Ox O2 Delivery O2 Flow Rate FiO2 04/02/24 08:00 81 20 93 Nasal Cannula* 3 32 04/02/24 06:33 140/95 04/02/24 05:00 97.5 97.5 Total Intake and Output 04/01/24 04/01/24 04/02/24 15:00 23:00 07:00 Intake Total 1260 ml 1100 ml Balance 1260 ml 1100 ml medications Current Medications Medications Dose Ordered Sig/Prince Route Start Time Stop Time Status Last Admin Dose Admin Nitroglycerin 0.4 mg Q5MINP PRN SL 03/28/24 18:00 03/31/24 03:47 0.4 MG Morphine Sulfate 2 mg Q30M PRN IV 03/28/24 18:00 Aspirin 81 mg DAILY PO 03/29/24 10:00 04/01/24 09:12 81 MG Metoprolol Tartrate 25 mg TID PO 03/28/24 22:00 04/02/24 06:33 25 MG Tamsulosin HCl 0.4 mg DAILY PO 03/29/24 10:00 04/01/24 09:12 0.4 MG Atorvastatin Calcium 40 mg HS PO 03/28/24 22:00 04/01/24 21:10 40 MG Diagnostic Test (Pha) 1 strip ACHS 03/28/24 22:00 04/02/24 06:13 1 STRIP Insulin Human Regular HS SC 03/28/24 22:00 04/01/24 21:47 6 UNITS Insulin Human Regular AC SC 03/29/24 07:00 04/02/24 06:00 12 UNITS Dextrose 50 ml UD PRN IV 03/28/24 18:00 Pantoprazole Sodium 40 mg DAILY PO 03/29/24 10:00 04/01/24 09:12 40 MG Hydromorphone HCl 0.5 mg Q4HPRN PRN IV 03/29/24 11:30 04/01/24 21:17 0.5 MG Alprazolam 0.5 mg Q6HP PRN PO 03/31/24 10:40 04/02/24 08:38 0.5 MG Fluticasone Propionate 100 mcg DAILY EACHNOSTRI 04/01/24 14:30 Albuterol 2.5 mg Q6HWA NEB 04/01/24 18:00 04/02/24 06:49 2.5 MG Ticagrelor 90 mg BID PO 04/02/24 08:00 04/02/24 08:00 90 MG objective General Appearance: alert, no distress HEENT: EOMI, PERRLA, normal external inspect of ears, no icterus, no nasal drainage Neck: no carotid bruit, no jugular venous distention (JVD), no lymphadenopathy Chest: normal thorax Respiratory: clear to auscultation, normal air movement Cardiovascular: regular rate and rhythm, no diastolic murmur, no jugular venous distention (JVD), no rub, no systolic murmur Abdominal: soft, no hepatomegaly, no mass, no splenomegaly, no tenderness Genitourinary: grossly normal external Musculoskeletal: no joint tenderness, no swelling Extremities: normal pulses, no calf tenderness, no clubbing, no cyanosis, no edema Skin: no bruising, no jaundice, no rash Neurological: alert, No focal deficit laboratory and microbiology Laboratory Tests 04/02/24 06:14 Test 04/02/24 06:14 Range/Units Serum Glucose 302 H 74-106 mg/dL Problem List 1. Chest pain Monitor, cardiology consult, trend troponin 2. NSTEMI Monitor, cardiology consult, Heparin GTT 3. HLD Monitor 4. DM II w/ hyperglycemia Monitor, insulin SS Assessment/Plan Subjective: Patient is awake and alert. Objective: I spoke with the patients at the bedside. Patient had shortness of breath and chest pain yesterday. Elevated troponin of 7000, taken emergently to the clinical laboratory science professor for PCI to the LAD. Patient has CHAVA superimposed on CKD and severe anxiety. Patient experienced shortness of breath today and received one dose of IV Lasix. Plan: Continue IV hydration, follow nephrology recommendations, monitor I&Os, monitor daily labs, and monitor renal function. Plan discussed with: Patient, Other ISA GRANT NP Apr 02, 2024 09:25
[2024-04-02] MEDS ORDERED: SODIUM CHLORIDE 0.9% 1,000 ML IV SCH (09:30)
[2024-04-02] MEDS: FUROSEMIDE 20 MG/2 ML VIAL IV ONE (09:54)
[2024-04-02 10:00] LABS: Base Excess -2.6 mmol/L (-2.0-3.0)
[2024-04-02] MEDS: ALBUTEROL SULF 2.5 MG/0.5ML(0.5%) NEB SOLN NEB ONE (10:13)
[2024-04-02] MEDS: SODIUM BICARB 8.4% 50Meq/50ml SYR Vial IV ONE (11:15)
--- NOTE | 2024-04-02 11:27 | DVH ---
CLINICAL INFORMATION: 53 years old, Male; shortness of breath. TECHNIQUE: Single AP portable chest radiograph was obtained. COMPARISON: XY CHEST XRAY 1 VIEW on DOS: 04/01/24, XY CHEST PORTABLE on DOS: 03/28/24, XY CHEST XRAY 1 VIEW on DOS: 07/09/22 FINDINGS: Lungs: Bibasilar atelectasis without visualized consolidation. Cardiac: Mild cardiomegaly. Pulmonary vasculature: Mildly prominent pulmonary vasculature. Mediastinum/oscar: Unremarkable. Bones: No acute osseous abnormality identified. Other: No other significant findings. IMPRESSION: Mild prominence of the pulmonary vasculature with mild cardiomegaly May suggest a mild degree of pulm onary vascular congestion in the appropriate clinical setting.
--- NOTE | 2024-04-02 13:57 | DVHPN2 ---
Progress Note - Dictate Date Seen: Apr 02, 2024 Has the PT tested + for MRSA If YES, has PT been informed?: No Medical Necessity Reason Pt with a Central, PICC or Fol: No Subjective No new complaints vital signs Vital Sign Date Time Temp Pulse Resp B/P (MAP) Pulse Ox O2 Delivery O2 Flow Rate FiO2 04/02/24 13:00 98.0 97 20 104/76 (85) 96 98.0 04/02/24 10:13 Facial BiPAP Mask 04/02/24 08:00 3 Total Intake and Output 04/01/24 04/01/24 04/02/24 15:00 23:00 07:00 Intake Total 1260 ml 1100 ml Balance 1260 ml 1100 ml medications Current Medications Medications Dose Ordered Sig/Prince Route Start Time Stop Time Status Last Admin Dose Admin Nitroglycerin 0.4 mg Q5MINP PRN SL 03/28/24 18:00 03/31/24 03:47 0.4 MG Morphine Sulfate 2 mg Q30M PRN IV 03/28/24 18:00 Aspirin 81 mg DAILY PO 03/29/24 10:00 04/02/24 09:53 81 MG Metoprolol Tartrate 25 mg TID PO 03/28/24 22:00 04/02/24 06:33 25 MG Tamsulosin HCl 0.4 mg DAILY PO 03/29/24 10:00 04/02/24 09:53 0.4 MG Atorvastatin Calcium 40 mg HS PO 03/28/24 22:00 04/01/24 21:10 40 MG Diagnostic Test (Pha) 1 strip ACHS 03/28/24 22:00 04/02/24 11:30 1 STRIP Insulin Human Regular HS SC 03/28/24 22:00 04/01/24 21:47 6 UNITS Insulin Human Regular AC SC 03/29/24 07:00 04/02/24 11:30 9 UNITS Dextrose 50 ml UD PRN IV 03/28/24 18:00 Pantoprazole Sodium 40 mg DAILY PO 03/29/24 10:00 04/02/24 09:53 40 MG Hydromorphone HCl 0.5 mg Q4HPRN PRN IV 03/29/24 11:30 04/01/24 21:17 0.5 MG Alprazolam 0.5 mg Q6HP PRN PO 03/31/24 10:40 12/1/24 08:38 0.5 MG Fluticasone Propionate 100 mcg DAILY EACHNOSTRI 04/01/24 14:30 Albuterol 2.5 mg Q6HWA NEB 04/01/24 18:00 04/02/24 11:26 2.5 MG Ticagrelor 90 mg BID PO 04/02/24 08:00 04/02/24 09:54 90 MG Sodium Chloride 1,000 ml @ 75 mls/hr [id number] IV 04/02/24 09:30 objective A & O x 3 NAD Lungs CTA CV RR, no pericardial rub Abdomen soft, NT No edema laboratory and microbiology Laboratory Tests 04/02/24 06:14 Test 04/02/24 06:14 Range/Units Serum Glucose 302 H 74-106 mg/dL Problem List 1. CHAVA,GFR declined since coronary angiogram yesterday 2. Obstructive uropathy, Left hydronephrosis, but renal size is normal , and there is no evidence of obstructing stone, might have passed 3. HTN is better controlled 4. CKD3b 5. Diabetic nephropathy 6. Metabolic acidosis 7. CAD, patient had cardiac catheterization yesterday and intervention to LAD. Risk of contrast-induced nephropathy was very high, patient was aware. 8. Uncontrolled DM2 Iv Bumex x 1 Stop saline drip Daily BMP Hold ACEI for now Plan discussed with: Patient SRUTHI SERRANO MD Apr 02, 2024 13:57
[2024-04-02] MEDS: BUMETANIDE 2.5mg/10ml (0.25 mg/ml) INJ IV ONE (14:00)
--- NOTE | 2024-04-02 16:43 | DVHPN2 ---
Progress Note - Dictate Date Seen: Apr 02, 2024 Has the PT tested + for MRSA If YES, has PT been informed?: No Medical Necessity Reason Pt with a Central, PICC or Fol: No Subjective Patient was seen and evaluated in follow up. Patient is complaining of generalized pain. Patient is s/p PCI to 95% ruptured LAD ulcerated plaque. Patient has been advised for aggressive risk factor modification and medical management. DAPT x 1 year uninterrupted, high dose statin. The patient is very high risk for future cv events. vital signs Vital Sign Date Time Temp Pulse Resp B/P (MAP) Pulse Ox O2 Delivery O2 Flow Rate FiO2 04/02/24 13:00 98.0 97 20 104/76 (85) 96 98.0 04/02/24 10:13 Facial BiPAP Mask 04/02/24 08:00 3 Total Intake and Output 04/01/24 04/01/24 04/02/24 15:00 23:00 07:00 Intake Total 1260 ml 1100 ml Balance 1260 ml 1100 ml medications Current Medications Medications Dose Ordered Sig/Prince Route Start Time Stop Time Status Last Admin Dose Admin Nitroglycerin 0.4 mg Q5MINP PRN SL 03/28/24 18:00 03/31/24 03:47 0.4 MG Morphine Sulfate 2 mg Q30M PRN IV 03/28/24 18:00 Aspirin 81 mg DAILY PO 03/29/24 10:00 04/02/24 09:53 81 MG Metoprolol Tartrate 25 mg TID PO 03/28/24 22:00 04/02/24 06:33 25 MG Tamsulosin HCl 0.4 mg DAILY PO 03/29/24 10:00 04/02/24 09:53 0.4 MG Atorvastatin Calcium 40 mg HS PO 03/28/24 22:00 04/01/24 21:10 40 MG Diagnostic Test (Pha) 1 strip ACHS 03/28/24 22:00 04/02/24 11:30 1 STRIP Insulin Human Regular HS SC 03/28/24 22:00 04/01/24 21:47 6 UNITS Insulin Human Regular AC SC 03/29/24 07:00 04/02/24 11:30 9 UNITS Dextrose 50 ml UD PRN IV 03/28/24 18:00 Pantoprazole Sodium 40 mg DAILY PO 03/29/24 10:00 04/02/24 09:53 40 MG Hydromorphone HCl 0.5 mg Q4HPRN PRN IV 03/29/24 11:30 04/01/24 21:17 0.5 MG Alprazolam 0.5 mg Q6HP PRN PO 03/31/24 10:40 04/02/24 08:38 0.5 MG Fluticasone Propionate 100 mcg DAILY EACHNOSTRI 04/01/24 14:30 Albuterol 2.5 mg Q6HWA NEB 04/01/24 18:00 04/02/24 11:26 2.5 MG Ticagrelor 90 mg BID PO 04/02/24 08:00 04/02/24 09:54 90 MG Sodium Chloride 1,000 ml @ 75 mls/hr [id number] IV 04/02/24 09:30 objective GENERAL: Awake, alert, oriented. LUNGS: Clear. CARDIOVASCULAR: Heart sounds are good. ABDOMEN: Soft. laboratory and microbiology Laboratory Tests 04/02/24 06:14 Test 04/02/24 06:14 Range/Units Serum Glucose 302 H 74-106 mg/dL Problem List NSTEMI. Chest pain. HLD. DM II w/ hyperglycemia. Assessment/Plan Continued all current supportive medical care. Dilaudid for pain management. Heparin drip per pharmacy protocol. Aspirin, Lipitor, Metoprolol. Nitro SL. Lisinopril. GI prophylactics. Additional plan as per the hospital course. Plan discussed with: Patient VALERIE MCBRIDE MD Apr 02, 2024 13:41
[2024-04-02] MEDS ORDERED: diphenhdrAMINE HCL 50 MG/1 ML VL IM ONE (20:00)
[2024-04-02] MEDS: diphenhdrAMINE HCL 50 MG/1 ML VL IV ONE (20:41)
--- NOTE | 2024-04-02 23:36 | DVHPN2 ---
Progress Note - Dictate Date Seen: Apr 02, 2024 Has the PT tested + for MRSA If YES, has PT been informed?: No Medical Necessity Reason Pt with a Central, PICC or Fol: No Subjective Patient seen and examined at bedside. Remains on supplemental oxygen Overnight events reviewed. vital signs Vital Sign Date Time Temp Pulse Resp B/P (MAP) Pulse Ox O2 Delivery O2 Flow Rate FiO2 04/02/24 22:21 94 95 04/02/24 21:00 98.7 20 109/81 (90) 98.7 04/02/24 18:36 Room Air 04/02/24 18:36 0 21 Total Intake and Output 04/01/24 04/01/24 04/02/24 14:59 22:59 06:59 Intake Total 1260 ml 1100 ml Balance 1260 ml 1100 ml medications Current Medications Medications Dose Ordered Sig/Prince Route Start Time Stop Time Status Last Admin Dose Admin Nitroglycerin 0.4 mg Q5MINP PRN SL 03/28/24 18:00 03/31/24 03:47 0.4 MG Morphine Sulfate 2 mg Q30M PRN IV 03/28/24 18:00 Aspirin 81 mg DAILY PO 03/29/24 10:00 04/02/24 09:53 81 MG Metoprolol Tartrate 25 mg TID PO 03/28/24 22:00 04/02/24 14:00 25 MG Tamsulosin HCl 0.4 mg DAILY PO 03/29/24 10:00 04/02/24 09:53 0.4 MG Atorvastatin Calcium 40 mg HS PO 03/28/24 22:00 04/01/24 21:10 40 MG Diagnostic Test (Pha) 1 strip ACHS 03/28/24 22:00 04/02/24 21:38 1 STRIP Insulin Human Regular HS SC 03/28/24 22:00 04/02/24 21:37 6 UNITS Insulin Human Regular AC SC 03/29/24 07:00 04/02/24 17:00 8 UNITS Dextrose 50 ml UD PRN IV 03/28/24 18:00 Pantoprazole Sodium 40 mg DAILY PO 03/29/24 10:00 04/02/24 09:53 40 MG Hydromorphone HCl 0.5 mg Q4HPRN PRN IV 03/29/24 11:30 04/01/24 21:17 0.5 MG Alprazolam 0.5 mg Q6HP PRN PO 03/31/24 10:40 04/02/24 08:38 0.5 MG Fluticasone Propionate 100 mcg DAILY EACHNOSTRI 04/01/24 14:30 Albuterol 2.5 mg Q6HWA NEB 04/01/24 18:00 04/02/24 18:35 2.5 MG Ticagrelor 90 mg BID PO 04/02/24 08:00 04/02/24 09:54 90 MG objective Gen.: Patient lying in bed in no apparent distress. On supplemental oxygen. Head: Normocephalic, atraumatic. Eyes: EOMI/PERRLA. Ears: Normal hearing. Normal anatomy. Neck/trachea: Trachea midline, supple. Nose: Normal external anatomy. Mouth: Moist mucous membranes. Chest: Decreased air entry bilaterally. No wheezing or rhonchi. Cardiovascular: Positive S1, positive S2. Regular rate and rhythm. Abdomen: Positive bowel sounds in all 4 quadrants. Soft, non-tender, non- distended. : Deferred. Rectal: Deferred. Skin: Warm, dry. Intact. Extremities: 2+ radial pulses bilaterally. No lower extremity edema. Neuro: Awake, alert, oriented x3. No gross motor or sensory deficits. Cranial nerves II through XII intact. Gait not assessed. laboratory and microbiology Laboratory Tests 04/02/24 06:14 Test 04/02/24 06:14 Range/Units Serum Glucose 302 H 74-106 mg/dL Assessment/Plan Impression: Acute hypoxic respiratory failure CAD s/p PCI NSTEMI Obesity BMI 34.1 Atelectasis Elevated troponin Leucocytosis, resolved Events: Remains on supplemental oxygen, 3 LPM NC Taper O2 as tolerated CXR demonstrates mild pulmonary vascular congestion. WBC is within normal limits. Continue bronchodilators Received Bumex/Lasix for diuresis. Monitor renal function Monitor electrolytes. Supplement as necessary. Monitor ins and outs. GI prophylaxis w/ Protonix Labs and imaging reviewed. Rest of plan as noted below. Plan: Supplemental oxygen Keep o2 saturation above 92% ABG reviewed. Compensated Bronchodilators Flonase nasal spray Cardiology recommendations appreciated s/p Cardiac cath. Brillinta Monitor renal function Monitor electrolytes Supplement as necessary. Monitor ins/outs F/u Nephrology recommendations Obesity, complicates all care Diet and lifestyle modifications for weight reduction. Accucheks, ISS DVT prophylaxis. GI prophylaxis - Protonix Prognosis: Guarded given patient's multiple co-morbidities. Rest of plan per hospitalist and other consultants. Thank you Fabi Julio NP, for allowing me to participate in this patient's care. Further recommendations will depend on the patient's clinical course. Please do not hesitate to contact me if you have any questions or concerns. This medical document was created using an electronic medical record system with [employer] dictation system. Although these documentations are being carefully reviewed, there may still be some phonetic and typographical changes. The errors are purely typographical, due to imperfection on the software program, and do not reflect any compromise in the patient's medical care. Dietary Evaluation Review Comments: 1. Continue current diet regime when appropriate Expected Outcomes/Goals: 1. Pt will consume >75% within 3-5 days Plan discussed with: Patient, Other (RN) VANDANA BYRNE MD Apr 02, 2024 23:36
[2024-04-03] VITALS (15 sets, daily range): BP systolic 116–147; BP diastolic 79–97; PULSE 71–103; RESP 12–20; TEMP 97.9–98.9; O2SAT 93–99
--- NOTE | 2024-04-03 09:20 | DVH ---
INDICATION: hydronephrosis TECHNIQUE: Multiple real-time sonographic images of the kidneys and bladder were obtained. COMPARISON: US KIDNEY on DOS: 03/29/24 FINDINGS: The right kidney measures 9.9 cm in length, which is normal in size. There is increased echogenicity of the right kidney. No hydronephrosis. The left kidney measures 10.9 cm in length, which is normal in size. There is increased echogenicity of the left kidney. Minimal left hydronephrosis. There are nonobstructive left renal calcifications m easuring up to 0.4 cm. No large intraluminal masses are seen in the bladder. Prior to voiding the bladder volume measures volume 380 cc. Following voiding, the bladder volume residual measures 0 cc. Incidentally increased echogenicity of the liver suggestive of fatty infiltration IMPRESSION: Minimal left hydronephrosis. Nonobstructive left renal calcifications measuring up to 0.4 cm.
--- NOTE | 2024-04-03 11:12 | DVHPN2 ---
Progress Note - Dictate Date Seen: Apr 03, 2024 Has the PT tested + for MRSA If YES, has PT been informed?: No Medical Necessity Reason Pt with a Central, PICC or Fol: No vital signs Vital Sign Date Time Temp Pulse Resp B/P (MAP) Pulse Ox O2 Delivery O2 Flow Rate FiO2 04/03/24 09:00 98.0 97 17 116/85 (95) 93 98.0 04/03/24 06:50 Room Air* 0 21 Total Intake and Output 04/02/24 04/02/24 04/03/24 15:00 23:00 07:00 Intake Total 840 ml Balance 840 ml medications Current Medications Medications Dose Ordered Sig/Prince Route Start Time Stop Time Status Last Admin Dose Admin Nitroglycerin 0.4 mg Q5MINP PRN SL 03/28/24 18:00 03/31/24 03:47 0.4 MG Morphine Sulfate 2 mg Q30M PRN IV 03/28/24 18:00 Aspirin 81 mg DAILY PO 03/29/24 10:00 04/03/24 08:51 81 MG Metoprolol Tartrate 25 mg TID PO 03/28/24 22:00 04/03/24 06:00 25 MG Tamsulosin HCl 0.4 mg DAILY PO 03/29/24 10:00 04/03/24 08:51 0.4 MG Atorvastatin Calcium 40 mg HS PO 03/28/24 22:00 04/01/24 21:10 40 MG Diagnostic Test (Pha) 1 strip ACHS 03/28/24 22:00 04/03/24 06:45 1 STRIP Insulin Human Regular HS SC 03/28/24 22:00 04/02/24 21:37 6 UNITS Insulin Human Regular AC SC 03/29/24 07:00 04/03/24 06:27 6 UNITS Dextrose 50 ml UD PRN IV 03/28/24 18:00 Pantoprazole Sodium 40 mg DAILY PO 03/29/24 10:00 04/03/24 08:51 40 MG Hydromorphone HCl 0.5 mg Q4HPRN PRN IV 03/29/24 11:30 04/01/24 21:17 0.5 MG Alprazolam 0.5 mg Q6HP PRN PO 03/31/24 10:40 04/02/24 08:38 0.5 MG Fluticasone Propionate 100 mcg DAILY EACHNOSTRI 04/01/24 14:30 Albuterol 2.5 mg Q6HWA NEB 04/01/24 18:00 04/03/24 06:50 2.5 MG Ticagrelor 90 mg BID PO 04/02/24 08:00 04/03/24 08:51 90 MG objective General Appearance: alert, no distress HEENT: EOMI, PERRLA, normal external inspect of ears, no icterus, no nasal drainage Neck: no carotid bruit, no jugular venous distention (JVD), no lymphadenopathy Chest: normal thorax Respiratory: clear to auscultation, normal air movement Cardiovascular: regular rate and rhythm, no diastolic murmur, no jugular venous distention (JVD), no rub, no systolic murmur Abdominal: soft, no hepatomegaly, no mass, no splenomegaly, no tenderness Genitourinary: grossly normal external Musculoskeletal: no joint tenderness, no swelling Extremities: normal pulses, no calf tenderness, no clubbing, no cyanosis, no edema Skin: no bruising, no jaundice, no rash Neurological: alert, No focal deficit laboratory and microbiology Laboratory Tests 04/02/24 06:14 Test 04/02/24 06:14 Range/Units Serum Glucose 302 H 74-106 mg/dL Problem List 1. Chest pain Monitor, cardiology consult, trend troponin 2. NSTEMI Monitor, cardiology consult, Heparin GTT 3. HLD Monitor 4. DM II w/ hyperglycemia Monitor, insulin SS Assessment/Plan Subjective Patient is awake and alert. Objective Patient was admitted as a NSTEMI. Patient apparently had 95% ruptured LAD plaque. Patient was taken to [facility] for angiogram by Dr. Fuchs. Patient had an CHAVA superimposed on CKD with worsening kidney function. Now that he had an angiogram IV fluids were started and patient has been followed by nephrology. Nephrology advised against angiogram however patient had an acute episode of shortness of breath and his repeat troponin level dolores from 500-7000. Plan Continue current treatment. Patient will need dual antiplatelet therapy uninterrupted for 1 year. Monitor renal function closely. Patient will need to be hospitalized for additional 2-3 more days to monitor renal function. Dietary Evaluation Review Comments: 1. Continue current diet regime when appropriate Expected Outcomes/Goals: 1. Pt will consume >75% within 3-5 days Plan discussed with: Patient, Other ISA GRANT [employer] Apr 03, 2024 11:12
[2024-04-03 12:20] LABS: Chloride 99 mmol/L (98-107); Potassium 4.3 mmol/L (3.5-5.1); Sodium 134 mmol/L (136-145)
[2024-04-03 12:21] LABS: Anion Gap 11 (5-15); Carbon Dioxide 24 mmol/L (20-31)
[2024-04-03 12:22] LABS: Calcium 9.8 mg/dL (8.7-10.4)
[2024-04-03 12:26] LABS: BUN/Creatinine Ratio 7.5 (10.0-20.0); Blood Urea Nitrogen 25 mg/dL (9-23); Glucose 350 mg/dL (74-106)
--- NOTE | 2024-04-03 16:01 | DVHPN2 ---
Progress Note - Dictate Date Seen: Apr 03, 2024 Has the PT tested + for MRSA If YES, has PT been informed?: No Medical Necessity Reason Pt with a Central, PICC or Fol: No Subjective complains of poor appetite. urine out put not recorded, but states he makes a lot of urine. vital signs Vital Sign Date Time Temp Pulse Resp B/P (MAP) Pulse Ox O2 Delivery O2 Flow Rate FiO2 04/03/24 15:04 81 18 107/79 04/03/24 13:00 98.4 93 98.4 04/03/24 12:04 Room Air 0.0 04/03/24 12:04 21 Total Intake and Output 04/02/24 04/02/24 04/03/24 15:00 23:00 07:00 Intake Total 840 ml Balance 840 ml medications Current Medications Medications Dose Ordered Sig/Prince Route Start Time Stop Time Status Last Admin Dose Admin Nitroglycerin 0.4 mg Q5MINP PRN SL 03/28/24 18:00 03/31/24 03:47 0.4 MG Morphine Sulfate 2 mg Q30M PRN IV 03/28/24 18:00 Aspirin 81 mg DAILY PO 03/29/24 10:00 04/03/24 08:51 81 MG Metoprolol Tartrate 25 mg TID PO 03/28/24 22:00 04/03/24 15:04 25 MG Tamsulosin HCl 0.4 mg DAILY PO 03/29/24 10:00 04/03/24 08:51 0.4 MG Atorvastatin Calcium 40 mg HS PO 03/28/24 22:00 04/01/24 21:10 40 MG Diagnostic Test (Pha) 1 strip ACHS 03/28/24 22:00 04/03/24 12:30 1 STRIP Insulin Human Regular HS SC 03/28/24 22:00 04/02/24 21:37 6 UNITS Insulin Human Regular AC SC 03/29/24 07:00 04/03/24 12:30 12 UNITS Dextrose 50 ml UD PRN IV 03/28/24 18:00 Pantoprazole Sodium 40 mg DAILY PO 03/29/24 10:00 04/03/24 08:51 40 MG Hydromorphone HCl 0.5 mg Q4HPRN PRN IV 03/29/24 11:30 04/03/24 14:34 0.5 MG Alprazolam 0.5 mg Q6HP PRN PO 03/31/24 10:40 04/02/24 08:38 0.5 MG Fluticasone Propionate 100 mcg DAILY EACHNOSTRI 04/01/24 14:30 Albuterol 2.5 mg Q6HWA NEB 04/01/24 18:00 04/03/24 12:04 2.5 MG Ticagrelor 90 mg BID PO 04/02/24 08:00 04/03/24 08:51 90 MG objective Gen: NAD HEENT: NC, AT Lungs: CTA b/l Cardiac: RRR, no murmur Abd: soft, no tenderness Ext: no edema Neuro: AAOx3, no focal deficits. laboratory and microbiology Laboratory Tests 04/03/24 00:00 04/02/24 06:14 Test 04/03/24 00:00 Range/Units Serum Glucose 350 H 74-106 mg/dL Assessment/Plan Assessment: 1. CHAVA, secondary to contrast induced nephropathy 2. Obstructive uropathy, Left hydronephrosis, but renal size is normal 3. HTN is better controlled 4. CKD3b 5. Diabetic nephropathy 6. Metabolic acidosis 7. CAD, patient had cardiac catheterization yesterday and intervention to LAD. Risk of contrast-induced nephropathy was very high, patient was aware. 8. Uncontrolled DM2 Plan: GFR is worsening spoke with RN, need accurate urine output measurement reviewed renal US on 04/03. unremarkable. there is minimal Lt hydronephrosis, and non-obstructive Lt stone (0.4 cm) there is mild pulm congestion., will use loop diuretics prn Daily BMP Hold ACEI for now Dietary Evaluation Review Comments: 1. Continue current diet regime when appropriate Expected Outcomes/Goals: 1. Pt will consume >75% within 3-5 days Plan discussed with: Patient, Other RICARDO DUARTE MD Apr 03, 2024 16:01
--- NOTE | 2024-04-03 18:18 | DVHPN2 ---
Progress Note - Dictate Date Seen: Apr 03, 2024 Has the PT tested + for MRSA If YES, has PT been informed?: No Medical Necessity Reason Pt with a Central, PICC or Fol: No Subjective Patient was seen and evaluated in follow up. Patient is complaining of generalized pain. Denies any chest pain. Patient has poor appetite. BUN 25, Teletypesetter Monitor 3.34. Renal US shows minimal left hydronephrosis. Nonobstructive left renal calcifications measuring up to 0.4 cm. vital signs Vital Sign Date Time Temp Pulse Resp B/P (MAP) Pulse Ox O2 Delivery O2 Flow Rate FiO2 04/03/24 16:04 71 131/79 04/03/24 15:04 18 04/03/24 13:00 98.4 93 98.4 04/03/24 12:04 Room Air 0.0 04/03/24 12:04 21 Total Intake and Output 04/02/24 04/02/24 04/03/24 15:00 23:00 07:00 Intake Total 840 ml Balance 840 ml medications Current Medications Medications Dose Ordered Sig/Prince Route Start Time Stop Time Status Last Admin Dose Admin Nitroglycerin 0.4 mg Q5MINP PRN SL 03/28/24 18:00 03/31/24 03:47 0.4 MG Morphine Sulfate 2 mg Q30M PRN IV 03/28/24 18:00 Aspirin 81 mg DAILY PO 03/29/24 10:00 04/03/24 08:51 81 MG Metoprolol Tartrate 25 mg TID PO 03/28/24 22:00 04/03/24 15:04 25 MG Tamsulosin HCl 0.4 mg DAILY PO 03/29/24 10:00 04/03/24 08:51 0.4 MG Atorvastatin Calcium 40 mg HS PO 03/28/24 22:00 04/01/24 21:10 40 MG Diagnostic Test (Pha) 1 strip ACHS 03/28/24 22:00 04/03/24 17:03 1 STRIP Insulin Human Regular HS SC 03/28/24 22:00 04/02/24 21:37 6 UNITS Insulin Human Regular AC SC 03/29/24 07:00 04/03/24 16:56 6 UNITS Dextrose 50 ml UD PRN IV 03/28/24 18:00 Pantoprazole Sodium 40 mg DAILY PO 03/29/24 10:00 04/03/24 08:51 40 MG Hydromorphone HCl 0.5 mg Q4HPRN PRN IV 03/29/24 11:30 04/03/24 14:34 0.5 MG Alprazolam 0.5 mg Q6HP PRN PO 03/31/24 10:40 04/02/24 08:38 0.5 MG Fluticasone Propionate 100 mcg DAILY EACHNOSTRI 04/01/24 14:30 Albuterol 2.5 mg Q6HWA NEB 04/01/24 18:00 04/03/24 12:04 2.5 MG Ticagrelor 90 mg BID PO 04/02/24 08:00 04/03/24 08:51 90 MG objective GENERAL: Awake, alert, oriented. LUNGS: Clear. CARDIOVASCULAR: Heart sounds are good. ABDOMEN: Soft. laboratory and microbiology Laboratory Tests 04/03/24 00:00 04/02/24 06:14 Test 04/03/24 00:00 Range/Units Serum Glucose 350 H 74-106 mg/dL Problem List NSTEMI. Chest pain. HLD. DM II w/ hyperglycemia. Assessment/Plan Continued all current supportive medical care. Dilaudid for pain management. Heparin drip per pharmacy protocol. Aspirin, Lipitor, Metoprolol. Nitro SL. Lisinopril. GI prophylactics. Additional plan as per the hospital course. Dietary Evaluation Review Comments: 1. Continue current diet regime when appropriate Expected Outcomes/Goals: 1. Pt will consume >75% within 3-5 days Plan discussed with: Patient VALERIE MCBRIDE MD Apr 03, 2024 18:18
--- NOTE | 2024-04-03 21:02 | DVHPN2 ---
Progress Note - Dictate Date Seen: Apr 03, 2024 Has the PT tested + for MRSA If YES, has PT been informed?: No Medical Necessity Reason Pt with a Central, PICC or Fol: No Subjective Patient seen and examined at bedside. Breathing on room air. Overnight events reviewed. vital signs Vital Sign Date Time Temp Pulse Resp B/P (MAP) Pulse Ox O2 Delivery O2 Flow Rate FiO2 04/03/24 20:32 82 18 131/80 04/03/24 17:00 98.5 95 98.5 04/03/24 12:04 Room Air 0.0 04/03/24 12:04 21 Total Intake and Output 04/02/24 04/02/24 04/03/24 15:00 23:00 07:00 Intake Total 840 ml Balance 840 ml medications Current Medications Medications Dose Ordered Sig/Prince Route Start Time Stop Time Status Last Admin Dose Admin Nitroglycerin 0.4 mg Q5MINP PRN SL 03/28/24 18:00 03/31/24 03:47 0.4 MG Morphine Sulfate 2 mg Q30M PRN IV 03/28/24 18:00 Aspirin 81 mg DAILY PO 03/29/24 10:00 04/03/24 08:51 81 MG Metoprolol Tartrate 25 mg TID PO 03/28/24 22:00 04/03/24 15:04 25 MG Tamsulosin HCl 0.4 mg DAILY PO 03/29/24 10:00 04/03/24 08:51 0.4 MG Atorvastatin Calcium 40 mg HS PO 03/28/24 22:00 04/01/24 21:10 40 MG Diagnostic Test (Pha) 1 strip ACHS 03/28/24 22:00 04/03/24 17:03 1 STRIP Insulin Human Regular HS SC 03/28/24 22:00 04/02/24 21:37 6 UNITS Insulin Human Regular AC SC 03/29/24 07:00 04/03/24 16:56 6 UNITS Dextrose 50 ml UD PRN IV 03/28/24 18:00 Pantoprazole Sodium 40 mg DAILY PO 03/29/24 10:00 04/03/24 08:51 40 MG Hydromorphone HCl 0.5 mg Q4HPRN PRN IV 03/29/24 11:30 04/03/24 20:32 0.5 MG Alprazolam 0.5 mg Q6HP PRN PO 03/31/24 10:40 04/02/24 08:38 0.5 MG Fluticasone Propionate 100 mcg DAILY EACHNOSTRI 04/01/24 14:30 Albuterol 2.5 mg Q6HWA NEB 04/01/24 18:00 04/03/24 19:06 2.5 MG Ticagrelor 90 mg BID PO 04/02/24 08:00 04/03/24 08:51 90 MG objective Gen.: Patient lying in bed in no apparent distress. Breathing on room air. Head: Normocephalic, atraumatic. Eyes: EOMI/PERRLA. Ears: Normal hearing. Normal anatomy. Neck/trachea: Trachea midline, supple. Nose: Normal external anatomy. Mouth: Moist mucous membranes. Chest: Decreased air entry bilaterally. No wheezing or rhonchi. Cardiovascular: Positive S1, positive S2. Regular rate and rhythm. Abdomen: Positive bowel sounds in all 4 quadrants. Soft, non-tender, non- distended. : Deferred. Rectal: Deferred. Skin: Warm, dry. Intact. Extremities: 2+ radial pulses bilaterally. No lower extremity edema. Neuro: Awake, alert, oriented x3. No gross motor or sensory deficits. Cranial nerves II through XII intact. Gait not assessed. laboratory and microbiology Laboratory Tests 04/03/24 00:00 04/02/24 06:14 Test 04/03/24 00:00 Range/Units Serum Glucose 350 H 74-106 mg/dL Assessment/Plan Impression: Acute hypoxic respiratory failure CAD s/p PCI NSTEMI Obesity BMI 34.1 Atelectasis Elevated troponin Leucocytosis, resolved Possible ZONIA Events: Breathing on room air No respiratory distress. BiPAP at night. Recommend outpatient evaluation for ZONIA. STOP-BANG score of 5. Resume nystatin. CXR demonstrates mild pulmonary vascular congestion. Continue bronchodilators Monitor renal function Monitor electrolytes. Supplement as necessary. Monitor ins and outs. F/u Nephrology recommendations GI prophylaxis w/ Protonix Labs and imaging reviewed. Rest of plan as noted below. Plan: Supplemental oxygen PRN Keep o2 saturation above 92% BiPAP at night. Bronchodilators Flonase nasal spray Cardiology recommendations appreciated s/p Cardiac cath. Brillinta Monitor renal function Monitor electrolytes Supplement as necessary. Monitor ins/outs F/u Nephrology recommendations Obesity, complicates all care Diet and lifestyle modifications for weight reduction. Recommend outpatient evaluation for ZONIA Pt has several risk factors for ZONIA. Accucheks, ISS DVT prophylaxis. GI prophylaxis - Protonix Prognosis: Guarded given patient's multiple co-morbidities. Rest of plan per hospitalist and other consultants. Thank you Fabi Julio NP, for allowing me to participate in this patient's care. Further recommendations will depend on the patient's clinical course. Please do not hesitate to contact me if you have any questions or concerns. This medical document was created using an electronic medical record system with [employer] dictation system. Although these documentations are being carefully reviewed, there may still be some phonetic and typographical changes. The errors are purely typographical, due to imperfection on the software program, and do not reflect any compromise in the patient's medical care. Dietary Evaluation Review Comments: 1. Continue current diet regime when appropriate Expected Outcomes/Goals: 1. Pt will consume >75% within 3-5 days Plan discussed with: Patient, Other (STEPHANY Herrera) VANDANA BYRNE MD Apr 03, 2024 21:02
[2024-04-04] VITALS (16 sets, daily range): BP systolic 124–180; BP diastolic 66–90; PULSE 73–93; RESP 14–22; TEMP 97.6–98.2; O2SAT 92–100
--- NOTE | 2024-04-04 13:48 | DVHPN2 ---
Progress Note - Dictate Date Seen: Apr 04, 2024 Has the PT tested + for MRSA If YES, has PT been informed?: No Medical Necessity Reason Pt with a Central, PICC or Fol: No vital signs Vital Sign Date Time Temp Pulse Resp B/P (MAP) Pulse Ox O2 Delivery O2 Flow Rate FiO2 04/04/24 12:55 86 14 100 04/04/24 12:49 Room Air* 0 21 04/04/24 11:40 129/72 04/04/24 09:00 98.0 98.0 Total Intake and Output 04/03/24 04/03/24 04/04/24 15:00 23:00 07:00 Intake Total 550 ml 980 ml Output Total 850 ml 700 ml Balance -300 ml 280 ml medications Current Medications Medications Dose Ordered Sig/Prince Route Start Time Stop Time Status Last Admin Dose Admin Nitroglycerin 0.4 mg Q5MINP PRN SL 03/28/24 18:00 03/31/24 03:47 0.4 MG Morphine Sulfate 2 mg Q30M PRN IV 03/28/24 18:00 Aspirin 81 mg DAILY PO 03/29/24 10:00 04/04/24 08:44 81 MG Metoprolol Tartrate 25 mg TID PO 03/28/24 22:00 04/04/24 06:08 25 MG Tamsulosin HCl 0.4 mg DAILY PO 03/29/24 10:00 04/04/24 08:44 0.4 MG Atorvastatin Calcium 40 mg HS PO 03/28/24 22:00 04/03/24 21:53 40 MG Diagnostic Test (Pha) 1 strip ACHS 03/28/24 22:00 04/04/24 11:40 1 STRIP Insulin Human Regular HS SC 03/28/24 22:00 04/03/24 22:01 6 UNITS Insulin Human Regular AC SC 03/29/24 07:00 04/04/24 11:51 9 UNITS Dextrose 50 ml UD PRN IV 03/28/24 18:00 Pantoprazole Sodium 40 mg DAILY PO 03/29/24 10:00 04/04/24 08:44 40 MG Hydromorphone HCl 0.5 mg Q4HPRN PRN IV 03/29/24 11:30 04/04/24 11:40 0.5 MG Alprazolam 0.5 mg Q6HP PRN PO 03/31/24 10:40 04/02/24 08:38 0.5 MG Fluticasone Propionate 100 mcg DAILY EACHNOSTRI 04/01/24 14:30 Albuterol 2.5 mg Q6HWA NEB 04/01/24 18:00 04/04/24 12:49 2.5 MG Ticagrelor 90 mg BID PO 04/02/24 08:00 04/04/24 08:44 90 MG objective General Appearance: alert, no distress HEENT: EOMI, PERRLA, normal external inspect of ears, no icterus, no nasal drainage Neck: no carotid bruit, no jugular venous distention (JVD), no lymphadenopathy Chest: normal thorax Respiratory: clear to auscultation, normal air movement Cardiovascular: regular rate and rhythm, no diastolic murmur, no jugular venous distention (JVD), no rub, no systolic murmur Abdominal: soft, no hepatomegaly, no mass, no splenomegaly, no tenderness Genitourinary: grossly normal external Musculoskeletal: no joint tenderness, no swelling Extremities: normal pulses, no calf tenderness, no clubbing, no cyanosis, no edema Skin: no bruising, no jaundice, no rash Neurological: alert, No focal deficit laboratory and microbiology Laboratory Tests 04/03/24 00:00 04/02/24 06:14 Test 04/03/24 00:00 Range/Units Serum Glucose 350 H 74-106 mg/dL Problem List 1. Chest pain Monitor, cardiology consult, trend troponin 2. NSTEMI Monitor, cardiology consult, Heparin GTT 3. HLD Monitor 4. DM II w/ hyperglycemia Monitor, insulin SS Assessment/Plan Subjective Patient is awake and alert. Objective Patient was admitted as an NSTEMI. He is status post heart cath. Patient has an CHAVA superimposed on CKD. Creatinine was elevated. Repeat labs are still pending today. Plan Continue current treatment. Nephrology has been following patient. Monitor EKG. Monitor INOs. Dietary Evaluation Review Comments: 1. Continue current diet regime when appropriate Expected Outcomes/Goals: 1. Pt will consume >75% within 3-5 days Plan discussed with: Patient, Other ISA GRANT NP Apr 04, 2024 13:48
[2024-04-04 15:52] LABS: Chloride 101 mmol/L (98-107); Potassium 3.9 mmol/L (3.5-5.1)
[2024-04-04 15:53] LABS: Anion Gap 11 (5-15); Calcium 9.8 mg/dL (8.7-10.4); Carbon Dioxide 22 mmol/L (20-31)
[2024-04-04 16:05] LABS: Blood Urea Nitrogen 28 mg/dL (9-23); Glucose 260 mg/dL (74-106); Sodium 134 mmol/L (136-145)
--- NOTE | 2024-04-04 18:43 | DVHPN2 ---
Progress Note - Dictate Date Seen: Apr 04, 2024 Has the PT tested + for MRSA If YES, has PT been informed?: No Medical Necessity Reason Pt with a Central, PICC or Fol: No Subjective Patient was seen and evaluated in follow up. Patient is complaining of generalized pain. Denies any chest pain. Patient is stable on room air. BUN 28, Professor Sculpture 3.52. vital signs Vital Sign Date Time Temp Pulse Resp B/P (MAP) Pulse Ox O2 Delivery O2 Flow Rate FiO2 04/04/24 16:43 81 124/66 04/04/24 16:15 98.2 18 96 98.2 04/04/24 12:49 Room Air* 0 21 Total Intake and Output 04/03/24 04/03/24 04/04/24 15:00 23:00 07:00 Intake Total 550 ml 980 ml Output Total 850 ml 700 ml Balance -300 ml 280 ml medications Current Medications Medications Dose Ordered Sig/Prince Route Start Time Stop Time Status Last Admin Dose Admin Nitroglycerin 0.4 mg Q5MINP PRN SL 03/28/24 18:00 03/31/24 03:47 0.4 MG Morphine Sulfate 2 mg Q30M PRN IV 03/28/24 18:00 Aspirin 81 mg DAILY PO 03/29/24 10:00 04/04/24 08:44 81 MG Metoprolol Tartrate 25 mg TID PO 03/28/24 22:00 04/04/24 15:43 25 MG Tamsulosin HCl 0.4 mg DAILY PO 03/29/24 10:00 04/04/24 08:44 0.4 MG Atorvastatin Calcium 40 mg HS PO 03/28/24 22:00 04/03/24 21:53 40 MG Diagnostic Test (Pha) 1 strip ACHS 03/28/24 22:00 04/04/24 16:39 1 STRIP Insulin Human Regular HS SC 03/28/24 22:00 04/03/24 22:01 6 UNITS Insulin Human Regular AC SC 03/29/24 07:00 04/04/24 16:45 9 UNITS Dextrose 50 ml UD PRN IV 03/28/24 18:00 Pantoprazole Sodium 40 mg DAILY PO 03/29/24 10:00 04/04/24 08:44 40 MG Hydromorphone HCl 0.5 mg Q4HPRN PRN IV 03/29/24 11:30 04/04/24 11:40 0.5 MG Alprazolam 0.5 mg Q6HP PRN PO 03/31/24 10:40 04/02/24 08:38 0.5 MG Fluticasone Propionate 100 mcg DAILY EACHNOSTRI 04/01/24 14:30 Albuterol 2.5 mg Q6HWA NEB 04/01/24 18:00 04/04/24 12:49 2.5 MG Ticagrelor 90 mg BID PO 04/02/24 08:00 04/04/24 08:44 90 MG objective GENERAL: Awake, alert, oriented. LUNGS: Clear. CARDIOVASCULAR: Heart sounds are good. ABDOMEN: Soft. laboratory and microbiology Laboratory Tests 04/04/24 15:23 04/02/24 06:14 Test 04/04/24 15:23 Range/Units Serum Glucose 260 H 74-106 mg/dL Problem List NSTEMI. Chest pain. HLD. DM II w/ hyperglycemia. Assessment/Plan Continued all current supportive medical care. Dilaudid for pain management. Heparin drip per pharmacy protocol. Aspirin, Lipitor, Metoprolol. Nitro SL. Lisinopril. GI prophylactics. Additional plan as per the hospital course. Dietary Evaluation Review Comments: 1. Continue current diet regime when appropriate Expected Outcomes/Goals: 1. Pt will consume >75% within 3-5 days Plan discussed with: Patient VALERIE MCBRIDE MD Apr 04, 2024 18:43
--- NOTE | 2024-04-04 20:55 | DVHPN2 ---
Progress Note - Dictate Date Seen: Apr 04, 2024 Has the PT tested + for MRSA If YES, has PT been informed?: No Medical Necessity Reason Pt with a Central, PICC or Fol: No Subjective complains of poor appetite. urine out put not recorded, but states he makes a lot of urine. vital signs Vital Sign Date Time Temp Pulse Resp B/P (MAP) Pulse Ox O2 Delivery O2 Flow Rate FiO2 04/04/24 19:26 73 20 98 04/04/24 19:21 Room Air 04/04/24 19:21 0 21 04/04/24 16:43 124/66 04/04/24 16:15 98.2 98.2 Total Intake and Output 04/03/24 04/03/24 04/04/24 15:00 23:00 07:00 Intake Total 550 ml 980 ml Output Total 850 ml 700 ml Balance -300 ml 280 ml medications Current Medications Medications Dose Ordered Sig/Prince Route Start Time Stop Time Status Last Admin Dose Admin Nitroglycerin 0.4 mg Q5MINP PRN SL 03/28/24 18:00 03/31/24 03:47 0.4 MG Morphine Sulfate 2 mg Q30M PRN IV 03/28/24 18:00 Aspirin 81 mg DAILY PO 03/29/24 10:00 04/04/24 08:44 81 MG Metoprolol Tartrate 25 mg TID PO 03/28/24 22:00 04/04/24 15:43 25 MG Tamsulosin HCl 0.4 mg DAILY PO 03/29/24 10:00 04/04/24 08:44 0.4 MG Atorvastatin Calcium 40 mg HS PO 03/28/24 22:00 04/03/24 21:53 40 MG Diagnostic Test (Pha) 1 strip ACHS 03/28/24 22:00 04/04/24 16:39 1 STRIP Insulin Human Regular HS SC 03/28/24 22:00 04/03/24 22:01 6 UNITS Insulin Human Regular AC SC 03/29/24 07:00 04/04/24 16:45 9 UNITS Dextrose 50 ml UD PRN IV 03/28/24 18:00 Pantoprazole Sodium 40 mg DAILY PO 03/29/24 10:00 04/04/24 08:44 40 MG Hydromorphone HCl 0.5 mg Q4HPRN PRN IV 03/29/24 11:30 12/3/24 11:40 0.5 MG Alprazolam 0.5 mg Q6HP PRN PO 03/31/24 10:40 04/02/24 08:38 0.5 MG Fluticasone Propionate 100 mcg DAILY EACHNOSTRI 04/01/24 14:30 Albuterol 2.5 mg Q6HWA NEB 04/01/24 18:00 04/04/24 19:21 2.5 MG Ticagrelor 90 mg BID PO 04/02/24 08:00 04/04/24 08:44 90 MG objective Gen: NAD HEENT: NC, AT Lungs: CTA b/l Cardiac: RRR, no murmur Abd: soft, no tenderness Ext: no edema Neuro: AAOx3, no focal deficits. laboratory and microbiology Laboratory Tests 04/04/24 15:23 04/02/24 06:14 Test 04/04/24 15:23 Range/Units Serum Glucose 260 H 74-106 mg/dL Assessment/Plan ]]Assessment: 1. CHAVA, secondary to contrast induced nephropathy 2. Obstructive uropathy, Left hydronephrosis, but renal size is normal 3. HTN is better controlled 4. CKD3b 5. Diabetic nephropathy 6. Metabolic acidosis 7. CAD, patient had cardiac catheterization yesterday and intervention to LAD. Risk of contrast-induced nephropathy was very high, patient was aware. 8. Uncontrolled DM2 Plan: GFR is worsened, but urine output has improved. will continue to monitor Reviewed renal US on 04/03. unremarkable. there is minimal Lt hydronephrosis, and non-obstructive Lt stone (0.4 cm) there is mild pulm congestion., will use loop diuretics prn Daily BMP Hold ACEI for now Dietary Evaluation Review Comments: 1. Continue current diet regime when appropriate Expected Outcomes/Goals: 1. Pt will consume >75% within 3-5 days Plan discussed with: Patient RICARDO DUARTE MD Apr 04, 2024 20:55
--- NOTE | 2024-04-04 21:22 | DVHPN2 ---
Progress Note - Dictate Date Seen: Apr 04, 2024 Has the PT tested + for MRSA If YES, has PT been informed?: No Medical Necessity Reason Pt with a Central, PICC or Fol: No Subjective Patient seen and examined at bedside. Breathing on room air. Overnight events reviewed. vital signs Vital Sign Date Time Temp Pulse Resp B/P (MAP) Pulse Ox O2 Delivery O2 Flow Rate FiO2 04/04/24 19:26 73 20 98 04/04/24 19:21 Room Air 04/04/24 19:21 0 21 04/04/24 16:43 124/66 04/04/24 16:15 98.2 98.2 Total Intake and Output 04/03/24 04/03/24 04/04/24 15:00 23:00 07:00 Intake Total 550 ml 980 ml Output Total 850 ml 700 ml Balance -300 ml 280 ml medications Current Medications Medications Dose Ordered Sig/Prince Route Start Time Stop Time Status Last Admin Dose Admin Nitroglycerin 0.4 mg Q5MINP PRN SL 03/28/24 18:00 03/31/24 03:47 0.4 MG Morphine Sulfate 2 mg Q30M PRN IV 03/28/24 18:00 Aspirin 81 mg DAILY PO 03/29/24 10:00 04/04/24 08:44 81 MG Metoprolol Tartrate 25 mg TID PO 03/28/24 22:00 04/04/24 15:43 25 MG Tamsulosin HCl 0.4 mg DAILY PO 03/29/24 10:00 04/04/24 08:44 0.4 MG Atorvastatin Calcium 40 mg HS PO 03/28/24 22:00 04/03/24 21:53 40 MG Diagnostic Test (Pha) 1 strip ACHS 03/28/24 22:00 04/04/24 16:39 1 STRIP Insulin Human Regular HS SC 03/28/24 22:00 04/03/24 22:01 6 UNITS Insulin Human Regular AC SC 03/29/24 07:00 04/04/24 16:45 9 UNITS Dextrose 50 ml UD PRN IV 03/28/24 18:00 Pantoprazole Sodium 40 mg DAILY PO 03/29/24 10:00 04/04/24 08:44 40 MG Hydromorphone HCl 0.5 mg Q4HPRN PRN IV 03/29/24 11:30 04/04/24 11:40 0.5 MG Alprazolam 0.5 mg Q6HP PRN PO 03/31/24 10:40 04/02/24 08:38 0.5 MG Fluticasone Propionate 100 mcg DAILY EACHNOSTRI 04/01/24 14:30 Albuterol 2.5 mg Q6HWA NEB 04/01/24 18:00 04/04/24 19:21 2.5 MG Ticagrelor 90 mg BID PO 04/02/24 08:00 04/04/24 08:44 90 MG objective Gen.: Patient lying in bed in no apparent distress. Breathing on room air. Head: Normocephalic, atraumatic. Eyes: EOMI/PERRLA. Ears: Normal hearing. Normal anatomy. Neck/trachea: Trachea midline, supple. Nose: Normal external anatomy. Mouth: Moist mucous membranes. Chest: Decreased air entry bilaterally. No wheezing or rhonchi. Cardiovascular: Positive S1, positive S2. Regular rate and rhythm. Abdomen: Positive bowel sounds in all 4 quadrants. Soft, non-tender, non- distended. : Deferred. Rectal: Deferred. Skin: Warm, dry. Intact. Extremities: 2+ radial pulses bilaterally. No lower extremity edema. Neuro: Awake, alert, oriented x3. No gross motor or sensory deficits. Cranial nerves II through XII intact. Gait not assessed. laboratory and microbiology Laboratory Tests 04/04/24 15:23 04/02/24 06:14 Test 04/04/24 15:23 Range/Units Serum Glucose 260 H 74-106 mg/dL Assessment/Plan Impression: Acute hypoxic respiratory failure CAD s/p PCI NSTEMI Obesity BMI 34.1 Atelectasis Elevated troponin Leucocytosis, resolved Possible ZONIA Events: Breathing on room air No respiratory distress. BiPAP at night. Recommend outpatient evaluation for ZONIA. STOP-BANG score of 5. S/p cardiac catheterization; PCI to 95% ruptured LAD ulcerated plaque Severe 3-vessel CAD Continue nystatin. Flonase Continue bronchodilators Accu-Cheks, ISS. GI prophylaxis w/ Protonix Pt ambulating well. Recommend sleep study as outpatient. Labs and imaging reviewed. Rest of plan as noted below. Plan: Supplemental oxygen PRN Keep o2 saturation above 92% BiPAP at night. Bronchodilators Flonase nasal spray Cardiology recommendations appreciated s/p Cardiac cath. Brillinta Monitor renal function Monitor electrolytes Supplement as necessary. Monitor ins/outs F/u Nephrology recommendations Obesity, complicates all care Diet and lifestyle modifications for weight reduction. Recommend outpatient evaluation for ZONIA Pt has several risk factors for ZONIA. Accucheks, ISS DVT prophylaxis. GI prophylaxis - Protonix Prognosis: Guarded given patient's multiple co-morbidities. Rest of plan per hospitalist and other consultants. Thank you Fabi Julio NP, for allowing me to participate in this patient's care. Further recommendations will depend on the patient's clinical course. Please do not hesitate to contact me if you have any questions or concerns. This medical document was created using an electronic medical record system with [employer] dictation system. Although these documentations are being carefully reviewed, there may still be some phonetic and typographical changes. The errors are purely typographical, due to imperfection on the software program, and do not reflect any compromise in the patient's medical care. Dietary Evaluation Review Comments: 1. Continue current diet regime when appropriate Expected Outcomes/Goals: 1. Pt will consume >75% within 3-5 days Plan discussed with: Patient, Other (STEPHANY Yañez) VANDANA BYRNE MD Apr 04, 2024 21:22
[2024-04-05] VITALS (10 sets, daily range): BP systolic 106–137; BP diastolic 62–87; PULSE 62–80; RESP 17–20; TEMP 97.3–98.2; O2SAT 93–99
[2024-04-05 07:55] LABS: Chloride 101 mmol/L (98-107)
[2024-04-05 07:56] LABS: Anion Gap 12 (5-15); Carbon Dioxide 22 mmol/L (20-31)
[2024-04-05 08:02] LABS: BUN/Creatinine Ratio 9.2 (10.0-20.0)
[2024-04-05 08:04] LABS: Blood Urea Nitrogen 31 mg/dL (9-23); Glucose 226 mg/dL (74-106); Sodium 135 mmol/L (136-145)
--- NOTE | 2024-04-05 09:25 | DVHPN2 ---
Progress Note - Dictate Has the PT tested + for MRSA If YES, has PT been informed?: No Medical Necessity Reason Pt with a Central, PICC or Fol: No vital signs Vital Sign Date Time Temp Pulse Resp B/P (MAP) Pulse Ox O2 Delivery O2 Flow Rate FiO2 04/05/24 09:16 75 18 119/88 04/05/24 06:37 99 04/05/24 06:31 Room Air 04/05/24 06:31 0 21 04/05/24 05:00 97.6 97.6 Total Intake and Output 04/04/24 04/04/24 04/05/24 15:00 23:00 07:00 Intake Total 1400 ml 800 ml Output Total 1600 ml 1000 ml Balance -200 ml -200 ml medications Current Medications Medications Dose Ordered Sig/Prince Route Start Time Stop Time Status Last Admin Dose Admin Nitroglycerin 0.4 mg Q5MINP PRN SL 03/28/24 18:00 03/31/24 03:47 0.4 MG Morphine Sulfate 2 mg Q30M PRN IV 03/28/24 18:00 Aspirin 81 mg DAILY PO 03/29/24 10:00 04/05/24 09:15 81 MG Metoprolol Tartrate 25 mg TID PO 03/28/24 22:00 04/05/24 05:45 25 MG Tamsulosin HCl 0.4 mg DAILY PO 03/29/24 10:00 04/05/24 09:15 0.4 MG Atorvastatin Calcium 40 mg HS PO 03/28/24 22:00 04/04/24 21:30 40 MG Diagnostic Test (Pha) 1 strip ACHS 03/28/24 22:00 04/05/24 05:45 1 STRIP Insulin Human Regular HS SC 03/28/24 22:00 04/04/24 21:40 6 UNITS Insulin Human Regular AC SC 03/29/24 07:00 04/05/24 06:21 6 UNITS Dextrose 50 ml UD PRN IV 03/28/24 18:00 Pantoprazole Sodium 40 mg DAILY PO 03/29/24 10:00 04/05/24 09:15 40 MG Hydromorphone HCl 0.5 mg Q4HPRN PRN IV 03/29/24 11:30 04/05/24 09:16 0.5 MG Alprazolam 0.5 mg Q6HP PRN PO 03/31/24 10:40 04/02/24 08:38 0.5 MG Fluticasone Propionate 100 mcg DAILY EACHNOSTRI 04/01/24 14:30 Albuterol 2.5 mg Q6HWA NEB 04/01/24 18:00 04/05/24 06:31 2.5 MG Ticagrelor 90 mg BID PO 04/02/24 08:00 04/05/24 09:16 90 MG objective General Appearance: alert, no distress HEENT: EOMI, PERRLA, normal external inspect of ears, no icterus, no nasal drainage Neck: no carotid bruit, no jugular venous distention (JVD), no lymphadenopathy Chest: normal thorax Respiratory: clear to auscultation, normal air movement Cardiovascular: regular rate and rhythm, no diastolic murmur, no jugular venous distention (JVD), no rub, no systolic murmur Abdominal: soft, no hepatomegaly, no mass, no splenomegaly, no tenderness Genitourinary: grossly normal external Musculoskeletal: no joint tenderness, no swelling Extremities: normal pulses, no calf tenderness, no clubbing, no cyanosis, no edema Skin: no bruising, no jaundice, no rash Neurological: alert, No focal deficit laboratory and microbiology Laboratory Tests 04/05/24 06:18 04/02/24 06:14 Test 04/05/24 06:18 Range/Units Serum Glucose 226 H 74-106 mg/dL Problem List 1. Chest pain Monitor, cardiology consult, trend troponin 2. NSTEMI Monitor, cardiology consult, Heparin GTT 3. HLD Monitor 4. DM II w/ hyperglycemia Monitor, insulin SS Assessment/Plan Subjective Patient is awake and alert. Objective Patient was admitted as an NSTEMI. He is status post heart cath. Patient has an CHAVA superimposed on CKD. Creatinine was elevated. Repeat labs are still pending today. Plan Continue current treatment. Nephrology has been following patient. Monitor EKG. Monitor INOs. Dietary Evaluation Review Comments: 1. Continue current diet regime when appropriate Expected Outcomes/Goals: 1. Pt will consume >75% within 3-5 days ISA GRANT NP Apr 05, 2024 09:25
[2024-04-05] MEDS: diphenhdrAMINE HCL 50 MG/1 ML VL IV ONE (09:44)
[2024-04-05] MEDS ORDERED: INSU100I4 SC (10:23)
[2024-04-05] MEDS ORDERED: INSU31MI XX (10:23)
[2024-04-05] MEDS ORDERED: INSU100I74 SC (10:23)
[2024-04-05] MEDS ORDERED: BLOO-169 XX (10:23)
[2024-04-05] MEDS ORDERED: TICA90TA PO (10:23)
[2024-04-05] MEDS ORDERED: METO25TA5 PO (10:23)
--- NOTE | 2024-04-05 10:25 | DVHDS2 ---
Discharge Summary Date of Admission Mar 28, 2024 at 17:49 Date of Discharge: Apr 05, 2024 Labs/Diagnostic Data: Laboratory Results Test 04/05/24 06:18 04/05/24 05:47 04/02/24 09:55 04/02/24 06:14 Sodium Level 135 mmol/L (136-145) Potassium Level 4.0 mmol/L (3.5-5.1) Chloride Level 101 mmol/L (98-107) Carbon Dioxide Level 22 mmol/L (20-31) Anion Gap 12 (5-15) Blood Urea Nitrogen 31 mg/dL (9-23) Creatinine 3.37 mg/dL (0.700-1.30) Glomerular Filtration Rate Calc 21 mL/min (>90) BUN/Creatinine Ratio 9.2 (10.0-20.0) Serum Glucose 226 mg/dL (74-106) Calcium Level 10.0 mg/dL (8.7-10.4) POC Glucose 230 mg/dl (70-106) Blood Gas Specimen Type Arterial Blood Gas Sample Site Left radial Blood Gas Patient Temperature 37.0 Arterial Blood Date Drawn [id number] Arterial Blood pH 7.538 (7.350-7.450) Arterial Blood Partial Pressure CO2 21.1 mmHg (35.0-48.0) Arterial Blood Partial Pressure O2 75.1 mmHg (83.0-108.0) Arterial Blood HCO3 17.6 mmol/L (21.0-28.0) Arterial Blood Oxygen Saturation 96.0 % (94.0-98.0) Arterial Blood Base Excess -2.6 mmol/L (-2.0-3.0) Arterial Blood Oxyhemoglobin 95.2 % (94.0-98.0) Arterial Blood Carboxyhemoglobin 0.7 % (0.5-1.5) Arterial Blood Methemoglobin 0.1 % (0.0-1.5) Emeterio Test Yes Blood Gas Total Hemoglobin 14.60 g/dL (13.5-17.5) Blood Gas Modality Mask - bipap FiO2 % 24.0 Blood Gas Pressure Support 7 Blood Gas EPAP 8 Blood Gas IPAP 15 White Blood Count 7.7 10^3/uL (4.4-10.8) Red Blood Count 4.25 10^6/uL (4.5-5.90) Hemoglobin 13.7 g/dL (13.5-17.5) Hematocrit 38.7 % (41.0-53.0) Mean Corpuscular Volume 91.1 fL (80.0-100.0) Mean Corpuscular Hemoglobin 32.3 pg (28.0-32.0) Mean Corpuscular Hemoglobin Concent 35.5 g/dL (32.0-36.0) Red Cell Distribution Width 13.0 % (11.8-14.3) Platelet Count 334 10^3/uL (140-450) Mean Platelet Volume 7.9 fL (6.9-10.8) Neutrophils (%) (Auto) 70.2 % (37.0-80.0) Lymphocytes (%) (Auto) 15.9 % (10.0-50.0) Monocytes (%) (Auto) 8.1 % (0.0-12.0) Eosinophils (%) (Auto) 5.1 % (0.0-7.0) Basophils (%) (Auto) 0.7 % (0.0-2.0) Neutrophils # (Auto) 5.4 10 ^3/uL (1.6-8.6) Lymphocytes # (Auto) 1.2 10 ^3/uL (0.4-5.4) Monocytes # (Auto) 0.6 10 ^3/uL (0-1.3) Eosinophils # (Auto) 0.4 10 ^3/uL (0-0.8) Basophils # (Auto) 0.1 10 ^3/uL (0-0.2) Nucleated Red Blood Cells 0.0 % Test 04/01/24 23:03 04/01/24 16:00 03/29/24 13:50 03/29/24 13:02 Prothrombin Time 11.7 sec (9.3-11.8) Prothrombin Time INR 1.11 (0.9-1.15) Activated Partial Thromboplast Time 44.5 SEC (24.5-34.5) Troponin I High Sensitivity 7376 ng/L (</=54) Urine Creatinine 138.15 mg/dL (30.0-125.0) Urine Protein/Creatinine Ratio 0.22 Urine Sodium 29 mmol/L (40-220) Urine Total Protein 29.9 mg/dL (1-14) Vitamin D 25-Hydroxy 29.9 ng/mL (30.0-100) Test 03/29/24 05:04 Uric Acid 13.0 mg/dL (3.7-9.2) Phosphorus Level 3.8 mg/dL (2.4-5.1) Magnesium Level 2.1 mg/dL (1.6-2.6) Total Bilirubin 0.6 mg/dL (0.2-1.0) Aspartate Amino Transferase (AST) 84 U/L (13-40) Alanine Aminotransferase (ALT) 34 U/L (7-40) Alkaline Phosphatase 109 U/L (46-116) Total Protein 6.1 g/dL (5.7-8.2) Albumin 3.8 g/dL (3.2-4.8) Parathyroid Hormone (Intact) 82.5 pg/mL (18.4-80.1) Other Laboratory Tests 04/05/24 06:18 04/02/24 06:14 Brief Hx & Hospital Course: 53 y/o male patient presents with c/o chest pain. Patient states he had pressure-like chest pain. Per EMS patient was hypertensive with systolic pressure in the 200s. Patient was recently seen at this hospital and was diagnosed with ureteral colic. While in the emergency department the patient was evaluated by the provider, As per provider: Labs, vital signs, and imagining monitored. Patient was admitted on March 28, 2024 as an NSTEMI. Patient was found to have CHAVA superimposed on CKD. Patient most likely had contrast-induced nephropathy. Patient was seen by cardiology. He ended up with an emergent angiogram done by Dr. Fuchs. Patient was kept several days after procedure due to additional CHAVA from angiogram. Patient will continue dual antiplatelet therapy uninterrupted for 1 year with Brilinta and aspirin. Patient was instructed on the importance of adhering to blood thinners and to not miss any doses. I spoke with patient at length about discontinuing lisinopril glipizide and metformin and diuretics at this time due to CHAVA. Patient was transitioned to lispro 5 units 3 times daily before meals and Lantus 10 units daily. Patient will need close follow-up with her PCP for additional titration for their diabetes. Insurance confirmed that patient already had a glucometer at home. Patient will have close follow-up with cardiology in 1 to 2 weeks and close follow-up with nephrology in 1 to 2 weeks to continue to monitor GFR level. The patient received proper medical treatment and medications. Vital signs, Imaging and Laboratory Work was monitored daily. All consults recommendations were followed as provided. There were no complaints or new complaints upon discharge, all questions and concerns were answered. Patient was advised to return to the ER or call 911 if any headaches, dizziness, shortness of breath, chest pain, bleeding, fevers, or worsening of medical condition. Patient/Family was counseled about treatment plan, medications, possible side effects, patient verbalized understanding. All questions were answered to the best of my ability. The patient symptoms improved and they are okay to be DC. Condition at Discharge: Stable Final Diagnosis/Problems List Nstemi CHAVA-resolving Discharge Disposition: Home Discharge Instruct/Medications Diet: Consistent carbohydrate Activity: No Restrictions, As Tolerated Follow Up/Referral: pcp 1 week cardio 1 week nephro 1-2 week Medications: stop diuretics, lisinopril and oral diabetic meds start insulin as directed Discharge Statement: "Patient was advised to return to the ER or call 911 if any headaches, dizziness, shortness of breath, chest pain, abdominal pain, bleeding, fevers, or worsening of medical condition. Patient was counseled about treatment plan, medications, possible side effects, patientverbalized understanding. All questions were answered to the best of my ability. This discharge took greater then 30 minutes in planning, reviewing documentation, counseling the patient, and discussing with other team members." ASSESSMENT ASSESSMENT Assessment Nstemi CHAVA-resolving ISA GRANT NP Apr 05, 2024 10:25
--- NOTE | 2024-04-05 17:34 | DVHPN2 ---
Progress Note - Dictate Date Seen: Apr 05, 2024 Has the PT tested + for MRSA If YES, has PT been informed?: No Medical Necessity Reason Pt with a Central, PICC or Fol: No Subjective Patient was seen and evaluated in follow up. Patient has no new complaints at this time. Patient denies any cardiac symptoms. Patient is cardiac stable for discharge. vital signs Vital Sign Date Time Temp Pulse Resp B/P (MAP) Pulse Ox O2 Delivery O2 Flow Rate FiO2 04/05/24 11:58 75 18 99 04/05/24 11:52 Room Air 04/05/24 11:52 0 21 04/05/24 09:46 106/62 04/05/24 09:00 98.2 98.2 Total Intake and Output 04/04/24 04/04/24 04/05/24 15:00 23:00 07:00 Intake Total 1400 ml 800 ml Output Total 1600 ml 1000 ml Balance -200 ml -200 ml objective GENERAL: Awake, alert, oriented. LUNGS: Clear. CARDIOVASCULAR: Heart sounds are good. ABDOMEN: Soft. laboratory and microbiology Laboratory Tests 04/05/24 06:18 04/02/24 06:14 Test 04/05/24 06:18 Range/Units Serum Glucose 226 H 74-106 mg/dL Problem List NSTEMI. Chest pain. HLD. DM II w/ hyperglycemia. Assessment/Plan Continued all current supportive medical care. Dilaudid for pain management. Heparin drip per pharmacy protocol. Aspirin, Lipitor, Metoprolol. Nitro SL. Lisinopril. GI prophylactics. Additional plan as per the hospital course. Dietary Evaluation Review Comments: 1. Continue current diet regime when appropriate Expected Outcomes/Goals: 1. Pt will consume >75% within 3-5 days Plan discussed with: Patient VALERIE MCBRIDE MD Apr 05, 2024 14:07
--- NOTE | 2024-04-05 20:34 | DVHPN2 ---
Progress Note - Dictate Date Seen: Apr 05, 2024 Has the PT tested + for MRSA If YES, has PT been informed?: No Medical Necessity Reason Pt with a Central, PICC or Fol: No Subjective Patient seen and examined at bedside. Breathing on room air. Overnight events reviewed. vital signs Vital Sign Date Time Temp Pulse Resp B/P (MAP) Pulse Ox O2 Delivery O2 Flow Rate FiO2 04/05/24 11:58 75 18 99 04/05/24 11:52 Room Air 04/05/24 11:52 0 21 04/05/24 09:46 106/62 04/05/24 09:00 98.2 98.2 Total Intake and Output 04/04/24 04/04/24 04/05/24 15:00 23:00 07:00 Intake Total 1400 ml 800 ml Output Total 1600 ml 1000 ml Balance -200 ml -200 ml objective Gen.: Patient lying in bed in no apparent distress. Breathing on room air. Head: Normocephalic, atraumatic. Eyes: EOMI/PERRLA. Ears: Normal hearing. Normal anatomy. Neck/trachea: Trachea midline, supple. Nose: Normal external anatomy. Mouth: Moist mucous membranes. Chest: Decreased air entry bilaterally. No wheezing or rhonchi. Cardiovascular: Positive S1, positive S2. Regular rate and rhythm. Abdomen: Positive bowel sounds in all 4 quadrants. Soft, non-tender, non- distended. : Deferred. Rectal: Deferred. Skin: Warm, dry. Intact. Extremities: 2+ radial pulses bilaterally. No lower extremity edema. Neuro: Awake, alert, oriented x3. No gross motor or sensory deficits. Cranial nerves II through XII intact. Gait not assessed. laboratory and microbiology Laboratory Tests 04/05/24 06:18 04/02/24 06:14 Test 04/05/24 06:18 Range/Units Serum Glucose 226 H 74-106 mg/dL Assessment/Plan Impression: Acute hypoxic respiratory failure CAD s/p PCI NSTEMI Obesity BMI 34.1 Atelectasis Elevated troponin Leucocytosis, resolved Possible ZONIA Events: Breathing on room air No respiratory distress. BiPAP at night. Recommend outpatient evaluation for ZONIA. STOP-BANG score of 5. S/p cardiac catheterization; PCI to 95% ruptured LAD ulcerated plaque Severe 3-vessel CAD Continue bronchodilators Accu-Cheks, ISS. GI prophylaxis w/ Protonix Pain control Avoid oversedation Pt ambulating well. Recommend sleep study as outpatient. Patient is stable for discharge from the pulmonary standpoint. Labs and imaging reviewed. Rest of plan as noted below. Plan: Supplemental oxygen PRN Keep o2 saturation above 92% BiPAP at night. Bronchodilators Flonase nasal spray Cardiology recommendations appreciated s/p Cardiac cath. Brillinta Monitor renal function Monitor electrolytes Supplement as necessary. Monitor ins/outs F/u Nephrology recommendations Obesity, complicates all care Diet and lifestyle modifications for weight reduction. Recommend outpatient evaluation for ZONIA Pt has several risk factors for ZONIA. Accucheks, ISS DVT prophylaxis. GI prophylaxis - Protonix Prognosis: Guarded given patient's multiple co-morbidities. Rest of plan per hospitalist and other consultants. Thank you Fabi Julio NP, for allowing me to participate in this patient's care. Further recommendations will depend on the patient's clinical course. Please do not hesitate to contact me if you have any questions or concerns. This medical document was created using an electronic medical record system with [employer] dictation system. Although these documentations are being carefully reviewed, there may still be some phonetic and typographical changes. The errors are purely typographical, due to imperfection on the software program, and do not reflect any compromise in the patient's medical care. Dietary Evaluation Review Comments: 1. Continue current diet regime when appropriate Expected Outcomes/Goals: 1. Pt will consume >75% within 3-5 days Plan discussed with: Patient, Other (STEPHANY Herrera) VANDANA BYRNE MD Apr 05, 2024 20:34
== END 2024-04-05 13:20 | disposition home or self-care (01) | DRG 174 ==
LOC: ER 10:29 → EDBD 10:29 → TELE 17:49 → TELE-WESTW 22:30
PROVIDERS: ADMIT Nurse Practitioner; ATTEND Nurse Practitioner
PROC: 027034Z Dilation of Coronary Artery, One Artery with Drug-eluting Intraluminal Device, Percutaneous Approach (ICD-10-PCS; principal; 2024-04-01)
PROC: 4A023N7 Measurement of Cardiac Sampling and Pressure, Left Heart, Percutaneous Approach (ICD-10-PCS; 2024-04-01)
PROC: B211YZZ Fluoroscopy of Multiple Coronary Arteries using Other Contrast (ICD-10-PCS; 2024-04-01)
PROC: 5A09357 Assistance with Respiratory Ventilation, Less than 24 Consecutive Hours, Continuous Positive Airway Pressure (ICD-10-PCS; 2024-04-02)
DX: I21.4 Non-ST elevation (NSTEMI) myocardial infarction (principal); J96.01 Acute respiratory failure with hypoxia; E87.20 Acidosis, unspecified; I13.0 Hypertensive heart and chronic kidney disease with heart failure and stage 1 through stage 4 chronic kidney disease, or unspecified chronic kidney disease; I50.22 Chronic systolic (congestive) heart failure; D72.829 Elevated white blood cell count, unspecified; E11.22 Type 2 diabetes mellitus with diabetic chronic kidney disease; N17.9 Acute kidney failure, unspecified; E66.9 Obesity, unspecified; J98.11 Atelectasis; N18.32 Chronic kidney disease, stage 3b; E11.65 Type 2 diabetes mellitus with hyperglycemia; E78.5 Hyperlipidemia, unspecified; I25.10 Atherosclerotic heart disease of native coronary artery without angina pectoris; N13.2 Hydronephrosis with renal and ureteral calculous obstruction; T50.8X5A Adverse effect of diagnostic agents, initial encounter; N14.11 Contrast-induced nephropathy; M10.9 Gout, unspecified; Z68.34 Body mass index [BMI] 34.0-34.9, adult; Z79.4 Long term (current) use of insulin; Z79.899 Other long term (current) drug therapy; Y92.89 Other specified places as the place of occurrence of the external cause
CPT/HCPCS: 36415; 36600; 71045; 74018; 76775; 80048; 80053; 82306; 82570; 82805; 82962; 83735; 83970; 84100; 84156; 84300; 84484; 84550; 85025; 85610; 85730; 92941; 93005; 93458; 94640; 94660; 96365; 96375; 99152; 99291; G0378; J1815; J2250; J2405; Q9967

== ENCOUNTER 2024-11-16 08:57 | Emergency (ER) | payer OTHER ==
[~2024-11-16] VITALS: Ht 175.3 cm; Wt 94.5 kg
[~2024-11-16 08:57] MED LIST changes: +BLOO-169 XX; +CHOL1CAP21 PO; +INSU100I4 SC; +INSU100I74 SC; +INSU31MI XX; -LISI20TA56 PO; +TICA90TA PO
--- NOTE | 2024-11-16 10:07 | ED.PDOC ---
General HPI Comments THIS IS A 54 YEAR OLD MALE PRESENTING TO THE ED WITH CHIEF COMPLAINT OF HEMATURIA. PATIENT REPORTS THAT HE HAD BEEN EXPERIENCING INTERMITTENT HEMATURIA WITH ASSOCIATED FLANK PAIN SINCE YESTERDAY. PATIENT STATES HE TOOK SOME OXYCODONE YESTERDAY AND HE CURRENTLY HAS NO PAIN AT THIS TIME. PATIENT NOTES HE HAD PREVIOUSLY PASSED A KIDNEY STONE BEFORE, HAVING SIMILAR SYMPTOMS BEFORE. PATIENT DENIES ANY DYSURIA, ABDOMINAL PAIN, N/V, OR FEVER. Time Seen by MD: 10:01 Primary Care Provider: liban Reviewed notes: Nurses Notes, Medications, Allergies Allergies: Coded Allergies: Acetaminophen (Verified Allergy, Unknown, 09/17/18) Hydrocodone (Verified Allergy, Unknown, 09/17/18) Home Meds Active Scripts Insulin Pen Needle (Bd Ultra-Fine Mini Pen Ne) 31GX3/16 Mis, 16 XX QID, #100 Patient injects short acting three times a day and long acting once daily. may substitute brand and quantity. Prov:ISA GRANT Jp GUILLERMO 04/05/24 Blood Glucose Monitoring Suppl (EASY TOUCH GLUCOSE MONITO) Monitor Kit, EA XX, #1 I glucometer plus lancets and test strips. May substitute. Patient needs to test three times a day before meals, 1 month supply Prov:ISA GRANT Jp GUILLERMO 04/05/24 Insulin Lispro (Humalog Kwikpen) 100 Unit/Ml Inj, 100 UNIT SC AC for 30 Days, #1 INJ Inject 5 units a day before meals Prov:ISA GRANT Jp GUILLERMO 04/05/24 Insulin Glargine (Insulin Glargine Solostar) 100 Unit/Ml Inj, 100 UNIT SC DAILY for 30 Days, #1 INJ Inject 10 units sub q nightly Prov:JUANITAISAPOORNIMA Trammell NP 04/05/24 Ticagrelor Base (BRILINTA) 90 Mg Tab, 90 MG PO BID for 30 Days, #60 TAB Prov:JUANITAISAPOORNIMA Trammell NP 04/05/24 Metoprolol Tartrate (Metoprolol Tartrate) 25 Mg Tab, 25 MG PO TID for 30 Days, #60 MG Prov:MIGUEL ANGEL GRANTPOORNIMA Trammell [employer] 04/05/24 Oxycodone HCl (Oxycodone Hydrochloride) 5 Mg Tab, 5 MG PO TID PRN for 4 Days, #12 TAB Prov:DASIA HAWKINS MD 03/28/24 Tamsulosin Hcl (Flomax) 0.4 Mg Cap, 1 CAP PO DAILY for 14 Days, #30 CAP 11 Refills Prov:DASIA HAWKINS MD 03/28/24 Reported Medications Cholecalciferol (Vitamin D3) 50,000 Unit Cap, 1 CAP PO QWEEKLY 03/28/24 Clopidogrel Bisulfate (CLOPIDOGREL) 75 Mg Tab, 1 TAB PO DAILY, #90 TAB 1 Refill 09/19/18 Aspirin (Aspir-Low) 81 Mg Tab, 81 MG PO DAILY for 30 Days, MG 09/19/18 Nitroglycerin (NTROSTAT SUBLINGUAL) 0.4 Mg Sl, 0.4 MG SL PRN *MAY REPEAT EVERY 5 MINUTES X 3 TOTAL IF NO RELIEF, INITIATE ANALGESIC THERAPY. NOTIFY PHYSICIAN *Do not crush. 09/19/18 Atorvastatin Calcium (ATORVASTATIN CALCIUM) 40 Mg Tab, 1 TAB PO QPM, #90 TAB 3 Refills 09/19/18 Information Source: Patient Mode of Arrival: Ambulatory Severity: Mild, Moderate Inability to void: None Timing: Days Duration: Since onset, Intermittent, Days Prehospital treatment: None Onset: Spontaneous Symptoms: Hematuria History of: Kidney stone Location: (L)Flank associated signs and symptoms: Abdominal Pain, Hematuria Past Medical History PAST MEDICAL HISTORY: DM, Gout, High Lipids, HTN, Kidney Stones Surgical History: Cholecystectomy, PTCA Family History Family History: Reviewed,noncontributory to illness, Unknown Social History Smoker: Non-Smoker, Quit Less Than 1 Year Alcohol: Denies ETOH Use Drugs: Denies Drug Use Lives In: Home Constitutional: denies: chills, diaphoresis, fatigue, fever, malaise, sweats, weakness, others EENTM: denies: blurred vision, double vision, ear bleeding, ear discharge, ear drainage, ear pain, ear ringing, eye pain, eye redness, hearing loss, mouth pain, mouth swelling, nasal discharge, nose bleeding, nose congestion, nose pain, photophobia, tearing, throat pain, throat swelling, voice changes, others Respiratory: denies: cough, hemoptysis, orthopnea, SOB at rest, shortness of breath, SOB with excertion, stridor, wheezing, others Cardiovascular: denies: chest pain, dizzy spells, diaphoresis, Dyspnea on exertion, edema, irregular heart beat, left arm pain, lightheadedness, palpitations, PND, syncope, others Gastrointestinal: denies: abdomen distended, abdominal pain, blood streaked bowels, constipated, diarrhea, dysphagia, difficulty swallowing, hematemesis, melena, nausea, poor appetite, poor fluid intake, rectal bleeding, rectal pain, vomiting, others Genitourinary: reports: flank pain, hematuria; denies: burning, dysuria, quyen quency, incontinence, penile discharge, penile sore, pain, testicle pain, testicle swelling, urgency, others Neurological: denies: dizziness, fainting, headache, left sided numbness, left sided weakness, numbness, paresthesia, pre-existing deficit, right sided numbness, right sided weakness, seizure, speech problems, tingling, tremors, weakness, others Musculoskeletal: denies: back pain, gout, joint pain, joint swelling, muscle pain, muscle stiffness, neck pain, others Integumetry: denies: bruises, change in color, change in hair/nails, dryness, laceration, lesions, lumps, rash, wounds, others Allergic/Immunocompromised: denies: Difficulty Healing, Frequent Infections, Hi ves, Itching, others Hematologic/Lymphatic: denies: anemia, blood clots, easy bleeding, easy bruising, swollen glands, others Endocrine: denies: excessive hunger, excessive sweating, excessive thirst, excessive urination, flushing, intolerance to cold, intolerance to heat, unexplained weight gain, unexplained weight loss, others Psychiatric: denies: anxiety, bipolar disorder, depression, hopeless, panic disorder, schizophrenia, sleepless, suicidal, others All Other Systems: Reviewed and Negative Physical Exam General Appearance: No Apparent Distress, Obese HEENT: Normal ENT Inspection, PERRL/EOMI, Pharynx Normal, TMs Normal Neck: Full Range of Motion, Non-Tender, Normal, Normal Inspection Respiratory: Chest Non-Tender, Lungs Clear, No Accessory Muscle Use, No Respiratory Distress, Normal Breath Sounds Cardiovascular: No Edema, No JVD, No Murmur, No Gallop, Normal Peripheral Pulses, Regular Rate/Rhythm Breast Exam: Deferred Gastrointestinal: LLQ, No Organomegaly, No Pulsatile Mass, Normal Bowel Sounds, Soft, Tenderness (LEFT FLANK, NO GUARDING AND REBOUND TENDERNESS, NO CVA TENDERNESS. ) Genitalia: Deferred Pelvic: Deferred Rectal: Deferred Extremities: No calf tenderness, Normal capillary refill, Normal inspection, Normal range of motion, Non-tender, No pedal edema Musculoskeletal : Apperance: Normal Neurologic: Alert, school traffic guard II-XII nml as Tested, No Motor Deficits, Normal Affect, Normal Mood, No Sensory Deficits Cerebellar Function: Normal Reflexes: Normal Skin: Dry, Normal Color, Warm Peripheral Pulses: 2+ carotid (R), 2+ carotid (L) Lymphatic: No Adenopathy Was a procedure done? Was a procedure done?: No Differential Diagnosis Kidney stone (Female): N/A Kidney stone (Male): Urolithiasis, Urinary tract infection Urinary Problem (Male): Urinary Retention, Urolithiasis, UTI X-Ray, Labs, Meds, VS Vital Signs Date Time Temp Pulse Resp B/P (MAP) Pulse Ox O2 Delivery O2 Flow Rate FiO2 11/16/24 11:50 98.5 81 18 134/92 (106) 97 98.5 11/16/24 11:50 81 18 97 Room Air 11/16/24 10:10 97.8 93 16 145/71 (95) 95 97.8 Lab Test 11/16/24 11:10 11/16/24 10:00 Range/Units White Blood Count 7.8 4.4-10.8 10^3/uL Red Blood Count 5.22 4.5-5.90 10^6/uL Hemoglobin 16.2 13.5-17.5 g/dL Hematocrit 46.4 41.0-53.0 % Mean Corpuscular Volume 88.9 80.0-100.0 fL Mean Corpuscular Hemoglobin 30.9 28.0-32.0 pg Mean Corpuscular Hemoglobin Concent 34.8 32.0-36.0 g/dL Red Cell Distribution Width 13.1 11.8-14.3 % Platelet Count 288 140-450 10^3/uL Mean Platelet Volume 7.8 6.9-10.8 fL Neutrophils (%) (Auto) 54.4 37.0-80.0 % Lymphocytes (%) (Auto) 33.1 10.0-50.0 % Monocytes (%) (Auto) 6.0 0.0-12.0 % Eosinophils (%) (Auto) 5.7 0.0-7.0 % Basophils (%) (Auto) 0.8 0.0-2.0 % Neutrophils # (Auto) 4.3 1.6-8.6 10 ^3/uL Lymphocytes # (Auto) 2.6 0.4-5.4 10 ^3/uL Monocytes # (Auto) 0.5 0-1.3 10 ^3/uL Eosinophils # (Auto) 0.4 0-0.8 10 ^3/uL Basophils # (Auto) 0.1 0-0.2 10 ^3/uL Nucleated Red Blood Cells 0.1 % Sodium Level 134 L 136-145 mmol/L Potassium Level 4.1 3.5-5.1 mmol/L Chloride Level 102 98-107 mmol/L Carbon Dioxide Level 21 20-31 mmol/L Anion Gap 11 5-15 Blood Urea Nitrogen 15 9-23 mg/dL Creatinine 1.73 H 0.700-1.30 mg/dL Glomerular Filtration Rate Calc 46 >90 mL/min BUN/Creatinine Ratio 8.7 L 10.0-20.0 Serum Glucose 299 H 74-106 mg/dL Calcium Level 10.2 8.7-10.4 mg/dL Urine Color Light-orange Yellow Urine Clarity Turbid H Clear Urine pH 5.0 5.0-9.0 Urine Specific [place] 1.013 1.001-1.035 Urine Protein Trace H Negative Urine Ketones Negative Negative Urine Blood 3+ H Negative /uL Urine Nitrite Negative Negative Urine Bilirubin Negative Negative Urine Urobilinogen Normal Negative mg/dL Urine Leukocyte Esterase Negative Negative /uL Urine RBC 169 0 - 3 /hpf Urine Microscopic WBC 5 H 0-3 /HPF Urine Squamous Epithelial Cells None seen <5 /hpf Urine Bacteria None seen None Seen /hpf Urine Mucus Few None Seen Urine Glucose 4+ H Normal mg/dL Current Medications Medications (Trade) Dose Ordered Sig/Prince Route Start Time Stop Time Status Last Admin Sodium Chloride 1,000 ml @ 1,000 mls/hr Q1H ONCE IV 11/16/24 11:45 11/16/24 12:44 DC 11/16/24 11:[address] [address] Ph: [phone] DIAGNOSTIC IMAGING Diagnostic Imaging Report : [id number] Signed PATIENT: VALENTINE SMITH ACCT: [id number] UNIT: [id number] : 1970 LOC: ER ROOM / BED: / AGE / SEX: 54 / M ADM STATUS: REG ER SERVICE [id number] ORDERING PHYSICIAN: KEE AVALOS PROCEDURE(s): ABPL - CT AB PEL WO CON-NO ORAL OR IV REASON: BLOOD IN THE URINE AND LEFT FLANK PAIN ORDER NUMBER(s): [id number], ACCESSION NUMBER(s): [id number] CT CT AB PEL WO CON-NO ORAL OR IV INDICATION: BLOOD IN THE URINE AND LEFT FLANK PAIN EXAM DATE: 11/16/2024 11:17 AM COMPARISON: CT CT AB PEL WO CON-NO ORAL OR IV on DOS: 03/28/24, CT ABD PELVIS WO CONTRAST on DOS: 12/24/18 RADIATION DOSE: CTDIvol: mGy, DLP: mGy*cm PROCEDURE: Helical CT images were obtained of the abdomen and pelvis without IV contrast Sagittal and coronal reconstructions are provided. ORAL CONTRAST: None. ADDITIONAL IMAGES / REFORMATS: None All CT scans at this medical facility are performed using dose modulation techniques as appropriate to a performed exam including the following: Automated exposure control was utilized; adjustment of the MA and/or KV according to patient size; and use of iterative reconstruction technique. FINDINGS: LUNG BASE: Normal. LIVER: Hepatic steatosis. GALLBLADDER AND BILIARY TREE: Cholecystectomy clips. No intra- or extrahepatic biliary ductal dilation. PANCREAS: Normal. SPLEEN: Normal. BOWEL: Moderate colonic diverticulosis. Normal appendix. ADRENALS: Normal. KIDNEYS AND URETER: Small bilateral nonobstructive kidney stones. BLADDER: Bladder stones are seen. REPRODUCTIVE ORGANS: Normal. LYMPH NODES:No lymphadenopathy. PERITONEUM: No ascites or free air. No other fluid collection. VESSELS: Scattered atherosclerotic calcifications are noted. RETROPERITONEUM: Normal. ABDOMINAL WALL: Normal. BONES: Scattered osseous degenerative changes are noted. IMPRESSION: No acute intraabdominal abnormality. Small bilateral nonobstructive kidney stones. Bladder stones are seen. Hepatic steatosis. ATED BY: RUBIO LEE MD DICTATED DATE/TIME: 11/16/24 122 SIGNED BY: RUBIO LEE MD SIGNED DATE/TIME: 11/16/24 1222 CC: X-Ray, Labs, Meds, VS Comment EXTERNAL MEDICAL RECORDS REVIEWED: [NONE] INDEPENDENT HISTORIANS: [NONE] SOCIAL DETERMINANTS OF HEALTH: [NONE] LABS ORDERED: UA, CBC, BMP REVIEWED AND INTERPRETED RESULTS: CT ABD/PEL IMAGING ORDERED: CT ABD/PEL TREATMENTS ORDERED: NS 1L IV, OXYCODONE 5MG PO PROCEDURES PERFORMED: NONE CRITICAL CARE TIME: NONE I HAVE DISCUSSED THE PATIENT WITH THE ATTENDING PHYSICIAN DR. HAWKINS AND HE AGREES WITH THE PATIENT'S PLAN OF CARE AND DISPOSITION. BASED ON HISTORY OF PRESENT ILLNESS, AND PHYSICAL EXAM, PATIENT WILL BE DISCHARGED HOME. DISCUSSED PLAN FOR DISCHARGE HOME WITH RX OXYCODONE 5MG. MEDICATION WARNINGS GIVEN. SHARED DECISION MAKING: DISCUSSED WITH PATIENT THAT THEIR WORKUP WAS NORMAL. PATIENT INSTRUCTED TO FOLLOW UP WITH PRIMARY CARE PROVIDER IN 1-2 DAYS FOR RE- EVALUATION OF SYMPTOMS. PATIENT VERBALIZES UNDERSTANDING TO RETURN TO ED FOR NEW OR WORSENING SYMPTOMS OR IF FOLLOW UP WITH PCP CANNOT BE OBTAINED. PATIENT FEELS COMFORTABLE GOING HOME AT THIS TIME. ALL QUESTIONS ADDRESSED AT TIME OF DISCHARGE. Time of 1ST Reevaluation: 12:50 Reevaluation 1ST: Improved Patient Education/Counseling: Diagnosis, Treatment, Need For Follow Up Family Education/Counseling: Diagnosis, Treatment, Need For Follow Up Medical Screening: No EMC Exist At This Time SEPSIS Sepsis Screen Physician Orders Ct Ab Pel Wo Con-No Oral Or Iv (11/16/24 11:17) Heplock Iv (11/16/24 ) Oxycodone Er Tablet (Oxycontin Er Tablet (11/16/24 13:00) Vital Signs Date Time Temp Pulse Resp B/P (MAP) Pulse Ox O2 Delivery O2 Flow Rate FiO2 11/16/24 11:50 98.5 81 18 134/92 (106) 97 98.5 11/16/24 11:50 81 18 97 Room Air 11/16/24 10:10 97.8 93 16 145/71 (95) 95 97.8 Laboratory Tests Test 11/16/24 11:10 White Blood Count 7.8 10^3/uL (4.4-10.8) Medications Medications Dose Ordered Sig/Prince Route Start Time Stop Time Status Last Admin Dose Admin Sodium Chloride 1,000 ml @ 1,000 mls/hr Q1H ONCE IV 11/16/24 11:45 11/16/24 12:44 DC 11/16/24 11:54 Departure 1 Departure Time of Disposition: 12:35 Impression: Primary Impression: Bilateral kidney stones Additional Impression: Bladder stones Disposition: 01 HOME / SELF CARE / HOMELESS Condition: Stable Additional Instructions: FOLLOW-UP WITH PCP IN 1 TO 2 DAYS. TAKE MEDICATIONS PRESCRIBED. RETURN TO ED FOR ANY NEW OR WORSENING SYMPTOMS. e-Prescriptions Oxycodone Hcl (OXYCODONE HCL) 5 Mg Tb 5 MG PO BID, #10 TAB Prov: KEE AVALOS 11/16/24 Discharged With: Self, Spouse Critical Care Note Critical Care Time?: No Stability Stability form required: No Heart Score Heart Score: Heart Score Response (Comments) Value History N/A 0 EKG N/A 0 Age N/A 0 Risk Factors N/A 0 Troponin N/A 0 Total 0 I personally scribed for KEE AVALOS ([email or web address]) on 11/16/24 at 10:07. Electronically submitted by Berto Christina ([email or web address]). I personally scribed for KEE AVALOS ([email or web address]) on 11/16/24 at 12:32. Electronically submitted by Berto Christina ([email or web address]). I personally scribed for KEE AVALOS ([email or web address]) on 11/16/24 at 12:35. Electronically submitted by Berto Christina ([email or web address]). KEE AVALOS Nov 16, 2024 10:07
[2024-11-16 10:57] LABS: Urine Protein, UAD TRACE (Negative)
[2024-11-16 11:22] LABS: Hematocrit 46.4 % (41.0-53.0); Hemoglobin 16.2 g/dL (13.5-17.5); Mean Corpuscular Hemoglobin 30.9 pg (28.0-32.0); Mean Corpuscular Volume 88.9 fL (80.0-100.0); Nucleated Red Blood Cells % 0.1 %
[2024-11-16 11:30] LABS: Chloride 102 mmol/L (98-107); Potassium 4.1 mmol/L (3.5-5.1)
[2024-11-16 11:31] LABS: Anion Gap 11 (5-15); Calcium 10.2 mg/dL (8.7-10.4); Carbon Dioxide 21 mmol/L (20-31); Sodium 134 mmol/L (136-145)
[2024-11-16 11:36] LABS: BUN/Creatinine Ratio 8.7 (10.0-20.0); Blood Urea Nitrogen 15 mg/dL (9-23); Glucose 299 mg/dL (74-106)
[2024-11-16 11:50] VITALS: BP 134/92; PULSE 81; RESP 18; TEMP 98.5; O2SAT 97
[2024-11-16] MEDS: SODIUM CHLORIDE 0.9% 1,000 ML IV ONE (11:54)
--- NOTE | 2024-11-16 12:25 | DVH ---
CT CT AB PEL WO CON-NO ORAL OR IV INDICATION: BLOOD IN THE URINE AND LEFT FLANK PAIN EXAM DATE: 11/16/2024 11:17 AM COMPARISON: CT CT AB PEL WO CON-NO ORAL OR IV on DOS: 03/28/24, CT ABD PELVIS WO CONTRAST on DOS: 12/02 08/19 RADIATION DOSE: CTDIvol: mGy, DLP: mGy*cm PROCEDURE: Helical CT images were obtained of the abdomen and pelvis without IV contrast Sagittal and coronal reconstructions are provided. ORAL CONTRAST: None. ADDITIONAL IMAGES / REFORMATS: None All C T scans at this medical facility are performed using dose modulation techniques as appropriate to a p erformed exam including the following: Automated exposure control was utilized; adjustment of the MA and/or KV according to patient size; and use of iterative reconstruction technique. FINDINGS: LUNG BASE: Normal. LIVER: Hepatic steatosis. GALLBLADDER AND BILIARY TREE: Cholecystectomy clips. No intra- or extrahepatic biliary ductal dilatio n. PANCREAS: Normal. SPLEEN: Normal. BOWEL: Moderate colonic diverticulosis. Normal appendix. ADRENALS: Normal. KIDNEYS AND URETER: Small bilateral nonobstructive kidney stones. BLADDER: Bladder stones are seen. REPRODUCTIVE ORGANS: Normal. LYMPH NODES:No lymphadenopathy. PERITONEUM: No ascites or free air. No other fluid collection. VESSELS: Scattered atherosclerotic calcifications are noted. RETROPERITONEUM: Normal. ABDOMINAL WALL: Normal. BONES: Scattered osseous degenerative changes are noted. IMPRESSION: No acute intraabdominal abnormality. Small bilateral nonobstructive kidney stones. Bladder stones are seen. Hepatic steatosis.
[2024-11-16] MEDS ORDERED: OXY5T PO ×2 (12:48→12:53)
== END 2024-11-16 12:59 | disposition home or self-care (01) ==
LOC: ER 08:57
DX: N20.0 Calculus of kidney (principal); N21.0 Calculus in bladder; E11.9 Type 2 diabetes mellitus without complications; I10 Essential (primary) hypertension; E78.5 Hyperlipidemia, unspecified; Z90.49 Acquired absence of other specified parts of digestive tract; Z87.891 Personal history of nicotine dependence; Z88.5 Allergy status to narcotic agent; Z79.899 Other long term (current) drug therapy; Z79.82 Long term (current) use of aspirin; Z79.4 Long term (current) use of insulin; Z79.02 Long term (current) use of antithrombotics/antiplatelets; Z87.442 Personal history of urinary calculi
CPT/HCPCS: 36415; 74176; 80048; 81001; 82947; 85025; 96360; 99284; J7030; 82962

== ENCOUNTER 2025-03-02 17:05 | Inpatient (IN) | payer OTHER ==
[~2025-03-02] VITALS: Ht 177.8 cm; Wt 97.6 kg
[~2025-03-02 17:05] MED LIST changes: +OXY5T PO
[2025-03-02 17:38] LABS: Hematocrit 41.5 % (41.0-53.0); Hemoglobin 14.4 g/dL (13.5-17.5); Mean Corpuscular Hemoglobin 30.9 pg (28.0-32.0); Mean Corpuscular Volume 89.1 fL (80.0-100.0); Nucleated Red Blood Cells % 0.1 %
--- NOTE | 2025-03-02 17:38 | ED.PDOC ---
History of Present Illness HPI Comments 54 y/o obese M is BIBA for c/c of nonradiating, substernal chest pain. Significant history for CHAVA, DM, gout, HLD, HTN, NSTEMI s/p 2xPTCA's, and former tobacco user. Per EMS personnel report, patient endorses on 3x day history of intermittent, pressure-like pain, which he states on feeling similar to previous VT. Patient is also reported to have been noncompliant with his blood pressure medication for over the past few days. Prior to EMS arrival, patient took 4x of his baby ASA (324mg total). On scene, he had a systolic pressure in the 200's. En route, patient received 0.4mg NTG, with pain resolving and blood pressure improving. Denies any further acute symptoms. Chief Complaint: Chest Pain Time Seen by MD: 17:00 Primary Care Provider: UNKNOWN Reviewed Notes: Nurses Notes, Targeteer Notes, Medications, Allergies Allergies: Coded Allergies: Acetaminophen (Verified Allergy, Unknown, 09/17/18) Hydrocodone (Verified Allergy, Unknown, 09/17/18) Home Meds Active Scripts Oxycodone Hcl (OXYCODONE HCL) 5 Mg Tb, 5 MG PO BID, #10 TAB Prov:KEE AVALOS 11/16/24 Insulin Pen Needle (Bd Ultra-Fine Mini Pen Ne) 31GX3/16 Mis, 16 XX QID, #100 Patient injects short acting three times a day and long acting once daily. may substitute brand and quantity. Prov:ISA GRANT NP 04/05/24 Blood Glucose Monitoring Suppl (EASY TOUCH GLUCOSE MONITO) Monitor Kit, EA XX, #1 I glucometer plus lancets and test strips. May substitute. Patient needs to test three times a day before meals, 1 month supply Prov:ISA GRANT NP 04/05/24 Insulin Lispro (Humalog Kwikpen) 100 Unit/Ml Inj, 100 UNIT SC AC for 30 Days, #1 INJ Inject 5 units a day before meals Prov:ISA GRANT CATTLE MANAGER 04/05/24 Insulin Glargine (Insulin Glargine Solostar) 100 Unit/Ml Inj, 100 UNIT SC DAILY for 30 Days, #1 INJ Inject 10 units sub q nightly Prov:ISA GRANT NP 04/05/24 Ticagrelor Base (BRILINTA) 90 Mg Tab, 90 MG PO BID for 30 Days, #60 TAB Prov:ISA GRANT CATTLE MANAGER 04/05/24 Metoprolol Tartrate (Metoprolol Tartrate) 25 Mg Tab, 25 MG PO TID for 30 Days, #60 MG Prov:ISA GRANT CATTLE MANAGER 04/05/24 Oxycodone HCl (Oxycodone Hydrochloride) 5 Mg Tab, 5 MG PO TID PRN for 4 Days, #12 TAB Prov:DASIA HAWKINS MD 03/28/24 Tamsulosin Hcl (Flomax) 0.4 Mg Cap, 1 CAP PO DAILY for 14 Days, #30 CAP 11 Refills Prov:DASIA HAWKINS MD 03/28/24 Reported Medications Cholecalciferol (Vitamin D3) 50,000 Unit Cap, 1 CAP PO QWEEKLY 03/28/24 Clopidogrel Bisulfate (CLOPIDOGREL) 75 Mg Tab, 1 TAB PO DAILY, #90 TAB 1 Refill 09/19/18 Aspirin (Aspir-Low) 81 Mg Tab, 81 MG PO DAILY for 30 Days, MG 09/19/18 Nitroglycerin (NTROSTAT SUBLINGUAL) 0.4 Mg Sl, 0.4 MG SL PRN *MAY REPEAT EVERY 5 MINUTES X 3 TOTAL IF NO RELIEF, INITIATE ANALGESIC THERAPY. NOTIFY PHYSICIAN *Do not crush. 09/19/18 Atorvastatin Calcium (ATORVASTATIN CALCIUM) 40 Mg Tab, 1 TAB PO QPM, #90 TAB 3 Refills 09/19/18 Information Source: Patient, Emergency Med Personnel Mode of Arrival: EMS Severity: Moderate Timing: Hours Duration: Since onset Prehospital treatment: 12 Lead EKG, ASA, Client Service Associate, NTG (0.4mg NTG) Past Medical History PAST MEDICAL HISTORY: DM, Gout, High Lipids, HTN, Kidney Stones, VT (NSTEMI) Past Medical History (Other): CHAVA Brilinta and aspirin Surgical History: Cholecystectomy, PTCA (2x) Family History Family History: Reviewed,noncontributory to illness, Unknown Social History Smoker: Non-Smoker, Quit Less Than 1 Year Alcohol: Denies ETOH Use Drugs: Denies Drug Use Lives In: Home All Other Systems: Reviewed and Negative (Comprehensive review of systems are negative unless stated in HPI) Physical Exam General Appearance: Moderate Distress HEENT: Normal ENT Inspection, Pharynx Normal, TMs Normal Neck: Full Range of Motion, Non-Tender, Normal, Normal Inspection Respiratory: Chest Non-Tender, Lungs Clear, No Accessory Muscle Use, No Respiratory Distress, Normal Breath Sounds Cardiovascular: No Edema, No JVD, No Murmur, No Gallop, Normal Peripheral Pulses, Regular Rate/Rhythm Breast Exam: Deferred Gastrointestinal: No Organomegaly, Non Tender, No Pulsatile Mass, Normal Bowel Sounds, Soft Genitalia: Deferred Pelvic: Deferred Rectal: Deferred Extremities: No calf tenderness, Normal capillary refill, Normal inspection, Normal range of motion, Non-tender, No pedal edema Musculoskeletal : Apperance: Normal Neurologic: Alert, sample display preparer II-XII nml as Tested, No Motor Deficits, Normal Affect, Normal Mood, No Sensory Deficits Cerebellar Function: NOT DONE Reflexes: NOT DONE Skin: Dry, Normal Color, Warm Peripheral Pulses: 3+ Radial (R), 3+ Radial (L) Lymphatic: No Adenopathy Was a procedure done? Was a procedure done?: No Differential Dx Considerations may include: VT, PE, ACS, CAD, PNA, URI, angina, anxiety, among others X-Ray, Labs, Meds, VS Vital Signs Date Time Temp Pulse Resp B/P (MAP) Pulse Ox O2 Delivery O2 Flow Rate FiO2 03/02/25 17:22 98.0 98 18 168/109 94 98.0 03/02/25 17:07 95 Lab Test 03/02/25 17:10 Range/Units White Blood Count 6.2 4.4-10.8 10^3/uL Red Blood Count 4.66 4.5-5.90 10^6/uL Hemoglobin 14.4 13.5-17.5 g/dL Hematocrit 41.5 41.0-53.0 % Mean Corpuscular Volume 89.1 80.0-100.0 fL Mean Corpuscular Hemoglobin 30.9 28.0-32.0 pg Mean Corpuscular Hemoglobin Concent 34.7 32.0-36.0 g/dL Red Cell Distribution Width 13.4 11.8-14.3 % Platelet Count 311 140-450 10^3/uL Mean Platelet Volume 8.1 6.9-10.8 fL Neutrophils (%) (Auto) 62.3 37.0-80.0 % Lymphocytes (%) (Auto) 27.2 10.0-50.0 % Monocytes (%) (Auto) 5.0 0.0-12.0 % Eosinophils (%) (Auto) 4.8 0.0-7.0 % Basophils (%) (Auto) 0.7 0.0-2.0 % Neutrophils # (Auto) 3.9 1.6-8.6 10 ^3/uL Lymphocytes # (Auto) 1.7 0.4-5.4 10 ^3/uL Monocytes # (Auto) 0.3 0-1.3 10 ^3/uL Eosinophils # (Auto) 0.3 0-0.8 10 ^3/uL Basophils # (Auto) 0 0-0.2 10 ^3/uL Nucleated Red Blood Cells 0.1 % Sodium Level 135 L 136-145 mmol/L Potassium Level 4.7 3.5-5.1 mmol/L Chloride Level 101 98-107 mmol/L Carbon Dioxide Level 21 20-31 mmol/L Anion Gap 13 5-15 Blood Urea Nitrogen Pending Creatinine Pending Glomerular Filtration Rate Calc Pending BUN/Creatinine Ratio Pending Serum Glucose Pending Calcium Level 9.0 8.7-10.4 mg/dL Troponin I High Sensitivity Pending Patient alert. Complaining of chest pain. Vitals stable. Answering questions. WBC within normal limits. Hemoglobin within normal limits. EKG reviewed does show old changes. Continues to have chest pain. Nitro did help. Was given aspirin. Was given nitro. Explained to the patient. Continue monitoring. Time of 1ST Reevaluation: 17:30 Reevaluation 1ST: Unchanged Patient Education/Counseling: Diagnosis, Treatment, Other (need for admission) Family Education/Counseling: No Family Present SEPSIS Sepsis Screen Physician Orders Urinalysis (03/02/25 17:09) Electrocardigram (03/02/25 17:12) Electrocardigram (03/02/25 18:12) Electrocardigram (03/02/25 20:12) Troponin-I Hs (03/02/25 17:22) Troponin-I Hs (03/02/25 18:22) Troponin-I Hs (03/02/25 20:22) Basic Metabolic Panel (03/02/25 17:22) Vital Signs Date Time Temp Pulse Resp B/P (MAP) Pulse Ox O2 Delivery O2 Flow Rate FiO2 03/02/25 17:22 98.0 98 18 168/109 94 98.0 03/02/25 17:07 95 Laboratory Tests Test 03/02/25 17:10 White Blood Count 6.2 10^3/uL (4.4-10.8) Departure 1 Departure Time of Disposition: 17:47 Impression: Primary Impression: Chest pain of unknown etiology Disposition: ADMITTED INPATIENT Admit to: Med Surg Condition: Guarded Critical Care Note Critical Care Time?: Yes (35 min-critical care time only) Stability Stability form required: No Heart Score Heart Score: Heart Score Response (Comments) Value History Highly Suspicious 2 EKG Normal 0 Age 45-64 1 Risk Factors >3 or Hx ASHD 2 Troponin Normal limit 0 Total 5 I personally scribed for YAN SANCHES MD ([email or web address]) on 03/02/25 at 17:38. Electronically submitted by Jeet Blanton [email or web address]). YAN SANCHES MD Mar 02, 2025 17:38
[2025-03-02 17:41] LABS: Chloride 101 mmol/L (98-107); Potassium 4.7 mmol/L (3.5-5.1)
[2025-03-02 17:42] LABS: Anion Gap 13 (5-15); Calcium 9.0 mg/dL (8.7-10.4); Carbon Dioxide 21 mmol/L (20-31)
[2025-03-02 17:43] LABS: Sodium 135 mmol/L (136-145)
[2025-03-02 17:47] LABS: BUN/Creatinine Ratio 11.8 (10.0-20.0); Blood Urea Nitrogen 20 mg/dL (9-23)
[2025-03-02 17:56] LABS: Glucose 476 mg/dL (74-106)
[2025-03-02] MEDS: NITROGLYCERIN 0.4 MG SL TAB SL ONE (18:09)
[2025-03-02] MEDS ORDERED: SODIUM CHLORIDE 0.9% 1,000 ML IV ONE (18:15)
[2025-03-02] MEDS: SODIUM CHLORIDE 0.9% 1,000 ML IV ONE (18:15)
--- NOTE | 2025-03-02 18:37 | ECG ---
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
--- NOTE | 2025-03-02 18:37 | ECG ---
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
[2025-03-02] MEDS ORDERED: ONDANSETRON HCL 4 MG/2 ML VIAL IV PRN (18:45)
[2025-03-02] MEDS ORDERED: DOCUSATE SOD 100 MG CAP PO PRN (18:45)
[2025-03-02 19:30] VITALS: RESP 18; O2SAT 95
[2025-03-02] MEDS: ACCU-CHEK COMFORT CURVE STRIP VI ONE (19:51)
[2025-03-02] MEDS: InsuLIN REG 1unit/0.01ml Soln (100units/ml) IV ONE (19:51)
[2025-03-02] MEDS: DEXTROSE (50%) 50ML SYRG IV ONE (19:52)
[2025-03-02] MEDS: InsuLIN REG 1unit/0.01ml Soln (100units/ml) SC ONE (20:16)
[2025-03-02 20:17] LABS: Urine Protein, UAD Negative (Negative)
[2025-03-02] MEDS: SODIUM CHLORIDE 0.9% 1,000 ML IV SCH (20:21)
[2025-03-02] MEDS: ENOXAPARIN SOD 100 MG/1 ML SYRINGE SC ONE (20:23)
[2025-03-02 22:15] VITALS: BP 156/94; PULSE 87; RESP 18; TEMP 98.1; O2SAT 96
[2025-03-02 22:22] VITALS: PULSE 71; RESP 17; O2SAT 96
[2025-03-03] VITALS (8 sets, daily range): BP systolic 136–180; BP diastolic 90–123; PULSE 75–96; RESP 16–19; TEMP 97.1–98.7; O2SAT 94–100
--- NOTE | 2025-03-03 03:59 | ECG ---
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
[2025-03-03 06:14] LABS: Hematocrit 40.4 % (41.0-53.0); Hemoglobin 14.2 g/dL (13.5-17.5); Mean Corpuscular Hemoglobin 30.9 pg (28.0-32.0); Mean Corpuscular Volume 88.2 fL (80.0-100.0); Nucleated Red Blood Cells % 0.1 %
[2025-03-03 06:35] LABS: Alanine Aminotransferase 17 U/L (7-40); Albumin 4.0 g/dL (3.2-4.8); Anion Gap 11 (5-15); BUN/Creatinine Ratio 9.5 (10.0-20.0); Blood Urea Nitrogen 14 mg/dL (9-23); Calcium 9.0 mg/dL (8.7-10.4); Carbon Dioxide 22 mmol/L (20-31); Chloride 105 mmol/L (98-107); Potassium 4.1 mmol/L (3.5-5.1); Sodium 138 mmol/L (136-145); Total Protein 6.5 g/dL (5.7-8.2)
[2025-03-03 06:36] LABS: Alkaline Phosphatase 136 U/L (46-116); Bilirubin, Total 0.4 mg/dL (0.2-1.0); Glucose 245 mg/dL (74-106)
--- NOTE | 2025-03-03 09:00 | DVHHP2 ---
Admitting Diagnosis: Chest pain History of Present Illness 54 y/o male patient with hx of HTN, NSTEMI, DM, CHAVA, gout presents with c/o chest pain x3 days. Patient reportedly has not been compliant with his medicat ions the past few days. EMS found patient to be hypertensive with systolic blood pressure in the 200s. While in the emergency department the patient was evaluated by the provider, As per provider: Labs, vital signs, and imagining monitored. Patient will be admitted for further evaluation and treatment. I discussed admission with the patient/family and is in agreement to treatment plan. Patient Family History: Gout Allergies: Coded Allergies: Acetaminophen (Verified Allergy, Unknown, 09/17/18) Hydrocodone (Verified Allergy, Unknown, 09/17/18) Home Meds Active Scripts Oxycodone Hcl (OXYCODONE HCL) 5 Mg Tb, 5 MG PO BID, #10 TAB Prov:KEE AVALOS 11/16/24 Insulin Pen Needle (Bd Ultra-Fine Mini Pen Ne) 31GX3/16 Mis, 16 XX QID, #100 Patient injects short acting three times a day and long acting once daily. may substitute brand and quantity. Prov:ISA GRANT NP 04/05/24 Blood Glucose Monitoring Suppl (EASY TOUCH GLUCOSE MONITO) Monitor Kit, EA XX, #1 I glucometer plus lancets and test strips. May substitute. Patient needs to test three times a day before meals, 1 month supply Prov:ISA GRANT NP 04/05/24 Insulin Lispro (Humalog Kwikpen) 100 Unit/Ml Inj, 100 UNIT SC AC for 30 Days, #1 INJ Inject 5 units a day before meals Prov:ISA GRANT NP 04/05/24 Insulin Glargine (Insulin Glargine Solostar) 100 Unit/Ml Inj, 100 UNIT SC DAILY for 30 Days, #1 INJ Inject 10 units sub q nightly Prov:ISA GRANT NP 04/05/24 Ticagrelor Base (BRILINTA) 90 Mg Tab, 90 MG PO BID for 30 Days, #60 TAB Prov:ISA GRANT NP 04/05/24 Metoprolol Tartrate (Metoprolol Tartrate) 25 Mg Tab, 25 MG PO TID for 30 Days, #60 MG Prov:ISA GRANT NP 04/05/24 Oxycodone HCl (Oxycodone Hydrochloride) 5 Mg Tab, 5 MG PO TID PRN for 4 Days, #12 TAB Prov:DASIA HAWKINS MD 03/28/24 Tamsulosin Hcl (Flomax) 0.4 Mg Cap, 1 CAP PO DAILY for 14 Days, #30 CAP 11 Refills Prov:DASIA HAWKINS MD 03/28/24 Reported Medications Allopurinol (ZYLOPRIM TABLET) 100 Mg Tb, 1 TAB PO DAILY, #30 TAB 5 Refills 03/03/25 Cholecalciferol (Vitamin D3) 50,000 Unit Cap, 1 CAP PO QWEEKLY 03/28/24 Clopidogrel Bisulfate (CLOPIDOGREL) 75 Mg Tab, 1 TAB PO DAILY, #90 TAB 1 Refill 09/19/18 Aspirin (Aspir-Low) 81 Mg Tab, 81 MG PO DAILY for 30 Days, MG 09/19/18 Nitroglycerin (NTROSTAT SUBLINGUAL) 0.4 Mg Sl, 0.4 MG SL PRN *MAY REPEAT EVERY 5 MINUTES X 3 TOTAL IF NO RELIEF, INITIATE ANALGESIC THERAPY. NOTIFY PHYSICIAN *Do not crush. 09/19/18 Atorvastatin Calcium (ATORVASTATIN CALCIUM) 40 Mg Tab, 1 TAB PO QPM, #90 TAB 3 Refills 09/19/18 Current Medications Current Medications Medications (Trade) Dose Ordered Sig/Prince Route PRN Reason Start Time Stop Time Status Last Admin Enoxaparin Sodium (Lovenox) 40 mg DAILY SC 03/03/25 10:00 03/02/25 18:52 DC Enoxaparin Sodium (Lovenox) 100 mg Q12HR SC 03/03/25 10:00 03/03/25 21:02 Allopurinol (Zyloprim Tablet) 100 mg DAILY PO 03/04/25 10:00 Metoprolol Tartrate (Lopressor Tablet) 25 mg TID PO 03/03/25 14:00 03/04/25 05:05 Tamsulosin HCl (Flomax) 0.4 mg QPM PO 03/03/25 18:00 03/03/25 16:58 Pantoprazole Sodium (Protonix Tablet) 40 mg DAILY@0600 PO 03/04/25 06:00 03/04/25 05:06 Diagnostic Test (Pha) (Accu-Chek Comfort Curve T) 1 strip ACHS 03/03/25 11:30 03/04/25 05:07 Insulin Human Regular (InsuLIN R) HS SC 03/03/25 22:00 03/03/25 20:58 Insulin Human Regular (InsuLIN R) AC SC 03/03/25 11:30 03/03/25 16:57 Dextrose 50 ml UD PRN IV Blood Sugar LESS THAN 60 03/03/25 11:15 Aspirin (Ecotrin Enteric Coated Tablet) 81 mg DAILY PO 03/04/25 10:00 Ticagrelor (Brilinta) 90 mg BID PO 03/03/25 22:00 03/03/25 20:53 Review of Systems Constitutional: denies chills, denies fever, denies malaise Eyes: denies eye pain, denies vision change ENT: denies ear pain, denies headache, denies nasal congestion, denies painful swallowing, denies voice change Cardiovascular: denies chest pain, denies edema, denies orthopnea, denies palpitations, denies paroxysmal nocturnal dyspnea Respiratory: denies cough, denies shortness of breath Gastrointestinal: denies constipation, denies diarrhea, denies nausea, denies vomiting Genitourinary: denies dysuria, denies frequent urination, denies urethral discharge Musculoskeletal: denies back pain, denies joint pain, denies muscle pain Skin: denies bruising, denies itching, denies rash Neurological: denies focal weakness, denies headache, denies sensory changes Psychiatric: denies anxiety, denies depression Endocrine: denies polydipsia, denies polyuria Hematologic/Lymphatic: denies easy bleeding, denies easy bruising, denies enlarged lymph nodes Allergic/Immunologic: denies allergy, denies hives Vital Signs Vital Signs Date Time Temp Pulse Resp B/P (MAP) Pulse Ox O2 Delivery O2 Flow Rate FiO2 03/04/25 06:05 79 136/71 03/04/25 05:00 97.9 17 96 97.9 03/03/25 20:00 Room Air* 0 21 Physical Exam General Appearance: alert, no distress HEENT: EOMI, PERRLA, normal external inspect of ears, no icterus, no nasal drainage Neck: no carotid bruit, no jugular venous distention (JVD), no lymphadenopathy Chest: normal thorax Respiratory: clear to auscultation, normal air movement Cardiovascular: regular rate and rhythm, no diastolic murmur, no jugular venous distention (JVD), no rub, no systolic murmur Abdominal: soft, no hepatomegaly, no mass, no splenomegaly, no tenderness Genitourinary: grossly normal external Musculoskeletal: no joint tenderness, no swelling Extremities: normal pulses, no calf tenderness, no clubbing, no cyanosis, no edema Skin: no bruising, no jaundice, no rash Neurological: alert, No focal deficit SEPSIS Sepsis Screen Date sepsis recognized/suspect: Mar 02, 2025 Time Sepsis recognized/suspect: 1929 Recent Procedure: No On Antibiotic Therapy: No Respiratory Rate >20: No Heart Rate >90: No Temp<36 C (96.8 F) or >38.3 C: No SBP <90 or MAP <65 mmHG: No New Acute Mental Status Change: No Is the patient on CPAP, BIPAP,: No Physician Orders * Cardiology Consult (03/02/25 18:04) Admit (03/02/25 18:45) Code Status (03/02/25 18:45) Oxygen Per Hour (03/02/25 18:45) Ondansetron Hcl (Zofran) (03/02/25 18:45) Docusate Sodium Capsule (Colace Capsule) (03/02/25 18:45) Condition: Fair (03/02/25 18:45) Morphine Sulfate Injection (03/02/25 18:45) Sequential Compression Device (03/02/25 ) *Consult Dr. Gary Cardenas (03/02/25 18:45) Nitroglycerin Sublingual (Ntrostat Subli (03/02/25 18:45) Morphine Sulfate Injection (03/02/25 18:45) Stat Ekg For Chest Pain (03/02/25 18:45) Notify Md Of Changes From Base (03/02/25 18:45) Injection Molding Supervisor For 24 Hours (03/02/25 18:45) Emergency Dysrhythmia Protocol (03/02/25 18:45) Rhythm Strips Once Every Shift (03/02/25 18:45) Oxygen By Nasal Cannula (03/02/25 18:45) Enoxaparin Sodium (Lovenox) (03/03/25 10:00) Sodium Chloride 0.9% (03/02/25 19:00) * Transit Department Clerk Consult (03/03/25 ) Echo 2d Mode Cardiac Dop (03/03/25 18:45) Allopurinol Tablet (Zyloprim Tablet) (03/04/25 10:00) Metoprolol Tartrate Tablet (Lopressor Ta (03/03/25 14:00) Tamsulosin Hydrochloride (Flomax) (03/03/25 18:00) Pantoprazole Tablet (Protonix Tablet) (03/04/25 06:00) Glucose Blood (Accu-Chek Comfort Curve T (03/03/25 11:30) Insulin R (Human) (Insulin R) (03/03/25 22:00) Insulin R (Human) (Insulin R) (03/03/25 11:30) Dextrose 50% Syringe (03/03/25 11:15) 2 Gm Sodium Diet (03/03/25 Lunch) Nm Vq Scan (03/03/25 12:03) Aspirin Enteric Coated Tablet (Ecotrin E (03/04/25 10:00) Ticagrelor (Brilinta) (03/03/25 22:00) Chest Portable (03/03/25 13:58) Welder Apprentice Gas: Obtain Consent For: (03/03/25 14:18) Npo After Midnight (03/04/25 14:18) Electrocardigram (03/03/25 21:53) Urine Bacterial Culture (03/04/25 04:00) Vital Signs Date Time Temp Pulse Resp B/P (MAP) Pulse Ox O2 Delivery O2 Flow Rate FiO2 03/04/25 06:05 79 136/71 03/04/25 05:05 72 137/96 03/04/25 05:00 97.9 62 17 145/91 (109) 96 97.9 03/04/25 01:00 97.9 71 17 141/95 (110) 97 97.9 03/03/25 21:53 83 125/83 03/03/25 21:00 97.1 96 18 180/123 (142) 100 97.1 03/03/25 20:53 80 156/101 03/03/25 20:00 90 03/03/25 20:00 90 18 97 Room Air* 0 21 03/03/25 16:55 97.6 80 16 143/90 (107) 94 97.6 03/03/25 13:17 80 143/90 03/03/25 13:00 97.7 81 19 154/97 (116) 94 97.7 03/03/25 12:17 81 154/97 03/03/25 08:46 97.6 78 17 141/99 (113) 96 97.6 03/03/25 08:00 75 03/03/25 08:00 Room Air* 0 21 03/03/25 05:10 97.8 82 18 155/100 (118) 94 97.8 03/03/25 01:14 98.7 82 18 136/91 (106) 95 98.7 03/02/25 22:22 71 17 96 Room Air* 0 21 03/02/25 22:15 98.1 87 18 156/94 (114) 96 98.1 03/02/25 20:12 75 03/02/25 19:30 97.7 80 18 131/73 (92) 95 97.7 03/02/25 19:30 18 95 Room Air* 0 21 03/02/25 18:05 86 03/02/25 18:00 98.9 90 18 139/89 (106) 97 98.9 03/02/25 18:00 Room Air* 0 21 03/02/25 17:22 98.0 98 18 168/109 94 98.0 03/02/25 17:07 95 Laboratory Tests Test 03/02/25 17:10 03/03/25 05:58 White Blood Count 6.2 10^3/uL (4.4-10.8) 7.5 10^3/uL (4.4-10.8) Medications Medications Dose Ordered Sig/Prince Route Start Time Stop Time Status Last Admin Dose Admin Insulin Human Regular HS SC 03/03/25 22:00 03/03/25 20:58 Melatonin 10 mg ONCE ONCE PO 03/04/25 00:45 03/04/25 00:46 DC 03/04/25 00:39 Pantoprazole Sodium 40 mg DAILY@0600 PO 03/04/25 06:00 03/04/25 05:06 Ticagrelor 90 mg BID PO 03/03/25 22:00 03/03/25 20:53 Results Labs Test 03/04/25 05:04 03/04/25 04:00 03/03/25 20:51 03/03/25 05:58 Range/Units POC Glucose 252 H 70-106 mg/dl Urine Color Yellow Yellow Urine Clarity Cloudy H Clear Urine pH 6.5 5.0-9.0 Urine Specific [place] 1.030 1.001-1.035 Urine Protein Negative Negative Urine Ketones Negative Negative Urine Blood Negative Negative /uL Urine Nitrite Negative Negative Urine Bilirubin Negative Negative Urine Urobilinogen Normal Negative mg/dL Urine Leukocyte Esterase 3+ Negative /uL Urine RBC 1 0 - 3 /hpf Urine Microscopic WBC 68 H 0-3 /HPF Urine Squamous Epithelial Cells Few <5 /hpf Urine Bacteria Few H None Seen /hpf Urine Glucose 4+ H Normal mg/dL D-Dimer, Quantitative 0.20 0.0-0.49 mg/L FEU White Blood Count 7.5 4.4-10.8 10^3/uL Red Blood Count 4.58 4.5-5.90 10^6/uL Hemoglobin 14.2 13.5-17.5 g/dL Hematocrit 40.4 L 41.0-53.0 % Mean Corpuscular Volume 88.2 80.0-100.0 fL Mean Corpuscular Hemoglobin 30.9 28.0-32.0 pg Mean Corpuscular Hemoglobin Concent 35.0 32.0-36.0 g/dL Red Cell Distribution Width 13.2 11.8-14.3 % Platelet Count 300 140-450 10^3/uL Mean Platelet Volume 7.9 6.9-10.8 fL Neutrophils (%) (Auto) 52.4 37.0-80.0 % Lymphocytes (%) (Auto) 35.8 10.0-50.0 % Monocytes (%) (Auto) 5.5 0.0-12.0 % Eosinophils (%) (Auto) 5.3 0.0-7.0 % Basophils (%) (Auto) 1.0 0.0-2.0 % Neutrophils # (Auto) 3.9 1.6-8.6 10 ^3/uL Lymphocytes # (Auto) 2.7 0.4-5.4 10 ^3/uL Monocytes # (Auto) 0.4 0-1.3 10 ^3/uL Eosinophils # (Auto) 0.4 0-0.8 10 ^3/uL Basophils # (Auto) 0.1 0-0.2 10 ^3/uL Nucleated Red Blood Cells 0.1 % Sodium Level 138 136-145 mmol/L Potassium Level 4.1 3.5-5.1 mmol/L Chloride Level 105 98-107 mmol/L Carbon Dioxide Level 22 20-31 mmol/L Anion Gap 11 5-15 Blood Urea Nitrogen 14 9-23 mg/dL Creatinine 1.47 H 0.700-1.30 mg/dL Glomerular Filtration Rate Calc 56 >90 mL/min BUN/Creatinine Ratio 9.5 L 10.0-20.0 Serum Glucose 245 #H 74-106 mg/dL Hemoglobin A1c 12.1 H <5.7 % A1C Calcium Level 9.0 8.7-10.4 mg/dL Total Bilirubin 0.4 0.2-1.0 mg/dL Aspartate Amino Transferase (AST) 14 13-40 U/L Alanine Aminotransferase (ALT) 17 7-40 U/L Alkaline Phosphatase 136 H 46-116 U/L B-Type Natriuretic Peptide 146.39 0-100 pg/mL Total Protein 6.5 5.7-8.2 g/dL Albumin 4.0 3.2-4.8 g/dL Triglycerides Level 974 H < 150 mg/dL Cholesterol Level 198 < 200 mg/dL LDL Cholesterol 55 < 100 mg/dL HDL Cholesterol 27 L 40-59 mg/dL Test 03/02/25 20:11 Range/Units Troponin I High Sensitivity 599 *H </=54 ng/L Plan 1. Unstable angina Monitor, cardiology consult, echocardiogram 2. Benign essential HTN Monitor, antihypertensives 3. DM II with hyperglycemia Monitor, insulin ss 4. CAD s/p PTCA x2 Monitor restart ASA and Brilinta 5. Obesity Monitor, cardiac diet 6. Gout Monitor, medications 7. BPH Monitor, restart Flomax 8. HLD Monitor, restart Atorvastatin, lipid panel Plan discussed with: Patient, Other ISA GRANT NP Mar 03, 2025 09:00
--- NOTE | 2025-03-03 09:00 | DVHPN2 ---
Progress Note - Dictate Date Seen: Mar 03, 2025 Medical Necessity Reason Pt with a Central, PICC or Fol: No vital signs Vital Sign Date Time Temp Pulse Resp B/P (MAP) Pulse Ox O2 Delivery O2 Flow Rate FiO2 03/03/25 08:46 97.6 78 17 141/99 (113) 96 97.6 03/02/25 22:22 Room Air* 0 21 Total Intake and Output 03/02/25 03/02/25 03/03/25 15:00 23:00 07:00 Intake Total 500 ml Balance 500 ml medications Current Medications Medications Dose Ordered Sig/Prince Route Start Time Stop Time Status Last Admin Dose Admin Ondansetron HCl 4 mg Q4HP PRN IV 03/02/25 18:45 Docusate Sodium 100 mg BIDPRN PRN PO 03/02/25 18:45 Morphine Sulfate 2 mg Q4HPRN PRN IV 03/02/25 18:45 Nitroglycerin 0.4 mg Q5MINP PRN SL 03/02/25 18:45 Morphine Sulfate 2 mg Q30M PRN IV 03/02/25 18:45 Enoxaparin Sodium 100 mg Q12HR SC 03/03/25 10:00 Sodium Chloride 1,000 ml @ 75 mls/hr [id number] IV 03/02/25 19:00 03/02/25 20:21 objective General Appearance: alert, no distress HEENT: EOMI, PERRLA, normal external inspect of ears, no icterus, no nasal drainage Neck: no carotid bruit, no jugular venous distention (JVD), no lymphadenopathy Chest: normal thorax Respiratory: clear to auscultation, normal air movement Cardiovascular: regular rate and rhythm, no diastolic murmur, no jugular venous distention (JVD), no rub, no systolic murmur Abdominal: soft, no hepatomegaly, no mass, no splenomegaly, no tenderness Genitourinary: grossly normal external Musculoskeletal: no joint tenderness, no swelling Extremities: normal pulses, no calf tenderness, no clubbing, no cyanosis, no edema Skin: no bruising, no jaundice, no rash Neurological: alert, No focal deficit laboratory and microbiology Laboratory Tests 03/03/25 05:58 Test 03/03/25 05:58 Range/Units Serum Glucose 245 #H 74-106 mg/dL Problem List 1. Unstable angina Monitor, cardiology consult, echocardiogram 2. Benign essential HTN Monitor, antihypertensives 3. DM II with hyperglycemia Monitor, insulin ss 4. CAD s/p PTCA x2 Monitor restart ASA and Brilinta 5. Obesity Monitor, cardiac diet 6. Gout Monitor, medications 7. BPH Monitor, restart Flomax 8. HLD Monitor, restart Atorvastatin, lipid panel Assessment/Plan Subjective: Patient is awake and alert. Objective: Patient has a history of CAD status post stent x 2. I discussed plan of care with patient and patient's . Patient is apparently not compliant taking his Brilinta and aspirin. Patient sometimes goes days without taking anticoagulation. He states when he does take it regularly it is only once a day. Patient has apparently been having chest pain for several weeks. Plan: Continue current treatment. Cardiology evaluation in progress. Echocardiogram is pending. Obtain lipid panel. Obtain hemoglobin A1c. Continue insulin sliding scale. Monitor on EKG. Plan discussed with: Patient, Other ISA GRANT NP Mar 03, 2025 09:00
[2025-03-03] MEDS: ENOXAPARIN SOD 100 MG/1 ML SYRINGE SC SCH (09:48)
[2025-03-03] MEDS ORDERED: ENOXAPARIN SOD 40 MG/0.4 ML SYRINGE SC SCH (10:00)
[2025-03-03] MEDS ORDERED: ALL100T PO (10:25)
[2025-03-03] MEDS ORDERED: DEXTROSE (50%) 50ML SYRG IV PRN (11:15)
[2025-03-03] MEDS: ACCU-CHEK COMFORT CURVE STRIP VI SCH (11:30)
[2025-03-03 11:54] LABS: Cholesterol 198 mg/dL (< 200)
[2025-03-03 12:01] LABS: HDL Cholesterol 27 mg/dL (40-59)
[2025-03-03] MEDS: InsuLIN REG 1unit/0.01ml Soln (100units/ml) SC SCH ×2 (12:15→20:58)
[2025-03-03] MEDS: METOPROLOL TARTRATE 25 MG TAB PO SCH (12:17)
--- NOTE | 2025-03-03 14:25 | DVHSR ---
APPROVED REPORT EXAM: Two-dimensional and M-mode echocardiogram with Doppler and color Doppler. Blood Pressure: 155/100 mmHg INDICATION Chest Pain RISK FACTORS Height: 5' 10", Weight: 215 DIMENSIONS LVDd5.6 (3.8-5.7cm)LA (2D)4.0 (1.9-4.0cm)Aortic Root3.8 (2.0-3.7cm) LVDs4.9 (2.5-4.0cm)LA (MM) (1.9-4.0cm)Aortic Cusp Exc2.1 (1.5-2.0cm) EF (%) 25.0 (55-70%)Rt. Atrium3.9 (1.9-4.0cm)Asc. Aorta cm IVSd1.3 (0.7-1.1cm)RV (D) (1.8-2.4cm) PWd1.2 (0.7-1.1cm) Mitral Valve MitralMitral Stenosis E wave0.60m/sMV Mean GR.mmHg A wave0.80m/sMV Peak GR.mmHg E/A ratio0.82D MVAcm2 Aortic Valve Aortic ValveAortic Stenosis V10.70m/[place] Mean GR.3mmHg V21.10m/[place] Peak GR.5mmHg LVOT Diameter2.5 (1.8-2.4cm)Doppler AVA3.12cm2 AI P 1/2 [id number] Conclusion Left ventricle: Mild concentric left ventricular hypertrophy was seen. LVEF was around 50%. Mild d iffuse hypokinesis of left ventricle was seen. Abnormal relaxation of left ventricular diastolic fun ction was observed Right ventricle: Right ventricle was normal-sized with normal systolic function. Both atria were no rmal-sized. Aortic valve was not well visualized. Mild aortic insufficiency was seen. There was no aortic steno sis. Mild mitral regurgitation was seen. Trace tricuspid regurgitation was seen. Pulmonary valve w as not well visualized. As there was no good tricuspid regurgitation jet, right ventricular systolic pressure could not be es timated.
[2025-03-03] MEDS: ASPirin-EC 325mg tab PO ONE (14:29)
[2025-03-03] MEDS: TICAGRELOR 90 MG TAB PO ONE (14:30)
--- NOTE | 2025-03-03 14:40 | DVHINCON2 ---
Date of service: Mar 03, 2025 History of Present Illness HPI Patient is a 54-year-old gentleman who presented with few days of chest discomfort. Chest pain worsened and he decided to come to the hospital. It is of note that the patient does have history of coronary artery disease and has been not compliant with his medications. Last left heart catheterization was March 2024 when he had PCI to LAD. Previously he had systolic heart failure and then ejection fraction improved. Cardiology is involved for cardiac aspects of care. It seems that the patient's blood pressure at home was in 200s. Is being managed in telemetry. Home Meds Active Scripts Oxycodone Hcl (OXYCODONE HCL) 5 Mg Tb, 5 MG PO BID, #10 TAB Prov:KEE AVALOS 11/16/24 Insulin Pen Needle (Bd Ultra-Fine Mini Pen Ne) 31GX3/16 Mis, 16 XX QID, #100 Patient injects short acting three times a day and long acting once daily. may substitute brand and quantity. Prov:ISA GRANT NP 04/05/24 Blood Glucose Monitoring Suppl (EASY TOUCH GLUCOSE MONITO) Monitor Kit, EA XX, #1 I glucometer plus lancets and test strips. May substitute. Patient needs to test three times a day before meals, 1 month supply Prov:ISA GRANT NP 04/05/24 Insulin Lispro (Humalog Kwikpen) 100 Unit/Ml Inj, 100 UNIT SC AC for 30 Days, #1 INJ Inject 5 units a day before meals Prov:ISA GRANT NP 04/05/24 Insulin Glargine (Insulin Glargine Solostar) 100 Unit/Ml Inj, 100 UNIT SC DAILY for 30 Days, #1 INJ Inject 10 units sub q nightly Prov:ISA GRANT G[employer] APPLIANCE SERVICER 04/05/24 Ticagrelor Base (BRILINTA) 90 Mg Tab, 90 MG PO BID for 30 Days, #60 TAB Prov:ISA GRANT G[employer]PLIANCE SERVICER 04/05/24 Metoprolol Tartrate (Metoprolol Tartrate) 25 Mg Tab, 25 MG PO TID for 30 Days, #60 MG Prov:ISA GRANT G[employer]PLIANCE SERVICER 04/05/24 Oxycodone HCl (Oxycodone Hydrochloride) 5 Mg Tab, 5 MG PO TID PRN for 4 Days, #12 TAB Prov:DASIA HAWKINS MD 03/28/24 Tamsulosin Hcl (Flomax) 0.4 Mg Cap, 1 CAP PO DAILY for 14 Days, #30 CAP 11 Refills Prov:DASIA HAWKINS MD 03/28/24 Reported Medications Allopurinol (ZYLOPRIM TABLET) 100 Mg Tb, 1 TAB PO DAILY, #30 TAB 5 Refills 03/03/25 Cholecalciferol (Vitamin D3) 50,000 Unit Cap, 1 CAP PO QWEEKLY 03/28/24 Clopidogrel Bisulfate (CLOPIDOGREL) 75 Mg Tab, 1 TAB PO DAILY, #90 TAB 1 Refill 09/19/18 Aspirin (Aspir-Low) 81 Mg Tab, 81 MG PO DAILY for 30 Days, MG 09/19/18 Nitroglycerin (NTROSTAT SUBLINGUAL) 0.4 Mg Sl, 0.4 MG SL PRN *MAY REPEAT EVERY 5 MINUTES X 3 TOTAL IF NO RELIEF, INITIATE ANALGESIC THERAPY. NOTIFY PHYSICIAN *Do not crush. 09/19/18 Atorvastatin Calcium (ATORVASTATIN CALCIUM) 40 Mg Tab, 1 TAB PO QPM, #90 TAB 3 Refills 09/19/18 Past Medical History Others Past medical history includes morbid obesity, diabetes mellitus, CKD, BPH, gout, kidney stones, hypertension, hyperlipidemia, coronary artery disease and status post PCI and history of systolic heart failure which later on improved (HFimp EF). He is ex-smoker. Does have baseline history of noncompliance with medications Patient Family History: Gout Smoker: Quit Alocohol: None Drugs: None Lives with: With family Review of Systems Constitutional: No symptom reported Ears, Nose, & Throat: No symptom reported Eyes: No symptom reported Pulmonary/Respiratory: No symptom reported, Cough Cardiovascular: Chest Pain All Other Systems Fourteen point review of system was performed. Relevant findings as per above and as per HPI. Otherwise negative H&P Exam Vital Signs Vital Signs Date Time Temp Pulse Resp B/P (MAP) Pulse Ox O2 Delivery O2 Flow Rate FiO2 03/03/25 13:00 97.7 81 19 154/97 (116) 94 97.7 03/03/25 08:00 Room Air* 0 21 General Appeara: Well developed Head Exam: Normal inspection Pulmonary/Respiratory: Chest non-tender, Lungs clear Cardiovascular/Chest: Regular rate, Systolic murmur Peripheral Pulses: 2+ carotid (R), 2+ carotid (L), 2+ femoral (R), 2+ femoral (L) Abdominal Exam: Normal bowel sounds, Soft Neuro/Mental St: Alert, Oriented Appearance: Appropriate appearance Eye contact/ Speech: Cooperative Labs/Xrays Labs Test 03/03/25 13:02 03/03/25 11:39 03/03/25 05:58 03/02/25 20:11 Range/Units POC Glucose 396 H 70-106 mg/dl White Blood Count 7.5 4.4-10.8 10^3/uL Red Blood Count 4.58 4.5-5.90 10^6/uL Hemoglobin 14.2 13.5-17.5 g/dL Hematocrit 40.4 L 41.0-53.0 % Mean Corpuscular Volume 88.2 80.0-100.0 fL Mean Corpuscular Hemoglobin 30.9 28.0-32.0 pg Mean Corpuscular Hemoglobin Concent 35.0 32.0-36.0 g/dL Red Cell Distribution Width 13.2 11.8-14.3 % Platelet Count 300 140-450 10^3/uL Mean Platelet Volume 7.9 6.9-10.8 fL Neutrophils (%) (Auto) 52.4 37.0-80.0 % Lymphocytes (%) (Auto) 35.8 10.0-50.0 % Monocytes (%) (Auto) 5.5 0.0-12.0 % Eosinophils (%) (Auto) 5.3 0.0-7.0 % Basophils (%) (Auto) 1.0 0.0-2.0 % Neutrophils # (Auto) 3.9 1.6-8.6 10 ^3/uL Lymphocytes # (Auto) 2.7 0.4-5.4 10 ^3/uL Monocytes # (Auto) 0.4 0-1.3 10 ^3/uL Eosinophils # (Auto) 0.4 0-0.8 10 ^3/uL Basophils # (Auto) 0.1 0-0.2 10 ^3/uL Nucleated Red Blood Cells 0.1 % Sodium Level 138 136-145 mmol/L Potassium Level 4.1 3.5-5.1 mmol/L Chloride Level 105 98-107 mmol/L Carbon Dioxide Level 22 20-31 mmol/L Anion Gap 11 5-15 Blood Urea Nitrogen 14 9-23 mg/dL Creatinine 1.47 H 0.700-1.30 mg/dL Glomerular Filtration Rate Calc 56 >90 mL/min BUN/Creatinine Ratio 9.5 L 10.0-20.0 Serum Glucose 245 #H 74-106 mg/dL Hemoglobin A1c 12.1 H <5.7 % A1C Calcium Level 9.0 8.7-10.4 mg/dL Total Bilirubin 0.4 0.2-1.0 mg/dL Aspartate Amino Transferase (AST) 14 13-40 U/L Alanine Aminotransferase (ALT) 17 7-40 U/L Alkaline Phosphatase 136 H 46-116 U/L B-Type Natriuretic Peptide 146.39 0-100 pg/mL Total Protein 6.5 5.7-8.2 g/dL Albumin 4.0 3.2-4.8 g/dL Cholesterol Level 198 < 200 mg/dL LDL Cholesterol 55 < 100 mg/dL HDL Cholesterol 27 L 40-59 mg/dL Troponin I High Sensitivity 599 *H </=54 ng/L Test 03/02/25 19:55 Range/Units Urine Color Light-yellow Yellow Urine Clarity Clear Clear Urine pH 5.0 5.0-9.0 Urine Specific [place] 1.026 1.001-1.035 Urine Protein Negative Negative Urine Ketones Trace Negative Urine Blood Negative Negative /uL Urine Nitrite Negative Negative Urine Bilirubin Negative Negative Urine Urobilinogen Normal Negative mg/dL Urine Leukocyte Esterase Negative Negative /uL Urine RBC 1 0 - 3 /hpf Urine Microscopic WBC 1 0-3 /HPF Urine Squamous Epithelial Cells None seen <5 /hpf Urine Bacteria None seen None Seen /hpf Urine Glucose 4+ H Normal mg/dL Assessment/Plan Plan Patient is a 54-year-old gentleman who presented with few days of chest discomfort. Chest pain worsened and he decided to come to the hospital. It is of note that the patient does have history of coronary artery disease and has been not compliant with his medications. Last left heart catheterization was March 2024 when he had PCI to LAD. Previously he had systolic heart failure and then ejection fraction improved. Cardiology is involved for cardiac aspects of care. It seems that the patient's blood pressure at home was in 200s. Is being managed in telemetry. Not in acute distress. No active chest pain. No JVD. Lying flat in bed. No carotid bruit. No goiter. Not using accessory muscles of breathing. Lungs are clear to auscultation. Cardiac: Regular, no thrill/gallop. Systolic murmur 2/6 in the apex is heard. Abdomen is soft. Bowel sound is positive. There is no gross mass/hepatomegaly. Extremities do not reveal edema. Dorsalis pedis is 2+ bilateral. There was no gross lateralized neurologic deficit. Past medical history includes morbid obesity, diabetes mellitus, CKD, BPH, gout, kidney stones, hypertension, hyperlipidemia, coronary artery disease and status post PCI and history of systolic heart failure which later on improved (HFimp EF). He is ex-smoker. Does have baseline history of noncompliance with medications Echocardiogram of July 09 2022 revealed ejection fraction of 25%, dilated 4 chambers, moderate MR/AI and end-stage dilated cardiomyopathy. 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 There was patent stents in LCX. There was 95% proximal LAD disease for which PCI was performed. Echocardiogram (performed in the office) in August 2024 revealed preserved left ventricular systolic function Creatinine: 1.69 - 1.47 Potassium: 4.7 - 4.1 D-dimer: <0.19 Troponin: 580 - 586 - 599 EKG revealed sinus rhythm with nonspecific ST-T changes and old inferior [place] Tele reveals sinus rhythm Echocardiogram revealed: Left ventricle: Mild concentric left ventricular hypertrophy was seen. LVEF was around 50%. Mild diffuse hypokinesis of left ventricle was seen. Abnormal relaxation of left ventricular diastolic function was observed. Right ventricle: Right ventricle was normal-sized with normal systolic function. Both atria were normal-sized. Aortic valve was not well visualized. Mild aortic insufficiency was seen. There was no aortic stenosis. Mild mitral regurgitation was seen. Trace tricuspid regurgitation was seen. Pulmonary valve was not well visualized. As there was no good tricuspid regurgitation jet, right ventricular systolic pressure could not be estimated. Patient is a 54-year-old gentleman who presented with intermittent / atypical chest pain. Does have baseline history of coronary artery disease and has had multiple stents. Has not been compliant with his medications (mentions that he was not taking his Brilinta correctly). Troponin has been elevated. It is of note that the troponin has remained the same and ACS can not be proven. Still as the patient has risk factors and past history and presented with chest pain, ischemic workup can be justified/is suggested. Did have hypertension in the field. Hypertensive emergency could have contributed to the clinical picture. He is noncompliance which could have contributed to the clinical picture Chest pain Non-STEMI,? CHAVA on CKD Diabetes mellitus Obesity Hypertension Hyperlipidemia Noncompliance to medications Hypertensive emergency Cardiac suggestion for management: Manage on telemetry Follow-up electrolytes and kidney function tests and correct abnormalities Aspirin For now, continue Brilinta Therapeutic Lovenox is suggested at this point Chest x-ray Control diabetes Ischemic workup, cardiac catheterization tentatively on Wednesday morning Lifestyle and risk factor modification is advised Patient was counseled to be compliant with medications and followups Further evaluation and management depends on the above and clinical course Thank you for consultation A total of 75 minutes was spent reviewing the patient record, examining the pat ient, making a diagnostic and therapeutic plan, discussing this plan with medical personnel, following up on diagnostic studies and following the patient for clinical stability excluding any and all procedures. At least 50% of this time was spent in direct, [id number] contact. Thank you for allowing me to participate in this patient's care. Further recommendations will depend on patient's clinical course. Please do not hesitate to contact me if you have any questions or concerns. This medical document was created using electronic medical record system with [employer] computerized dictation system. Although this document has been carefully reviewed, there may still be some phonetic and typographical errors. These areas are purely typographical due to the imperfection of the software programs, and do not reflect any compromise in the patient's medical care. Plan discussed with: Patient, Other (nurse) SHAY CARRIZALES MD Mar 03, 2025 14:40
[2025-03-03 14:41] LABS: Triglycerides 974 mg/dL (< 150)
--- NOTE | 2025-03-03 15:20 | DVH ---
CHEST RADIOGRAPH Indication: CHEST PAIN, HX STEMI Technique: Single frontal view of the chest was obtained Comparison: XY CHEST PORTABLE on DOS: 04/02/24 FINDINGS: Lines and Tubes: None Lungs: No focal consolidation. Pleura: No effusion. No pneumothorax. Cardiomediastinal contours: Unremarkable Bones: No acute osseous abnormality. IMPRESSION: 1. No acute cardiopulmonary disease.
[2025-03-03] MEDS: TAMSULOSIN HYDROCHLORIDE 0.4 MG CAP PO SCH (16:58)
[2025-03-03] MEDS: TICAGRELOR 90 MG TAB PO SCH (20:53)
[2025-03-04] VITALS (8 sets, daily range): BP systolic 130–153; BP diastolic 91–101; PULSE 62–89; RESP 17–19; TEMP 97.6–97.9; O2SAT 93–97
[2025-03-04] MEDS: MELATONIN 5 MG TAB PO ONE (00:39)
[2025-03-04] MEDS: PANTOPRAZOLE 40 MG TAB PO SCH (05:06)
[2025-03-04 07:22] LABS: Urine Protein, UAD Negative (Negative)
--- NOTE | 2025-03-04 08:11 | DVHPN2 ---
Progress Note - Dictate Date Seen: Mar 04, 2025 Medical Necessity Reason Pt with a Central, PICC or Fol: No vital signs Vital Sign Date Time Temp Pulse Resp B/P (MAP) Pulse Ox O2 Delivery O2 Flow Rate FiO2 03/04/25 06:05 79 136/71 03/04/25 05:00 97.9 17 96 97.9 03/03/25 20:00 Room Air* 0 21 Total Intake and Output 03/03/25 03/03/25 03/04/25 15:00 23:00 07:00 Intake Total 1000 ml 950 ml 1400 ml Output Total 5 ml Balance 1000 ml 950 ml 1395 ml medications Current Medications Medications Dose Ordered Sig/Prince Route Start Time Stop Time Status Last Admin Dose Admin Ondansetron HCl 4 mg Q4HP PRN IV 03/02/25 18:45 Docusate Sodium 100 mg BIDPRN PRN PO 03/02/25 18:45 Morphine Sulfate 2 mg Q4HPRN PRN IV 03/02/25 18:45 Nitroglycerin 0.4 mg Q5MINP PRN SL 03/02/25 18:45 Morphine Sulfate 2 mg Q30M PRN IV 03/02/25 18:45 Enoxaparin Sodium 100 mg Q12HR SC 03/03/25 10:00 03/03/25 21:02 100 MG Sodium Chloride 1,000 ml @ 75 mls/hr [id number] IV 03/02/25 19:00 03/03/25 21:43 75 MLS/HR Allopurinol 100 mg DAILY PO 03/04/25 10:00 Metoprolol Tartrate 25 mg TID PO 03/03/25 14:00 03/04/25 05:05 25 MG Tamsulosin HCl 0.4 mg QPM PO 03/03/25 18:00 03/03/25 16:58 0.4 MG Pantoprazole Sodium 40 mg DAILY@0600 PO 03/04/25 06:00 03/04/25 05:06 40 MG Diagnostic Test (Pha) 1 strip ACHS 03/03/25 11:30 03/04/25 05:07 1 STRIP Insulin Human Regular HS SC 03/03/25 22:00 03/03/25 20:58 8 UNITS Insulin Human Regular AC SC 03/03/25 11:30 03/03/25 16:57 6 UNITS Dextrose 50 ml UD PRN IV 03/03/25 11:15 Aspirin 81 mg DAILY PO 03/04/25 10:00 Ticagrelor 90 mg BID PO 03/03/25 22:00 03/03/25 20:53 90 MG laboratory and microbiology Laboratory Tests 03/03/25 05:58 Test 03/03/25 05:58 Range/Units Serum Glucose 245 #H 74-106 mg/dL Assessment/Plan Patient is a 54-year-old gentleman who presented with few days of chest discomfort. Chest pain worsened and he decided to come to the hospital. It is of note that the patient does have history of coronary artery disease and has been not compliant with his medications. Last left heart catheterization was March 2024 when he had PCI to LAD. Previously he had systolic heart failure and then ejection fraction improved. Cardiology is involved for cardiac aspects of care. It seems that the patient's blood pressure at home was in 200s. Is being managed in telemetry. Not in acute distress. No active chest pain. No JVD. Lying flat in bed. No carotid bruit. No goiter. Not using accessory muscles of breathing. Lungs are clear to auscultation. Cardiac: Regular, no thrill/gallop. Systolic murmur 2/6 in the apex is heard. Abdomen is soft. Bowel sound is positive. There is no gross mass/hepatomegaly. Extremities do not reveal edema. Dorsalis pedis is 2+ bilateral. There was no gross lateralized neurologic deficit. Past medical history includes morbid obesity, diabetes mellitus, CKD, BPH, gout, kidney stones, hypertension, hyperlipidemia, coronary artery disease and status post PCI and history of systolic heart failure which later on improved (HFimp EF). He is ex-smoker. Does have baseline history of noncompliance with medications Echocardiogram of July 09 2022 revealed ejection fraction of 25%, dilated 4 chambers, moderate MR/AI and end-stage dilated cardiomyopathy. 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 There was patent stents in LCX. There was 95% proximal LAD disease for which PCI was performed. Echocardiogram (performed in the office) in August 2024 revealed preserved left ventricular systolic function Creatinine: 1.69 - 1.47 Potassium: 4.7 - 4.1 D-dimer: <0.19 Troponin: 580 - 586 - 599 BNP: 146.39 Hgb A1c: 12.1 Chest xry revealed: IMPRESSION: 1. No acute cardiopulmonary disease EKG revealed sinus rhythm with nonspecific ST-T changes and old inferior [place] Tele reveals sinus rhythm Echocardiogram revealed: Left ventricle: Mild concentric left ventricular hypertrophy was seen. LVEF was around 50%. Mild diffuse hypokinesis of left ventricle was seen. Abnormal relaxation of left ventricular diastolic function was observed. Right ventricle: Right ventricle was normal-sized with normal systolic function. Both atria were normal-sized. Aortic valve was not well visualized. Mild aortic insufficiency was seen. There was no aortic stenosis. Mild mitral regurgitation was seen. Trace tricuspid regurgitation was seen. Pulmonary valve was not well visualized. As there was no good tricuspid regurgitation jet, right ventricular systolic pressure could not be estimated. Patient is a 54-year-old gentleman who presented with intermittent / atypical chest pain. Does have baseline history of coronary artery disease and has had multiple stents. Has not been compliant with his medications (mentions that he was not taking his Brilinta correctly). Troponin has been elevated. It is of note that the troponin has remained the same and ACS can not be proven. Still as the patient has risk factors and past history and presented with chest pain, ischemic workup can be justified/is suggested. Did have hypertension in the field. Hypertensive emergency could have contributed to the clinical picture. He is noncompliance which could have contributed to the clinical picture Chest pain Non-STEMI,? CHAVA on CKD Diabetes mellitus Obesity Hypertension Hyperlipidemia Noncompliance to medications Hypertensive emergency non-compliant with meds including insulin Cardiac suggestion for management: Manage on telemetry Follow-up electrolytes and kidney function tests and correct abnormalities Aspirin For now, continue Brilinta Therapeutic Lovenox is suggested at this point Control diabetes Ischemic workup, cardiac catheterization tentatively on Wednesday morning Lifestyle and risk factor modification is advised Patient was counseled to be compliant with medications and followups Further evaluation and management depends on the above and clinical course A total of 55 minutes was spent reviewing the patient record, examining the patient, making a diagnostic and therapeutic plan, discussing this plan with medical personnel, following up on diagnostic studies and following the patient for clinical stability excluding any and all procedures. At least 50% of this time was spent in direct, [id number] contact. Thank you for allowing me to participate in this patient's care. Further recommendations will depend on patient's clinical course. Please do not hesitate to contact me if you have any questions or concerns. This medical document was created using electronic medical record system with [employer] computerized dictation system. Although this document has been carefully reviewed, there may still be some phonetic and typographical errors. These areas are purely typographical due to the imperfection of the software programs, and do not reflect any compromise in the patient's medical care. Plan discussed with: Patient, Other (nurse) SHAY CARRIZALES MD Mar 04, 2025 08:11
[2025-03-04] MEDS: ASPirin-EC 81 mg tab PO SCH (09:57)
[2025-03-04] MEDS: ALLOPURINOL 100 MG TAB PO SCH (10:01)
--- NOTE | 2025-03-04 11:52 | DVHPN2 ---
Progress Note - Dictate Date Seen: Mar 04, 2025 Medical Necessity Reason Pt with a Central, PICC or Fol: No vital signs Vital Sign Date Time Temp Pulse Resp B/P (MAP) Pulse Ox O2 Delivery O2 Flow Rate FiO2 03/04/25 08:35 97.6 76 19 145/99 (114) 93 97.6 03/04/25 08:00 Room Air* 0 21 Total Intake and Output 03/03/25 03/03/25 03/04/25 15:00 23:00 07:00 Intake Total 1000 ml 950 ml 1400 ml Output Total 5 ml Balance 1000 ml 950 ml 1395 ml medications Current Medications Medications Dose Ordered Sig/Prince Route Start Time Stop Time Status Last Admin Dose Admin Ondansetron HCl 4 mg Q4HP PRN IV 03/02/25 18:45 Docusate Sodium 100 mg BIDPRN PRN PO 03/02/25 18:45 Morphine Sulfate 2 mg Q4HPRN PRN IV 03/02/25 18:45 Nitroglycerin 0.4 mg Q5MINP PRN SL 03/02/25 18:45 Morphine Sulfate 2 mg Q30M PRN IV 03/02/25 18:45 Enoxaparin Sodium 100 mg Q12HR SC 03/03/25 10:00 03/04/25 10:19 100 MG Sodium Chloride 1,000 ml @ 75 mls/hr [id number] IV 03/02/25 19:00 03/04/25 10:14 75 MLS/HR Allopurinol 100 mg DAILY PO 03/04/25 10:00 03/04/25 10:01 100 MG Metoprolol Tartrate 25 mg TID PO 03/03/25 14:00 03/04/25 05:05 25 MG Tamsulosin HCl 0.4 mg QPM PO 03/03/25 18:00 03/03/25 16:58 0.4 MG Pantoprazole Sodium 40 mg DAILY@0600 PO 03/04/25 06:00 03/04/25 05:06 40 MG Diagnostic Test (Pha) 1 strip ACHS 03/03/25 11:30 03/04/25 05:07 1 STRIP Insulin Human Regular HS SC 03/03/25 22:00 03/03/25 20:58 8 UNITS Insulin Human Regular AC SC 03/03/25 11:30 03/03/25 16:57 6 UNITS Dextrose 50 ml UD PRN IV 03/03/25 11:15 Aspirin 81 mg DAILY PO 03/04/25 10:00 03/04/25 09:57 81 MG Ticagrelor 90 mg BID PO 03/03/25 22:00 03/04/25 09:57 90 MG objective General Appearance: alert, no distress HEENT: EOMI, PERRLA, normal external inspect of ears, no icterus, no nasal drainage Neck: no carotid bruit, no jugular venous distention (JVD), no lymphadenopathy Chest: normal thorax Respiratory: clear to auscultation, normal air movement Cardiovascular: regular rate and rhythm, no diastolic murmur, no jugular venous distention (JVD), no rub, no systolic murmur Abdominal: soft, no hepatomegaly, no mass, no splenomegaly, no tenderness Genitourinary: grossly normal external Musculoskeletal: no joint tenderness, no swelling Extremities: normal pulses, no calf tenderness, no clubbing, no cyanosis, no edema Skin: no bruising, no jaundice, no rash Neurological: alert, No focal deficit laboratory and microbiology Laboratory Tests 03/03/25 05:58 Test 03/03/25 05:58 Range/Units Serum Glucose 245 #H 74-106 mg/dL Problem List 1. Unstable angina Monitor, cardiology consult, echocardiogram 2. Benign essential HTN Monitor, antihypertensives 3. DM II with hyperglycemia Monitor, insulin ss 4. CAD s/p PTCA x2 Monitor restart ASA and Brilinta 5. Obesity Monitor, cardiac diet 6. Gout Monitor, medications 7. BPH Monitor, restart Flomax 8. HLD Monitor, restart Atorvastatin, lipid panel Assessment/Plan Subjective: Patient is awake and alert. Objective: Patient was admitted for unstable angina. He has a history of two stents and has not been compliant with his dual antiplatelet therapy. Apparently, he was only taking his pills once a day and inconsistently. Patient now presents with chest pain and was seen by cardiology. Plan: Continue current treatment. Plan for left heart cath tomorrow. Monitor on EKG. Plan discussed with: Patient, Other ISA GRANT NP Mar 04, 2025 11:52
--- NOTE | 2025-03-04 11:53 | DVHPN2 ---
Progress Note - Dictate Medical Necessity Reason Pt with a Central, PICC or Fol: No vital signs Vital Sign Date Time Temp Pulse Resp B/P (MAP) Pulse Ox O2 Delivery O2 Flow Rate FiO2 03/04/25 08:35 97.6 76 19 145/99 (114) 93 97.6 03/04/25 08:00 Room Air* 0 21 Total Intake and Output 03/03/25 03/03/25 03/04/25 15:00 23:00 07:00 Intake Total 1000 ml 950 ml 1400 ml Output Total 5 ml Balance 1000 ml 950 ml 1395 ml medications Current Medications Medications Dose Ordered Sig/Prince Route Start Time Stop Time Status Last Admin Dose Admin Ondansetron HCl 4 mg Q4HP PRN IV 03/02/25 18:45 Docusate Sodium 100 mg BIDPRN PRN PO 03/02/25 18:45 Morphine Sulfate 2 mg Q4HPRN PRN IV 03/02/25 18:45 Nitroglycerin 0.4 mg Q5MINP PRN SL 03/02/25 18:45 Morphine Sulfate 2 mg Q30M PRN IV 03/02/25 18:45 Enoxaparin Sodium 100 mg Q12HR SC 03/03/25 10:00 03/04/25 10:19 100 MG Sodium Chloride 1,000 ml @ 75 mls/hr [id number] IV 03/02/25 19:00 03/04/25 10:14 75 MLS/HR Allopurinol 100 mg DAILY PO 03/04/25 10:00 03/04/25 10:01 100 MG Metoprolol Tartrate 25 mg TID PO 03/03/25 14:00 03/04/25 05:05 25 MG Tamsulosin HCl 0.4 mg QPM PO 03/03/25 18:00 03/03/25 16:58 0.4 MG Pantoprazole Sodium 40 mg DAILY@0600 PO 03/04/25 06:00 03/04/25 05:06 40 MG Diagnostic Test (Pha) 1 strip ACHS 03/03/25 11:30 03/04/25 05:07 1 STRIP Insulin Human Regular HS SC 03/03/25 22:00 03/03/25 20:58 8 UNITS Insulin Human Regular AC SC 03/03/25 11:30 03/03/25 16:57 6 UNITS Dextrose 50 ml UD PRN IV 03/03/25 11:15 Aspirin 81 mg DAILY PO 03/04/25 10:00 03/04/25 09:57 81 MG Ticagrelor 90 mg BID PO 03/03/25 22:00 03/04/25 09:57 90 MG objective General Appearance: alert, no distress HEENT: EOMI, PERRLA, normal external inspect of ears, no icterus, no nasal drainage Neck: no carotid bruit, no jugular venous distention (JVD), no lymphadenopathy Chest: normal thorax Respiratory: clear to auscultation, normal air movement Cardiovascular: regular rate and rhythm, no diastolic murmur, no jugular venous distention (JVD), no rub, no systolic murmur Abdominal: soft, no hepatomegaly, no mass, no splenomegaly, no tenderness Genitourinary: grossly normal external Musculoskeletal: no joint tenderness, no swelling Extremities: normal pulses, no calf tenderness, no clubbing, no cyanosis, no edema Skin: no bruising, no jaundice, no rash Neurological: alert, No focal deficit laboratory and microbiology Laboratory Tests 03/03/25 05:58 Test 03/03/25 05:58 Range/Units Serum Glucose 245 #H 74-106 mg/dL Problem List 1. Unstable angina Monitor, cardiology consult, echocardiogram 2. Benign essential HTN Monitor, antihypertensives 3. DM II with hyperglycemia Monitor, insulin ss 4. CAD s/p PTCA x2 Monitor restart ASA and Brilinta 5. Obesity Monitor, cardiac diet 6. Gout Monitor, medications 7. BPH Monitor, restart Flomax 8. HLD Monitor, restart Atorvastatin, lipid panel Assessment/Plan Subjective: Patient is awake and alert. Objective: Patient has a history of CAD status post stent x 2. I discussed plan of care with patient and patient's . Patient is apparently not compliant taking his Brilinta and aspirin. Patient sometimes goes days without taking anticoagulation. He states when he does take it regularly it is only once a day. Patient has apparently been having chest pain for several weeks. Plan: Continue current treatment. Cardiology evaluation in progress. Echocardiogram is pending. Obtain lipid panel. Obtain hemoglobin A1c. Continue insulin sliding scale. Monitor on EKG. ISA GRANT NP Mar 04, 2025 11:53
[2025-03-04] MEDS: NITROGLYCERIN 0.4 MG SL TAB SL PRN (11:55)
[2025-03-04] MEDS: ALPRAZolam 0.5 MG TAB PO PRN (14:52)
[2025-03-04 21:11] LABS: Urine Protein, UAD Negative (Negative)
[2025-03-04] MEDS ORDERED: MELATONIN 5 MG TAB PO ONE (22:00)
[2025-03-05] VITALS (15 sets, daily range): BP systolic 134–165; BP diastolic 84–104; PULSE 65–82; RESP 12–20; TEMP 97.6–98.1; O2SAT 93–99
[2025-03-05 05:49] LABS: Hematocrit 42.7 % (41.0-53.0); Hemoglobin 15.0 g/dL (13.5-17.5); Mean Corpuscular Hemoglobin 31.5 pg (28.0-32.0); Mean Corpuscular Volume 89.5 fL (80.0-100.0); Nucleated Red Blood Cells % 0.1 %
[2025-03-05 06:01] LABS: INR 0.91 (0.9-1.15); Prothrombin Time 9.7 sec (9.3-11.8)
[2025-03-05 06:12] LABS: Alanine Aminotransferase 23 U/L (7-40); Albumin 4.5 g/dL (3.2-4.8); Anion Gap 12 (5-15); BUN/Creatinine Ratio 9.8 (10.0-20.0); Blood Urea Nitrogen 16 mg/dL (9-23); Calcium 9.7 mg/dL (8.7-10.4); Carbon Dioxide 22 mmol/L (20-31); Chloride 102 mmol/L (98-107); Magnesium 2.1 mg/dL (1.6-2.6); Potassium 3.6 mmol/L (3.5-5.1); Sodium 136 mmol/L (136-145); Total Protein 7.5 g/dL (5.7-8.2)
[2025-03-05 06:13] LABS: Bilirubin, Total 0.4 mg/dL (0.2-1.0)
[2025-03-05 06:21] LABS: Alkaline Phosphatase 150 U/L (46-116); Glucose 300 mg/dL (74-106)
--- NOTE | 2025-03-05 07:35 | ECG ---
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
--- NOTE | 2025-03-05 07:44 | DVHPN2 ---
Progress Note - Dictate Date Seen: Mar 05, 2025 Medical Necessity Reason Pt with a Central, PICC or Fol: No vital signs Vital Sign Date Time Temp Pulse Resp B/P (MAP) Pulse Ox O2 Delivery O2 Flow Rate FiO2 03/05/25 06:54 64 140/91 03/05/25 05:00 98.1 20 95 98.1 03/04/25 20:00 Nasal Cannula* 2 28 Total Intake and Output 03/04/25 03/04/25 03/05/25 15:00 23:00 07:00 Intake Total 1100 ml 1490 ml Balance 1100 ml 1490 ml medications Current Medications Medications Dose Ordered Sig/Prince Route Start Time Stop Time Status Last Admin Dose Admin Ondansetron HCl 4 mg Q4HP PRN IV 03/02/25 18:45 Docusate Sodium 100 mg BIDPRN PRN PO 03/02/25 18:45 Morphine Sulfate 2 mg Q4HPRN PRN IV 03/02/25 18:45 Nitroglycerin 0.4 mg Q5MINP PRN SL 03/02/25 18:45 03/04/25 11:55 0.4 MG Morphine Sulfate 2 mg Q30M PRN IV 03/02/25 18:45 Enoxaparin Sodium 100 mg Q12HR SC 03/03/25 10:00 03/04/25 15:22 100 MG Sodium Chloride 1,000 ml @ 75 mls/hr [id number] IV 03/02/25 19:00 03/05/25 00:45 75 MLS/HR Allopurinol 100 mg DAILY PO 03/04/25 10:00 03/04/25 10:01 100 MG Metoprolol Tartrate 25 mg TID PO 03/03/25 14:00 03/05/25 05:30 25 MG Tamsulosin HCl 0.4 mg QPM PO 03/03/25 18:00 03/04/25 17:28 0.4 MG Pantoprazole Sodium 40 mg DAILY@0600 PO 03/04/25 06:00 03/05/25 05:31 40 MG Diagnostic Test (Pha) 1 strip ACHS 03/03/25 11:30 03/05/25 06:52 1 STRIP Insulin Human Regular HS SC 03/03/25 22:00 03/03/25 20:58 8 UNITS Insulin Human Regular AC SC 03/03/25 11:30 03/03/25 16:57 6 UNITS Dextrose 50 ml UD PRN IV 03/03/25 11:15 Aspirin 81 mg DAILY PO 03/04/25 10:00 03/04/25 09:57 81 MG Ticagrelor 90 mg BID PO 03/03/25 22:00 03/04/25 21:19 90 MG Alprazolam 0.5 mg Q6HPRN PRN PO 03/04/25 14:30 03/04/25 14:52 0.5 MG objective General Appearance: alert, no distress HEENT: EOMI, PERRLA, normal external inspect of ears, no icterus, no nasal drainage Neck: no carotid bruit, no jugular venous distention (JVD), no lymphadenopathy Chest: normal thorax Respiratory: clear to auscultation, normal air movement Cardiovascular: regular rate and rhythm, no diastolic murmur, no jugular venous distention (JVD), no rub, no systolic murmur Abdominal: soft, no hepatomegaly, no mass, no splenomegaly, no tenderness Genitourinary: grossly normal external Musculoskeletal: no joint tenderness, no swelling Extremities: normal pulses, no calf tenderness, no clubbing, no cyanosis, no edema Skin: no bruising, no jaundice, no rash Neurological: alert, No focal deficit laboratory and microbiology Laboratory Tests 03/05/25 05:09 Test 03/05/25 05:09 Range/Units Serum Glucose 300 H 74-106 mg/dL Problem List 1. Unstable angina Monitor, cardiology consult, echocardiogram 2. Benign essential HTN Monitor, antihypertensives 3. DM II with hyperglycemia Monitor, insulin ss 4. CAD s/p PTCA x2 Monitor restart ASA and Brilinta 5. Obesity Monitor, cardiac diet 6. Gout Monitor, medications 7. BPH Monitor, restart Flomax 8. HLD Monitor, restart Atorvastatin, lipid panel Assessment/Plan subjective Patient was not during assessment. Patient was taken down to Radio Interference Supervisor for left heart cath by . Objective Patient was admitted for chest pain and shortness of breath. Patient has a prior history of stent x 2. Patient has not been compliant with taking his Brilinta and aspirin. Plan Continue current treatment. Monitor on EKG. Patient having heart cath today. Cardiology recommendations appreciated. Plan discussed with: ISA James NP Mar 05, 2025 07:44
[2025-03-05] MEDS: IODIXANOL 320MG/ML 100ML BTL IV ONE ×4 (08:39→10:08)
[2025-03-05] MEDS: LIDOCAINE 2%HCL (LOCAL ANESTH.) INJ 20ML MDV ONE (09:24)
[2025-03-05] MEDS: SODIUM CHL 0.9% 50 ML ONE ×2 (09:24→10:06)
[2025-03-05] MEDS: HEPARIN SODIUM (PORCINE) 5000 UNITS/ML 1ML VIAL ONE (09:24)
[2025-03-05] MEDS: VERAPAMIL 2.5MG/ML INJ 2ML VIAL IV ONE (09:24)
[2025-03-05] MEDS: ANGIOMAX 250 MG VIAL IV ONE ×2 (09:24→10:06)
[2025-03-05] MEDS: MIDAZOLAM HCL 2MG/2ML 2ml VIAL (1mg/ml) ONE ×2 (09:24→10:07)
[2025-03-05] MEDS: fentaNYL CITRATE 100 MCG/2 ML VL ONE ×2 (09:24→10:09)
[2025-03-05] MEDS: NALOXONE HCL 0.4 MG/ML VIAL ONE (10:07)
--- NOTE | 2025-03-05 10:12 | DVHOP2 ---
Operative Report Procedures performed: Left heart catheterization and bilateral coronary angiogram PCI (drug-eluting stent deployment) of mid LAD PCI (drug-eluting stent deployment) of 1st obtuse marginal. 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 There was no ob structive lesions. LAD: LAD was coming off the left main. It provided a medium-sized diagonal which was jailed. Second diagonal was small-sized with no significant disease. There was a patent stent with 10% in-stent stenosis in proximal section of the LAD. Mid LAD had focal 95% lesion. LCX: LCX was coming off the left main. First OM had 95% focal lesion. Second OM had 90% long lesion. RCA was CELL FEED DEPARTMENT SUPERVISOR at its proximal section (known from prior left heart catheterization). There was zjqw-zk-ulmxu collaterals to distal sections of RCA/RPDA Presentation: Patient is a 54-year-old gentleman with history of diabetes mellitus, hypertension, coronary artery disease and CKD. He presented with chest pain. Was found to have increased troponin. He has not been compliant with his medication and follow up. Echocardiogram revealed ejection fraction of 50%. Patient was sent for cardiac catheterization. Procedure: After obtaining informed consent, the patient was brought to label stamper. He was prepped and draped in sterile fashion. Right radial artery was used for access site. In total, 3 mg of Versed and 150 mcg of fentanyl were used for moderate sedation (more than 45 minutes). Using Seldinger technique, the right radial artery was accessed and a six [place] slender sheath was inserted into it. 2.5 mg of verapamil and 100 mcg of nitroglycerin were given as a cocktail into right radial sheath. A 5 [place] tiger 4 diagnostic catheter was used to perform left heart catheterization (obtaining pressures and perfo rming left ventriculography) and right coronary angiography. A 6 [place] XB 3.5 guiding catheter was used to access the left coronary system and left coronary angiography was performed. We did recognize the diseases in mid LAD and OM1/OM2. RCA lesion was known to be CELL FEED DEPARTMENT SUPERVISOR from before. Decision was made to manage RCA lesion medically. The decision was made to proceed with intervention in LAD/obtuse marginal vessels. Patient was started on Angiomax. A run-through wire was used to cross the lesion of the LAD. A 2.5 x 10 compliant balloon was used for pre-dilatation of mid LAD lesion. A 2.5 x 15 drug-eluting stent was deployed in mid LAD. A 2.5 x 12 noncompliant balloon was used for postdilatation. At this point, we paid attention to the circumflex arteries lesions (OM1/OM2). A 2nd run-through was used to cross the lesions into the OM2. A 2.0 compliant balloon was used for pre dilatation. We did put a 2.25 x 30 drug-eluting stent in 2nd obtuse marginal. Later on we put another 2.25 x 12 drug-eluting stent at the proximal section of the 2nd marginal (inflated to 16 atmospheres). The run-through wire from LAD was put inside the OM1 vessel. The 2.0 compliant balloon was used for pre dilatation of the OM1 vessel. A 2.25 x 12 drug-eluting stent was deployed across the lesion in OM1 (inflated to 16 atmospheres). Repeat angiography revealed well deployed stents. It is of note that prior to interventions, KAUSHAL flow in LAD and LCX (both obtuse marginals) was KAUSHAL 3 flow. Post intervention, KAUSHAL flow in LAD/obtuse marginal one and obtuse marginal two vessels remained KAUSHAL 3 flow. Post intervention, remaining disease in mid LAD was 5%. Postintervention, remaining disease in obtuse marginal one-obtuse marginal two vessels were 5-5%. There was no dissection/ hematoma/perforation. Patient tolerated procedure with no complication. Right radial artery access site was managed by deploying a TR band. Fluoroscopy time: 20.0 minutes contrast: 265 mL of Visipaque SHAY CARRIZALES MD Mar 05, 2025 10:12
--- NOTE | 2025-03-05 10:16 | DVHPN2 ---
Progress Note - Dictate Date Seen: Mar 05, 2025 Medical Necessity Reason Pt with a Central, PICC or Fol: No vital signs Vital Sign Date Time Temp Pulse Resp B/P (MAP) Pulse Ox O2 Delivery O2 Flow Rate FiO2 03/05/25 06:54 64 140/91 03/05/25 05:00 98.1 20 95 98.1 03/04/25 20:00 Nasal Cannula* 2 28 Total Intake and Output 03/04/25 03/04/25 03/05/25 15:00 23:00 07:00 Intake Total 1100 ml 1490 ml Balance 1100 ml 1490 ml medications Current Medications Medications Dose Ordered Sig/Prince Route Start Time Stop Time Status Last Admin Dose Admin Ondansetron HCl 4 mg Q4HP PRN IV 03/02/25 18:45 Docusate Sodium 100 mg BIDPRN PRN PO 03/02/25 18:45 Morphine Sulfate 2 mg Q4HPRN PRN IV 03/02/25 18:45 Nitroglycerin 0.4 mg Q5MINP PRN SL 03/02/25 18:45 03/04/25 11:55 0.4 MG Morphine Sulfate 2 mg Q30M PRN IV 03/02/25 18:45 Enoxaparin Sodium 100 mg Q12HR SC 03/03/25 10:00 03/04/25 15:22 100 MG Sodium Chloride 1,000 ml @ 75 mls/hr [id number] IV 03/02/25 19:00 03/05/25 00:45 75 MLS/HR Allopurinol 100 mg DAILY PO 03/04/25 10:00 03/04/25 10:01 100 MG Metoprolol Tartrate 25 mg TID PO 03/03/25 14:00 03/05/25 05:30 25 MG Tamsulosin HCl 0.4 mg QPM PO 03/03/25 18:00 03/04/25 17:28 0.4 MG Pantoprazole Sodium 40 mg DAILY@0600 PO 03/04/25 06:00 03/05/25 05:31 40 MG Diagnostic Test (Pha) 1 strip ACHS 03/03/25 11:30 03/05/25 06:52 1 STRIP Insulin Human Regular HS SC 03/03/25 22:00 03/03/25 20:58 8 UNITS Insulin Human Regular AC SC 03/03/25 11:30 03/03/25 16:57 6 UNITS Dextrose 50 ml UD PRN IV 03/03/25 11:15 Aspirin 81 mg DAILY PO 03/04/25 10:00 03/04/25 09:57 81 MG Ticagrelor 90 mg BID PO 03/03/25 22:00 03/04/25 21:19 90 MG Alprazolam 0.5 mg Q6HPRN PRN PO 03/04/25 14:30 03/04/25 14:52 0.5 MG laboratory and microbiology Laboratory Tests 03/05/25 05:09 Test 03/05/25 05:09 Range/Units Serum Glucose 300 H 74-106 mg/dL Assessment/Plan Patient is a 54-year-old gentleman who presented with few days of chest discomfort. Chest pain worsened and he decided to come to the hospital. It is of note that the patient does have history of coronary artery disease and has been not compliant with his medications. Last left heart catheterization was March 2024 when he had PCI to LAD. Previously he had systolic heart failure and then ejection fraction improved. Cardiology is involved for cardiac aspects of care. It seems that the patient's blood pressure at home was in 200s. Is being managed in telemetry. Not in acute distress. No active chest pain. No JVD. Lying flat in bed. No carotid bruit. No goiter. Not using accessory muscles of breathing. Lungs are clear to auscultation. Cardiac: Regular, no thrill/gallop. Systolic murmur 2/6 in the apex is heard. Abdomen is soft. Bowel sound is positive. There is no gross mass/hepatomegaly. Extremities do not reveal edema. Dorsalis pedis is 2+ bilateral. There was no gross lateralized neurologic deficit. Past medical history includes morbid obesity, diabetes mellitus, CKD, BPH, gout, kidney stones, hypertension, hyperlipidemia, coronary artery disease and status post PCI and history of systolic heart failure which later on improved (HFimp EF). He is ex-smoker. Does have baseline history of noncompliance with medications Echocardiogram of July 09 2022 revealed ejection fraction of 25%, dilated 4 chambers, moderate MR/AI and end-stage dilated cardiomyopathy. Left heart catheterization of April 01, 2024 revealed proximal RCA to be CLAIMS CONFIGURATION ANALYST with [id number] collaterals. There was patent stents in LCX. There was 95% proximal LAD disease for which PCI was performed. Echocardiogram (performed in the office) in August 2024 revealed preserved left ventricular systolic function Creatinine: 1.69 - 1.47 - 1.63 Potassium: 4.7 - 4.1 - 3.6 D-dimer: <0.19 - 0.20 Troponin: 580 - 586 - 599 BNP: 146.39 Hgb A1c: 12.1 Chest xry revealed: IMPRESSION: 1. No acute cardiopulmonary disease EKG revealed sinus rhythm with nonspecific ST-T changes and old inferior MA Tele reveals sinus rhythm Echocardiogram revealed: Left ventricle: Mild concentric left ventricular hypertrophy was seen. LVEF was around 50%. Mild diffuse hypokinesis of left ventricle was seen. Abnormal relaxation of left ventricular diastolic function was observed. Right ventricle: Right ventricle was normal-sized with normal systolic function. Both atria were normal-sized. Aortic valve was not well visualized. Mild aortic insufficiency was seen. There was no aortic stenosis. Mild mitral regurgitation was seen. Trace tricuspid regurgitation was seen. Pulmonary valve was not well visualized. As there was no good tricuspid regurgitation jet, right ventricular systolic pressure could not be estimated. Left heart catheterization was performed. Patient was found to have triple- vessel coronary artery disease. RCA was known to be CLAIMS CONFIGURATION ANALYST with collaterals from left. Patient received PCI (drug-eluting stent deployment) to mid LAD. He also received drug-eluting stent in OM1 and also in OM2. It was loaded with aspirin/Plavix. Patient is a 54-year-old gentleman who presented with intermittent / atypical chest pain. Does have baseline history of coronary artery disease and has had multiple stents. Has not been compliant with his medications (mentions that he was not taking his Brilinta correctly). Troponin has been elevated. It is of note that the troponin has remained the same and ACS can not be proven. Still as the patient has risk factors and past history and presented with chest pain, ischemic workup can be justified/is suggested. Did have hypertension in the field. Hypertensive emergency could have contributed to the clinical picture. He is noncompliance which could have contributed to the clinical picture Chest pain Non-STEMI,? CHAVA on CKD Diabetes mellitus Obesity Hypertension Hyperlipidemia Noncompliance to medications Hypertensive emergency non-compliant with meds including insulin Cardiac suggestion for management: Manage on telemetry Follow-up electrolytes and kidney function tests and correct abnormalities Aspirin Plavix: 75 mg daily We can stop therapeutic Lovenox High potency statin, beta mireille, CAMACHO inhibitor versus ARB Control diabetes Patient was counseled to be compliant with medication and follow up Lifestyle and risk factor modification is advised Further evaluation and management depends on the above and clinical course A total of 55 minutes was spent reviewing the patient record, examining the patient, making a diagnostic and therapeutic plan, discussing this plan with medical personnel, following up on diagnostic studies and following the patient for clinical stability excluding any and all procedures. At least 50% of this time was spent in direct, [id number] contact. Thank you for allowing me to participate in this patient's care. Further recommendations will depend on patient's clinical course. Please do not hesitate to contact me if you have any questions or concerns. This medical document was created using electronic medical record system with [employer] computerized dictation system. Although this document has been carefully reviewed, there may still be some phonetic and typographical errors. These areas are purely typographical due to the imperfection of the software programs, and do not reflect any compromise in the patient's medical care. Plan discussed with: Patient, Other (nurse) SHAY CARRIZALES MD Mar 05, 2025 10:16
[2025-03-05] MEDS: CLOPIDOGREL BISULFATE 75 MG TAB ONE (10:42)
[2025-03-05] MEDS: MORPHINE SULFATE INJ 2 MG/ml SYRG IV PRN (12:09)
[2025-03-05] MEDS: SODIUM CHLORIDE 0.9% 1,000 ML IV ONE (12:18)
[2025-03-05] MEDS: ATORVASTATIN 20 MG TAB PO SCH (22:22)
[2025-03-05] MEDS: ZOLPIDEM TARTRATE 5 MG TAB PO PRN (23:24)
[2025-03-06] VITALS (10 sets, daily range): BP systolic 129–150; BP diastolic 8–99; PULSE 68–92; RESP 17–19; TEMP 97.5–98.3; O2SAT 93–99
[2025-03-06] MEDS: MORPHINE SULFATE INJ 2 MG/ml SYRG IV PRN (05:20)
--- NOTE | 2025-03-06 07:37 | DVHPN2 ---
Progress Note - Dictate Date Seen: Mar 06, 2025 Medical Necessity Reason Pt with a Central, PICC or Fol: No vital signs Vital Sign Date Time Temp Pulse Resp B/P (MAP) Pulse Ox O2 Delivery O2 Flow Rate FiO2 03/06/25 06:05 79 131/90 03/06/25 05:58 20 03/06/25 05:00 97.9 95 97.9 03/05/25 20:00 Nasal Cannula* 2 28 Total Intake and Output 03/05/25 03/05/25 03/06/25 15:00 23:00 07:00 Intake Total 520 ml 700 ml Balance 520 ml 700 ml medications Current Medications Medications Dose Ordered Sig/Prince Route Start Time Stop Time Status Last Admin Dose Admin Ondansetron HCl 4 mg Q4HP PRN IV 03/02/25 18:45 Docusate Sodium 100 mg BIDPRN PRN PO 03/02/25 18:45 Morphine Sulfate 2 mg Q4HPRN PRN IV 03/02/25 18:45 03/05/25 12:09 2 MG Nitroglycerin 0.4 mg Q5MINP PRN SL 03/02/25 18:45 03/04/25 11:55 0.4 MG Morphine Sulfate 2 mg Q30M PRN IV 03/02/25 18:45 03/06/25 05:20 2 MG Sodium Chloride 1,000 ml @ 75 mls/hr [id number] IV 03/02/25 19:00 03/06/25 03:17 75 MLS/HR Allopurinol 100 mg DAILY PO 03/04/25 10:00 03/05/25 12:08 100 MG Metoprolol Tartrate 25 mg TID PO 03/03/25 14:00 03/06/25 06:05 25 MG Tamsulosin HCl 0.4 mg QPM PO 03/03/25 18:00 03/05/25 18:26 0.4 MG Pantoprazole Sodium 40 mg DAILY@0600 PO 03/04/25 06:00 03/06/25 06:04 40 MG Diagnostic Test (Pha) 1 strip ACHS 03/03/25 11:30 03/06/25 07:00 1 STRIP Insulin Human Regular HS SC 03/03/25 22:00 03/03/25 20:58 8 UNITS Insulin Human Regular AC SC 03/03/25 11:30 03/03/25 16:57 6 UNITS Dextrose 50 ml UD PRN IV 03/03/25 11:15 Aspirin 81 mg DAILY PO 03/04/25 10:00 03/04/25 09:57 81 MG Alprazolam 0.5 mg Q6HPRN PRN PO 03/04/25 14:30 03/05/25 13:14 0.5 MG Atorvastatin Calcium 40 mg HS PO 03/05/25 22:00 03/05/25 22:22 40 MG Clopidogrel Bisulfate 75 mg DAILY PO 03/06/25 10:00 Clopidogrel Bisulfate 75 mg DAILY PO 03/06/25 10:00 Zolpidem Tartrate 5 mg HSPRN PRN PO 03/05/25 21:45 03/05/25 23:24 5 MG laboratory and microbiology Laboratory Tests 03/05/25 05:09 Test 03/05/25 05:09 Range/Units Serum Glucose 300 H 74-106 mg/dL Assessment/Plan Did have repeated chest pain in AM and was given Morphine. EKG was non- revealing. Patient is a 54-year-old gentleman who presented with few days of chest discomfort. Chest pain worsened and he decided to come to the hospital. It is of note that the patient does have history of coronary artery disease and has been not compliant with his medications. Last left heart catheterization was March 2024 when he had PCI to LAD. Previously he had systolic heart failure and then ejection fraction improved. Cardiology is involved for cardiac aspects of care. It seems that the patient's blood pressure at home was in 200s. Is being managed in telemetry. Not in acute distress. No active chest pain. No JVD. Lying flat in bed. No carotid bruit. No goiter. Not using accessory muscles of breathing. Lungs are clear to auscultation. Cardiac: Regular, no thrill/gallop. Systolic murmur 2/6 in the apex is heard. Abdomen is soft. Bowel sound is positive. There is no gross mass/hepatomegaly. Extremities do not reveal edema. Dorsalis pedis is 2+ bilateral. There was no gross lateralized neurologic deficit. Past medical history includes morbid obesity, diabetes mellitus, CKD, BPH, gout, kidney stones, hypertension, hyperlipidemia, coronary artery disease and status post PCI and history of systolic heart failure which later on improved (HFimp EF). He is ex-smoker. Does have baseline history of noncompliance with medications Echocardiogram of July 09 2022 revealed ejection fraction of 25%, dilated 4 chambers, moderate MR/AI and end-stage dilated cardiomyopathy. Left heart catheterization of April 01, 2024 revealed proximal RCA to be [employer] with [id number] collaterals. There was patent stents in LCX. There was 95% proximal LAD disease for which PCI was performed. Echocardiogram (performed in the office) in August 2024 revealed preserved left ventricular systolic function Creatinine: 1.69 - 1.47 - 1.63 Potassium: 4.7 - 4.1 - 3.6 D-dimer: <0.19 - 0.20 Troponin: 580 - 586 - 599 BNP: 146.39 Hgb A1c: 12.1 Chest xry revealed: IMPRESSION: 1. No acute cardiopulmonary disease EKG revealed sinus rhythm with nonspecific ST-T changes and old inferior DC Tele reveals sinus rhythm Echocardiogram revealed: Left ventricle: Mild concentric left ventricular hypertrophy was seen. LVEF was around 50%. Mild diffuse hypokinesis of left ventricle was seen. Abnormal relaxation of left ventricular diastolic function was observed. Right ventricle: Right ventricle was normal-sized with normal systolic function. Both atria were normal-sized. Aortic valve was not well visualized. Mild aortic insufficiency was seen. There was no aortic stenosis. Mild mitral regurgitation was seen. Trace tricuspid regurgitation was seen. Pulmonary valve was not well visualized. As there was no good tricuspid regurgitation jet, right ventricular systolic pressure could not be estimated. Left heart catheterization was performed. Patient was found to have triple- vessel coronary artery disease. RCA was known to be [employer]ER with collaterals from left. Patient received PCI (drug-eluting stent deployment) to mid LAD. He also received drug-eluting stent in OM1 and also in OM2. It was loaded with aspirin/Plavix. Patient is a 54-year-old gentleman who presented with intermittent / atypical chest pain. Does have baseline history of coronary artery disease and has had multiple stents. Has not been compliant with his medications (mentions that he was not taking his Brilinta correctly). Troponin has been elevated. It is of note that the troponin has remained the same and ACS can not be proven. Still as the patient has risk factors and past history and presented with chest pain, ischemic workup can be justified/is suggested. Did have hypertension in the field. Hypertensive emergency could have contributed to the clinical picture. He is noncompliance which could have contributed to the clinical picture Chest pain Non-STEMI,? CHAVA on CKD Diabetes mellitus Obesity Hypertension Hyperlipidemia Noncompliance to medications Hypertensive emergency non-compliant with meds including insulin Cardiac suggestion for management: Manage on telemetry Follow-up electrolytes and kidney function tests and correct abnormalities Aspirin / Plavix High potency statin, beta mireille, CAMACHO inhibitor versus ARB Did have repeated chest pain in AM and was given Morphine. EKG was non- revealing. Will request to repeat labs and observe one extra day. To use Nitro in case of pain. Control diabetes Patient was counseled to be compliant with medication and follow up Lifestyle and risk factor modification is advised Further evaluation and management depends on the above and clinical course A total of 55 minutes was spent reviewing the patient record, examining the patient, making a diagnostic and therapeutic plan, discussing this plan with medical personnel, following up on diagnostic studies and following the patient for clinical stability excluding any and all procedures. At least 50% of this time was spent in direct, [id number] contact. Thank you for allowing me to participate in this patient's care. Further recommendations will depend on patient's clinical course. Please do not hesitate to contact me if you have any questions or concerns. This medical document was created using electronic medical record system with [employer] computerized dictation system. Although this document has been carefully reviewed, there may still be some phonetic and typographical errors. These areas are purely typographical due to the imperfection of the software programs, and do not reflect any compromise in the patient's medical care. Plan discussed with: Patient, Other (nurse) SHAY CARRIZALES MD Mar 06, 2025 07:37
[2025-03-06 09:25] LABS: Hematocrit 40.1 % (41.0-53.0); Hemoglobin 14.2 g/dL (13.5-17.5); Mean Corpuscular Hemoglobin 31.0 pg (28.0-32.0); Mean Corpuscular Volume 87.9 fL (80.0-100.0); Nucleated Red Blood Cells % 0.1 %
[2025-03-06] MEDS: CLOPIDOGREL BISULFATE 75 MG TAB PO SCH ×2 (09:34→09:35)
[2025-03-06 09:45] LABS: Alanine Aminotransferase 31 U/L (7-40); Albumin 4.0 g/dL (3.2-4.8); Anion Gap 11 (5-15); BUN/Creatinine Ratio 9.1 (10.0-20.0); Blood Urea Nitrogen 13 mg/dL (9-23); Carbon Dioxide 21 mmol/L (20-31); Chloride 105 mmol/L (98-107); Potassium 4.1 mmol/L (3.5-5.1); Sodium 137 mmol/L (136-145); Total Protein 6.7 g/dL (5.7-8.2)
[2025-03-06 09:46] LABS: Bilirubin, Total 0.6 mg/dL (0.2-1.0)
[2025-03-06 10:12] LABS: Alkaline Phosphatase 134 U/L (46-116); Calcium 8.7 mg/dL (8.7-10.4); Glucose 236 mg/dL (74-106)
--- NOTE | 2025-03-06 11:08 | DVHPN2 ---
Progress Note - Dictate Date Seen: Mar 06, 2025 Medical Necessity Reason Pt with a Central, PICC or Fol: No vital signs Vital Sign Date Time Temp Pulse Resp B/P (MAP) Pulse Ox O2 Delivery O2 Flow Rate FiO2 03/06/25 09:00 98.2 77 19 146/99 (115) 98 98.2 03/06/25 07:45 Room Air* 0 21 Total Intake and Output 03/05/25 03/05/25 03/06/25 15:00 23:00 07:00 Intake Total 520 ml 700 ml Balance 520 ml 700 ml medications Current Medications Medications Dose Ordered Sig/Prince Route Start Time Stop Time Status Last Admin Dose Admin Ondansetron HCl 4 mg Q4HP PRN IV 03/02/25 18:45 Docusate Sodium 100 mg BIDPRN PRN PO 03/02/25 18:45 Morphine Sulfate 2 mg Q4HPRN PRN IV 03/02/25 18:45 03/05/25 12:09 2 MG Nitroglycerin 0.4 mg Q5MINP PRN SL 03/02/25 18:45 03/04/25 11:55 0.4 MG Morphine Sulfate 2 mg Q30M PRN IV 03/02/25 18:45 03/06/25 05:20 2 MG Sodium Chloride 1,000 ml @ 75 mls/hr [id number] IV 03/02/25 19:00 03/06/25 03:17 75 MLS/HR Allopurinol 100 mg DAILY PO 03/04/25 10:00 03/06/25 09:35 100 MG Metoprolol Tartrate 25 mg TID PO 03/03/25 14:00 03/06/25 06:05 25 MG Tamsulosin HCl 0.4 mg QPM PO 03/03/25 18:00 03/05/25 18:26 0.4 MG Pantoprazole Sodium 40 mg DAILY@0600 PO 03/04/25 06:00 03/06/25 06:04 40 MG Diagnostic Test (Pha) 1 strip ACHS 03/03/25 11:30 03/06/25 07:00 1 STRIP Insulin Human Regular HS SC 03/03/25 22:00 03/03/25 20:58 8 UNITS Insulin Human Regular AC SC 03/03/25 11:30 03/03/25 16:57 6 UNITS Dextrose 50 ml UD PRN IV 03/03/25 11:15 Aspirin 81 mg DAILY PO 03/04/25 10:00 03/06/25 09:35 81 MG Alprazolam 0.5 mg Q6HPRN PRN PO 03/04/25 14:30 03/05/25 13:14 0.5 MG Atorvastatin Calcium 40 mg HS PO 03/05/25 22:00 03/05/25 22:22 40 MG Clopidogrel Bisulfate 75 mg DAILY PO 03/06/25 10:00 Clopidogrel Bisulfate 75 mg DAILY PO 03/06/25 10:00 03/06/25 09:35 75 MG Zolpidem Tartrate 5 mg HSPRN PRN PO 03/05/25 21:45 03/05/25 23:24 5 MG objective General Appearance: alert, no distress HEENT: EOMI, PERRLA, normal external inspect of ears, no icterus, no nasal drainage Neck: no carotid bruit, no jugular venous distention (JVD), no lymphadenopathy Chest: normal thorax Respiratory: clear to auscultation, normal air movement Cardiovascular: regular rate and rhythm, no diastolic murmur, no jugular venous distention (JVD), no rub, no systolic murmur Abdominal: soft, no hepatomegaly, no mass, no splenomegaly, no tenderness Genitourinary: grossly normal external Musculoskeletal: no joint tenderness, no swelling Extremities: normal pulses, no calf tenderness, no clubbing, no cyanosis, no edema Skin: no bruising, no jaundice, no rash Neurological: alert, No focal deficit laboratory and microbiology Laboratory Tests 03/06/25 08:59 Test 03/06/25 08:59 Range/Units Serum Glucose 236 H 74-106 mg/dL Problem List 1. Unstable angina Monitor, cardiology consult, echocardiogram 2. Benign essential HTN Monitor, antihypertensives 3. DM II with hyperglycemia Monitor, insulin ss 4. CAD s/p PTCA x2 Monitor restart ASA and Brilinta 5. Obesity Monitor, cardiac diet 6. Gout Monitor, medications 7. BPH Monitor, restart Flomax 8. HLD Monitor, restart Atorvastatin, lipid panel Assessment/Plan Subjective: Patient is awake and alert. Objective: Spoke with the patient and his at bedside. Patient was admitted for unstable angina and is status post Home Management Supervisor with Dr. Cardenas yesterday, during which three stents were placed. Patient now has a total of five stents. He experienced chest pain last night. Patient has a history of hyperlipidemia, hypertension, and medical noncompliance. He was reeducated on the importance of strict adherence to dual antiplatelet therapy as prescribed. Plan: Monitor EKG. Administer nitroglycerin as needed for chest pain. Plan for discharge tomorrow if cleared by cardiology. Plan discussed with: Patient, Other ISA GRANT NP Mar 06, 2025 11:08
[2025-03-07 01:00] VITALS: BP 131/85; PULSE 87; RESP 18; TEMP 97.3; O2SAT 98
[2025-03-07 05:00] VITALS: BP 150/101; PULSE 86; RESP 18; TEMP 97.5; O2SAT 96
[2025-03-07 06:04] LABS: Hematocrit 38.1 % (41.0-53.0); Hemoglobin 13.6 g/dL (13.5-17.5); Mean Corpuscular Hemoglobin 31.2 pg (28.0-32.0); Mean Corpuscular Volume 87.4 fL (80.0-100.0); Nucleated Red Blood Cells % 0.2 %
[2025-03-07 06:30] LABS: Alanine Aminotransferase 34 U/L (7-40); Albumin 3.8 g/dL (3.2-4.8); Anion Gap 14 (5-15); BUN/Creatinine Ratio 11.2 (10.0-20.0); Blood Urea Nitrogen 19 mg/dL (9-23); Carbon Dioxide 20 mmol/L (20-31); Chloride 103 mmol/L (98-107); Potassium 3.6 mmol/L (3.5-5.1); Sodium 137 mmol/L (136-145); Total Protein 6.5 g/dL (5.7-8.2)
[2025-03-07 06:31] LABS: Bilirubin, Total 0.5 mg/dL (0.2-1.0)
[2025-03-07 06:32] LABS: Alkaline Phosphatase 133 U/L (46-116); Calcium 8.7 mg/dL (8.7-10.4); Glucose 239 mg/dL (74-106)
[2025-03-07 08:00] VITALS: PULSE 68; PULSE 84; RESP 18; O2SAT 98
[2025-03-07] MEDS ORDERED: ASPI-543 PO (08:03)
[2025-03-07] MEDS ORDERED: CLOP75TA70 PO (08:03)
[2025-03-07] MEDS ORDERED: NITR0.4S29 SL (08:03)
[2025-03-07] MEDS ORDERED: ALPR0.5T PO ×2 (08:03→17:08)
--- NOTE | 2025-03-07 08:05 | DVHDS2 ---
Discharge Summary Date of Admission Mar 02, 2025 at 18:45 Date of Discharge: Mar 07, 2025 Labs/Diagnostic Data: Laboratory Results Test 03/07/25 06:18 03/07/25 04:44 03/05/25 05:09 03/04/25 20:22 POC Glucose 226 mg/dl (70-106) White Blood Count 7.1 10^3/uL (4.4-10.8) Red Blood Count 4.36 10^6/uL (4.5-5.90) Hemoglobin 13.6 g/dL (13.5-17.5) Hematocrit 38.1 % (41.0-53.0) Mean Corpuscular Volume 87.4 fL (80.0-100.0) Mean Corpuscular Hemoglobin 31.2 pg (28.0-32.0) Mean Corpuscular Hemoglobin Concent 35.7 g/dL (32.0-36.0) Red Cell Distribution Width 13.2 % (11.8-14.3) Platelet Count 272 10^3/uL (140-450) Mean Platelet Volume 7.9 fL (6.9-10.8) Neutrophils (%) (Auto) 57.2 % (37.0-80.0) Lymphocytes (%) (Auto) 29.5 % (10.0-50.0) Monocytes (%) (Auto) 6.2 % (0.0-12.0) Eosinophils (%) (Auto) 6.0 % (0.0-7.0) Basophils (%) (Auto) 1.1 % (0.0-2.0) Neutrophils # (Auto) 4.1 10 ^3/uL (1.6-8.6) Lymphocytes # (Auto) 2.1 10 ^3/uL (0.4-5.4) Monocytes # (Auto) 0.4 10 ^3/uL (0-1.3) Eosinophils # (Auto) 0.4 10 ^3/uL (0-0.8) Basophils # (Auto) 0.1 10 ^3/uL (0-0.2) Nucleated Red Blood Cells 0.2 % Sodium Level 137 mmol/L (136-145) Potassium Level 3.6 mmol/L (3.5-5.1) Chloride Level 103 mmol/L (98-107) Carbon Dioxide Level 20 mmol/L (20-31) Anion Gap 14 (5-15) Blood Urea Nitrogen 19 mg/dL (9-23) Creatinine 1.69 mg/dL (0.700-1.30) Glomerular Filtration Rate Calc 48 mL/min (>90) BUN/Creatinine Ratio 11.2 (10.0-20.0) Serum Glucose 239 mg/dL (74-106) Calcium Level 8.7 mg/dL (8.7-10.4) Total Bilirubin 0.5 mg/dL (0.2-1.0) Aspartate Amino Transferase (AST) 26 U/L (13-40) Alanine Aminotransferase (ALT) 34 U/L (7-40) Alkaline Phosphatase 133 U/L (46-116) Total Protein 6.5 g/dL (5.7-8.2) Albumin 3.8 g/dL (3.2-4.8) Prothrombin Time 9.7 sec (9.3-11.8) Prothrombin Time INR 0.91 (0.9-1.15) Magnesium Level 2.1 mg/dL (1.6-2.6) Urine Color Colorless (Yellow) Urine Clarity Turbid (Clear) Urine pH 5.5 (5.0-9.0) Urine Specific [place] 1.014 (1.001-1.035) Urine Protein Negative (Negative) Urine Ketones Negative (Negative) Urine Blood 3+ /uL (Negative) Urine Nitrite Negative (Negative) Urine Bilirubin Negative (Negative) Urine Urobilinogen Normal mg/dL (Negative) Urine Leukocyte Esterase Negative /uL (Negative) Urine RBC 1637 /hpf (0 - 3) Urine Microscopic WBC 17 /HPF (0-3) Urine Squamous Epithelial Cells None seen /hpf (<5) Urine Bacteria None seen /hpf (None Seen) Urine Glucose 4+ mg/dL (Normal) Test 03/03/25 20:51 03/03/25 05:58 03/02/25 20:11 D-Dimer, Quantitative 0.20 mg/L FEU (0.0-0.49) Hemoglobin A1c 12.1 % A1C (<5.7) B-Type Natriuretic Peptide 146.39 pg/mL (0-100) Triglycerides Level 974 mg/dL (< 150) Cholesterol Level 198 mg/dL (< 200) LDL Cholesterol 55 mg/dL (< 100) HDL Cholesterol 27 mg/dL (40-59) Troponin I High Sensitivity 599 ng/L (</=54) Other Laboratory Tests 03/07/25 04:44 Brief Hx & Hospital Course: 54 y/o male patient with hx of HTN, NSTEMI, DM, CHAVA, gout presents with c/o chest pain x3 days. Patient reportedly has not been compliant with his medications the past few days. EMS found patient to be hypertensive with systolic blood pressure in the 200s. Patient was admitted on March 01 2025 for NSTEMI. Patient was seen by cardiology. Apparently he had a stent placed 1 year ago but he has not been compliant with his dual antiplatelet therapy with Brilinta and aspirin. According to the patient and his he was only taking Brilinta once a day and sometimes missing several days in between. Patient also not compliant with aspirin. Patient was seen and evaluated by cardiology. Echocardiogram was done. Patient was taken back to [facility] for more stents were placed. Patient was found to have 3 vessel disease. Patient was kept overnight after procedure due to recurrent chest pain. Nitro was given and patient reevaluated the next day. Patient was then cleared for discharge by cardiology and he will now be discharged home on Plavix and aspirin. Patient also had periods of anxiety. Xanax was started and he was instructed to follow-up with his PCP in 1 week and to obtain a referral for psychiatry for anxiety. There were no complaints or new complaints upon discharge, all questions and concerns were answered. Patient was advised to return to the ER or call 911 if any headaches, dizziness, shortness of breath, chest pain, bleeding, fevers, or worsening of medical condition. Patient/Family was counseled about treatment plan, medications, possible side effects, patient verbalized understanding. All questions were answered to the best of my ability. The patient symptoms improved and they are okay to be DC. Condition at Discharge: Stable Final Diagnosis/Problems List Chest pain, s/p stent placement Discharge Disposition: Home Discharge Instruct/Medications Diet: Cardiac 2g Na,low cholest Activity: No Restrictions, As Tolerated Scheduled Allopurinol (Zyloprim Tablet), 1 TAB PO DAILY, (Reported) Aspirin (Aspir-Low), 81 MG PO DAILY Atorvastatin Calcium (Atorvastatin Calcium), 1 TAB PO QPM, (Reported) Cholecalciferol (Vitamin D3), 1 CAP PO QWEEKLY, (Reported) Clopidogrel Bisulfate (Clopidogrel), 1 TAB PO DAILY Insulin Glargine (Insulin Glargine Solostar), 100 UNIT SC DAILY Insulin Lispro (Humalog Kwikpen), 100 UNIT SC AC Metoprolol Tartrate (Metoprolol Tartrate), 25 MG PO TID Nitroglycerin (Ntrostat Sublingual), 0.4 MG SL PRN Tamsulosin Hcl (Flomax), 1 CAP PO DAILY Scheduled PRN Alprazolam (Xanax), 1 TAB PO BID PRN Discontinued Medications Oxycodone HCl (Oxycodone Hydrochloride), 5 MG PO TID PRN Oxycodone Hcl (Oxycodone Hcl), 5 MG PO BID Ticagrelor Base (Brilinta), 90 MG PO BID Durable Medical Equipment Blood Glucose Monitoring Suppl (Easy Touch Glucose Monito), EA XX, (DME) Insulin Pen Needle (Bd Ultra-Fine Mini Pen Ne), 16 XX QID, (DME) Discharge Statement: "Patient was advised to return to the ER or call 911 if any headaches, dizziness, shortness of breath, chest pain, abdominal pain, bleeding, fevers, or worsening of medical condition. Patient was counseled about treatment plan, medications, possible side effects, patientverbalized understanding. All questions were answered to the best of my ability. This discharge took greater then 30 minutes in planning, reviewing documentation, counseling the patient, and discussing with other team members." ASSESSMENT ASSESSMENT Assessment Chest pain, s/p stent placement ISA GRANT NP Mar 07, 2025 08:05
--- NOTE | 2025-03-07 08:48 | DVHPN2 ---
Progress Note - Dictate Date Seen: Mar 07, 2025 Medical Necessity Reason Pt with a Central, PICC or Fol: No vital signs Vital Sign Date Time Temp Pulse Resp B/P (MAP) Pulse Ox O2 Delivery O2 Flow Rate FiO2 03/07/25 08:00 84 18 98 Room Air* 0 21 03/07/25 06:41 141/90 03/07/25 05:00 97.5 97.5 Total Intake and Output 03/06/25 03/06/25 03/07/25 15:00 23:00 07:00 Intake Total 1050 ml 575 ml Balance 1050 ml 575 ml medications Current Medications Medications Dose Ordered Sig/Prince Route Start Time Stop Time Status Last Admin Dose Admin Ondansetron HCl 4 mg Q4HP PRN IV 03/02/25 18:45 Docusate Sodium 100 mg BIDPRN PRN PO 03/02/25 18:45 Morphine Sulfate 2 mg Q4HPRN PRN IV 03/02/25 18:45 03/05/25 12:09 2 MG Nitroglycerin 0.4 mg Q5MINP PRN SL 03/02/25 18:45 03/04/25 11:55 0.4 MG Morphine Sulfate 2 mg Q30M PRN IV 03/02/25 18:45 03/06/25 05:20 2 MG Sodium Chloride 1,000 ml @ 75 mls/hr [id number] IV 03/02/25 19:00 03/07/25 04:46 75 MLS/HR Allopurinol 100 mg DAILY PO 03/04/25 10:00 03/06/25 09:35 100 MG Metoprolol Tartrate 25 mg TID PO 03/03/25 14:00 03/07/25 05:41 25 MG Tamsulosin HCl 0.4 mg QPM PO 03/03/25 18:00 03/06/25 17:23 0.4 MG Pantoprazole Sodium 40 mg DAILY@0600 PO 03/04/25 06:00 03/07/25 05:41 40 MG Diagnostic Test (Pha) 1 strip ACHS 03/03/25 11:30 03/07/25 06:21 1 STRIP Insulin Human Regular HS SC 03/03/25 22:00 03/03/25 20:58 8 UNITS Insulin Human Regular AC SC 03/03/25 11:30 03/03/25 16:57 6 UNITS Dextrose 50 ml UD PRN IV 03/03/25 11:15 Aspirin 81 mg DAILY PO 03/04/25 10:00 03/06/25 09:35 81 MG Alprazolam 0.5 mg Q6HPRN PRN PO 03/04/25 14:30 03/05/25 13:14 0.5 MG Atorvastatin Calcium 40 mg HS PO 03/05/25 22:00 03/06/25 21:47 40 MG Clopidogrel Bisulfate 75 mg DAILY PO 03/06/25 10:00 Clopidogrel Bisulfate 75 mg DAILY PO 03/06/25 10:00 03/06/25 09:35 75 MG Zolpidem Tartrate 5 mg HSPRN PRN PO 03/05/25 21:45 03/06/25 22:51 5 MG laboratory and microbiology Laboratory Tests 03/07/25 04:44 Test 03/07/25 04:44 Range/Units Serum Glucose 239 H 74-106 mg/dL Assessment/Plan No more chest pain. No episodes overnight. Patient is a 54-year-old gentleman who presented with few days of chest discomfort. Chest pain worsened and he decided to come to the hospital. It is of note that the patient does have history of coronary artery disease and has been not compliant with his medications. Last left heart catheterization was March 2024 when he had PCI to LAD. Previously he had systolic heart failure and then ejection fraction improved. Cardiology is involved for cardiac aspects of care. It seems that the patient's blood pressure at home was in 200s. Is being managed in telemetry. Not in acute distress. No active chest pain. No JVD. Lying flat in bed. No carotid bruit. No goiter. Not using accessory muscles of breathing. Lungs are clear to auscultation. Cardiac: Regular, no thrill/gallop. Systolic murmur 2/6 in the apex is heard. Abdomen is soft. Bowel sound is positive. There is no gross mass/hepatomegaly. Extremities do not reveal edema. Dorsalis pedis is 2+ bilateral. There was no gross lateralized neurologic deficit. Past medical history includes morbid obesity, diabetes mellitus, CKD, BPH, gout, kidney stones, hypertension, hyperlipidemia, coronary artery disease and status post PCI and history of systolic heart failure which later on improved (HFimp EF). He is ex-smoker. Does have baseline history of noncompliance with medications Echocardiogram of July 09 2022 revealed ejection fraction of 25%, dilated 4 chambers, moderate MR/AI and end-stage dilated cardiomyopathy. Left heart catheterization of April 01, 2024 revealed proximal RCA to be [employer] with [id number] collaterals. There was patent stents in LCX. There was 95% proximal LAD disease for which PCI was performed. Echocardiogram (performed in the office) in August 2024 revealed preserved left ventricular systolic function Creatinine: 1.69 - 1.47 - 1.63 - 1.43 - 1.69 Potassium: 4.7 - 4.1 - 3.6 - 4.1 - 3.6 D-dimer: <0.19 - 0.20 Troponin: 580 - 586 - 599 BNP: 146.39 Hgb A1c: 12.1 Chest xry revealed: IMPRESSION: 1. No acute cardiopulmonary disease EKG revealed sinus rhythm with nonspecific ST-T changes and old inferior CO Tele reveals sinus rhythm Echocardiogram revealed: Left ventricle: Mild concentric left ventricular hypertrophy was seen. LVEF was around 50%. Mild diffuse hypokinesis of left ventricle was seen. Abnormal relaxation of left ventricular diastolic function was observed. Right ventricle: Right ventricle was normal-sized with normal systolic function. Both atria were normal-sized. Aortic valve was not well visualized. Mild aortic insufficiency was seen. There was no aortic stenosis. Mild mitral regurgitation was seen. Trace tricuspid regurgitation was seen. Pulmonary valve was not well visualized. As there was no good tricuspid regurgitation jet, right ventricular systolic pressure could not be estimated. Left heart catheterization was performed. Patient was found to have triple- vessel coronary artery disease. RCA was known to be [employer] with collaterals from left. Patient received PCI (drug-eluting stent deployment) to mid LAD. He also received drug-eluting stent in OM1 and also in OM2. It was loaded with aspirin/Plavix. Patient is a 54-year-old gentleman who presented with intermittent / atypical chest pain. Does have baseline history of coronary artery disease and has had multiple stents. Has not been compliant with his medications (mentions that he was not taking his Brilinta correctly). Troponin has been elevated. It is of note that the troponin has remained the same and ACS can not be proven. Still as the patient has risk factors and past history and presented with chest pain, ischemic workup can be justified/is suggested. Did have hypertension in the field. Hypertensive emergency could have contributed to the clinical picture. He is noncompliance which could have contributed to the clinical picture Chest pain Non-STEMI,? CHAVA on CKD Diabetes mellitus Obesity Hypertension Hyperlipidemia Noncompliance to medications Hypertensive emergency non-compliant with meds including insulin Cardiac suggestion for management: Manage on telemetry Follow-up electrolytes and kidney function tests and correct abnormalities Aspirin / Plavix High potency statin, beta mireille, CAMACHO inhibitor versus ARB Control diabetes Cardiac harrington, can be followed as outpatient Patient was counseled to be compliant with medication and follow up Lifestyle and risk factor modification is advised Further evaluation and management depends on the above and clinical course A total of 55 minutes was spent reviewing the patient record, examining the patient, making a diagnostic and therapeutic plan, discussing this plan with medical personnel, following up on diagnostic studies and following the patient for clinical stability excluding any and all procedures. At least 50% of this time was spent in direct, [id number] contact. Thank you for allowing me to participate in this patient's care. Further recommendations will depend on patient's clinical course. Please do not hesitate to contact me if you have any questions or concerns. This medical document was created using electronic medical record system with edulio computerized dictation system. Although this document has been carefully reviewed, there may still be some phonetic and typographical errors. These areas are purely typographical due to the imperfection of the software programs, and do not reflect any compromise in the patient's medical care. Plan discussed with: Patient, Other (nurse) SHAY CARRIZALES MD Mar 07, 2025 08:48
== END 2025-03-07 11:30 | disposition home or self-care (01) | DRG 175 ==
LOC: EDUNIT# 17:05 → EDBD 17:05 → ER 17:07 → OBSVTOIN 18:45 → OVERFLOW 18:45 → TELE-CENTR 22:05
PROVIDERS: ADMIT Nurse Practitioner; ATTEND Nurse Practitioner
PROC: 4A023N7 Measurement of Cardiac Sampling and Pressure, Left Heart, Percutaneous Approach (ICD-10-PCS; principal; 2025-03-05)
PROC: B211YZZ Fluoroscopy of Multiple Coronary Arteries using Other Contrast (ICD-10-PCS; 2025-03-05)
PROC: B215YZZ Fluoroscopy of Left Heart using Other Contrast (ICD-10-PCS; 2025-03-05)
PROC: 027237Z Dilation of Coronary Artery, Three Arteries with Four or More Drug-eluting Intraluminal Devices, Percutaneous Approach (ICD-10-PCS; 2025-03-05)
DX: T82.855A Stenosis of coronary artery stent, initial encounter (principal); I21.4 Non-ST elevation (NSTEMI) myocardial infarction; I16.1 Hypertensive emergency; I13.0 Hypertensive heart and chronic kidney disease with heart failure and stage 1 through stage 4 chronic kidney disease, or unspecified chronic kidney disease; I50.22 Chronic systolic (congestive) heart failure; N17.9 Acute kidney failure, unspecified; E11.65 Type 2 diabetes mellitus with hyperglycemia; N18.9 Chronic kidney disease, unspecified; E66.01 Morbid (severe) obesity due to excess calories; E78.5 Hyperlipidemia, unspecified; N40.0 Benign prostatic hyperplasia without lower urinary tract symptoms; M10.9 Gout, unspecified; Z68.30 Body mass index [BMI] 30.0-30.9, adult; E11.22 Type 2 diabetes mellitus with diabetic chronic kidney disease; F41.9 Anxiety disorder, unspecified; I25.10 Atherosclerotic heart disease of native coronary artery without angina pectoris; Y83.1 Surgical operation with implant of artificial internal device as the cause of abnormal reaction of the patient, or of later complication, without mention of misadventure at the time of the procedure; I42.0 Dilated cardiomyopathy; Z79.899 Other long term (current) drug therapy; Z79.02 Long term (current) use of antithrombotics/antiplatelets; Z79.4 Long term (current) use of insulin; Z87.442 Personal history of urinary calculi; Z87.891 Personal history of nicotine dependence; Z88.5 Allergy status to narcotic agent; Z88.6 Allergy status to analgesic agent; Z91.148 Patient's other noncompliance with medication regimen for other reason
CPT/HCPCS: 36415; 71045; 80048; 80053; 80061; 81001; 82962; 83036; 83735; 83880; 84484; 85025; 85379; 85610; 87086; 87186; 92928; 92929; 92941; 93005; 93306; 93458; 99152; 99291; C1874; G0378; J1815; J2250; Q9967